=== PATIENT | female | born 1955 | race Caucasian/White ===

== ENCOUNTER → 2017-11-06 10:16 | Outpatient (CLI) | payer MEDICARE, OTHER, SELFPAY | PROVIDERS: Family Provider Family Medicine; PCP Family Medicine; Visit Provider Nurse Practitioner Acute Care | DX: G47.10 Hypersomnia, unspecified (principal) | CPT/HCPCS: 95806 ==

== ENCOUNTER → 2017-12-29 13:25 | Outpatient (CLI) | payer MEDICARE, OTHER, SELFPAY ==
[2017-12-29 15:49] LABS: Absolute Lymphocyte Count 2.29 X10^3/ul (0.83-4.51); Absolute Neutrophil Count 3.8 X10^3/uL (2.0-7.7); Basophil# 0.02 X10^3/uL; Basophil% 0.3 % (0-1); Eosinophil# 0.07 X10^3/uL; Hematocrit 42.3 % (37-47); Hemoglobin 13.6 g/dl (12.0-15.0); Lymphocyte # 2.29 X10^3/ul (4.0); Lymphocyte % 34.1 % (19-41); Mean Corp Hgb Conc 32.2 g/gl (32-36); Mean Corpuscular Volume 99.5 fL (81-99); Mean Platelet Vol. 9.5 fl (6.2-12.0); Monocyte# 0.49 X10^3/uL; Monocyte% 7.3 % (0-10); Neutrophil # 3.84 X10^3/uL (2.7-7.7); Neutrophil % 57.2 % (47-70); Platelet Count 314 K/mm3 (150-450); RBC Distribution Width CV 14.1 % (11.6-14.6); RBC Distribution Width SD 50.2 fl (35.1-43.9); Red Blood Count 4.25 M/mm3 (4.2-5.4); White Blood Count 6.7 K/mm3 (4.4-11.0)
[2017-12-29 15:58] LABS: POSITIVE COUNT NO; POSITIVE DIFFERENTIAL NO; POSITIVE MORPHOLOGY NO
[2017-12-29 16:10] LABS: ALB/GLOB Ratio 0.9 RATIO (0.9-2.4); AST(SGOT) 25 U/L (15-37); Alanine Aminotransfer ALT/SGPT 31 U/L (13-56); Albumin, Serum 3.6 g/dL (3.2-5.0); Alkaline Phosphatase 54 U/L (45-117); Anion Gap 6 (5-15); BUN 10 mg/dL (7-18); BUN/Creat Ratio 16.7 RATIO (10-20); Calcium,Total 8.9 mg/dL (8.5-10.1); Chloride 96 mmol/L (98-107); EST Glomerular Filtration Rate 108 mL/min (>60); Est Glom Filt Rate - Afr Amer 131 mL/min (>60); Globulin 3.8 g/dL (2.2-4.2); Glucose 71 mg/dL (74-106); Potassium 3.9 mmol/L (3.5-5.1); Protein, Total 7.4 g/dL (6.4-8.2); Sodium Level 133 mmol/L (136-145)
== END ==
PROVIDERS: Family Provider Family Medicine; PCP Family Medicine; Visit Provider Internal Medicine Rheumatology
DX: M05.79 Rheumatoid arthritis with rheumatoid factor of multiple sites without organ or systems involvement (principal); M79.7 Fibromyalgia; K21.0 Gastro-esophageal reflux disease with esophagitis; M81.0 Age-related osteoporosis without current pathological fracture; Z79.899 Other long term (current) drug therapy
CPT/HCPCS: 36415; 80053; 85025

== ENCOUNTER → 2018-01-01 08:47 | Outpatient (CLI) | payer MEDICARE, OTHER, SELFPAY ==
[2018-01-04 12:08] LABS: SJOGREN'S Anti-SS-A test < 0.2 AI (0.0-0.9); SJOGREN'S Anti-SS-B test < 0.2 AI (0.0-0.9)
[2018-01-05 06:07] LABS: QNTFERON TB Ag Minus Nil Value 0.02 IU/mL (.); QNTFERON TB Ag Value 0.04 IU/mL (.); QNTFERON TB Mitogen Value > 10.00 IU/mL (.); QNTFERON TB Nil Value 0.02 IU/mL (.)
[2018-01-06 11:32] LABS: QNTIFERON TB Gold Negative (Negative)
[2018-01-06 11:40] LABS: ANTINUCLEAR ANTIBODIES DIRECT Negative (Negative)
== END ==
PROVIDERS: Family Provider Family Medicine; PCP Family Medicine; Visit Provider Internal Medicine Rheumatology
DX: M06.89 Other specified rheumatoid arthritis, multiple sites (principal); M79.7 Fibromyalgia; K21.0 Gastro-esophageal reflux disease with esophagitis; M81.0 Age-related osteoporosis without current pathological fracture; M47.892 Other spondylosis, cervical region; M47.897 Other spondylosis, lumbosacral region; E03.9 Hypothyroidism, unspecified; E78.5 Hyperlipidemia, unspecified
CPT/HCPCS: 36415; 86038; 86235; 86480

== ENCOUNTER → 2018-02-03 12:39 | Outpatient (CLI) | payer OTHER, MEDICARE, SELFPAY ==
--- NOTE | 2018-02-03 12:41 | BI_ITS ---
MAMMOGRAPHY - BILATERAL SCREENING 3-D MORIAH SYNTHESIS REASON FOR EXAM: Female, 62 years old. Bilateral Screening 3-D tomosynthesis PERTINENT HISTORY: No significant family history. TECHNIQUE: 2-D mammograms and 3-D Moriah synthesis of the breast (s) were performed. CAD was performed. COMPARISON: August 26, 2016. FINDINGS: The breast composition is composed of scattered fibroglandular density. Scattered benign calcifications are seen. No dense spiculated masses or suspicious microcalcifications are identified. No architectural distortion is identified. There is no skin thickening or retraction. There has been no significant change since the prior study. BI/SCREENING MAMM (CAD), BILAT IMPRESSION: No mammographic signs of malignancy. Routine yearly mammograms recommended. ASSESSMENT CATEGORY: BIRADS Category 2: Benign. A letter regarding these results will be sent to the patient by the facility within 30 days. FOLLOW UP RECOMMENDATION: Yearly follow up mammogram recommended. (A) Approximately 10% of breast cancers are not detected by mammography. A normal mammogram should not delay biopsy of a clinically suspicious abnormality. Electronically Signed: Alejandro Ch MD at 15:46 EDT , Service support ,
== END ==
PROVIDERS: Family Provider Family Medicine; PCP Family Medicine; Visit Provider Obstetrics & Gynecology
DX: Z12.31 Encounter for screening mammogram for malignant neoplasm of breast (principal)
CPT/HCPCS: 77063; 77067

== ENCOUNTER → 2018-02-24 08:23 | Outpatient (CLI) | payer MEDICARE, OTHER, SELFPAY ==
--- NOTE | 2018-02-24 08:33 | RAD_ITS ---
STUDY: AIR-CONTRAST UPPER GI SERIES. REASON FOR EXAM: Female, 62 years old. Worsening dysphagia. FLUOROSCOPY TIME (if supplied): (0:37) minutes/seconds TECHNIQUE: The patient ingested barium. Multiple images of the esophagus, stomach and duodenum were obtained. COMPARISON: None. FINDINGS: The esophagus is unremarkable. There is no evidence of gastroesophageal reflux. No evidence of obstruction. The stomach and duodenum are unremarkable. No evidence of ulceration or mass lesion. There is evidence of prior vertebral plasty of the T11 and T12 vertebrae as well as prior fusion of the cervical spine and lower lumbar spine. RAD/Upper GI Series Only IMPRESSION: No acute abnormality is seen. Electronically Signed: Jere Emery MD at 15:38 EDT Tel [phone], Service support ,
--- NOTE | 2018-02-24 09:35 | VDLE_ITS ---
Reason For Study: PAIN Procedure LEFT Exam performed in department. GSV is normal. A preliminary report was called and/or faxed CFV is compressible, spontaneous, phasic, to Dr Araya. competent, and demonstrates normal augmentation. FV is compressible, spontaneous, phasic, competent and demonstrates normal augmentation. POP V is compressible, spontaneous, phasic, competent and demonstrates normal augmentation. T/P Trunk is compressible. PTV is compressible. LT PerV is compressible. Interpretation Summary Deep veins of the left lower extremity are patent and compressible segmentally. There is no evidence of left lower extremity deep vein thrombosis. Valvular competence appears intact within the proximal deep venous system on the left . The left greater saphenous vein appears patent and compressible segmentally. Ordering Physician: DIOGENES ARAYA Referring Physician: DIOGENES ARAYA Performed By: Linsey Ramon, MIYA, RVT
== END ==
PROVIDERS: Family Provider Family Medicine; PCP Family Medicine; Visit Provider Family Medicine
DX: M79.605 Pain in left leg (principal); R13.10 Dysphagia, unspecified
CPT/HCPCS: 74246; 93971

== ENCOUNTER → 2018-02-26 20:00 | Outpatient (CLI) | payer MEDICARE, OTHER, SELFPAY | PROVIDERS: Family Provider Family Medicine; PCP Family Medicine; Visit Provider Internal Medicine Critical Care Medicine | DX: G47.33 Obstructive sleep apnea (adult) (pediatric) (principal) | CPT/HCPCS: 95811 ==

== ENCOUNTER → 2018-03-23 12:29 | Outpatient (CLI) | payer MEDICARE, OTHER, SELFPAY ==
[2018-03-23 14:11] LABS: Absolute Lymphocyte Count 0.92 X10^3/ul (0.83-4.51); Absolute Neutrophil Count 2.4 X10^3/uL (2.0-7.7); Eosinophil# 0.04 X10^3/uL; Eosinophils% 1.1 % (0-5); Hematocrit 42.4 % (37-47); Hemoglobin 13.5 g/dl (12.0-15.0); Lymphocyte # 0.92 X10^3/ul (4.0); Lymphocyte % 25.8 % (19-41); Mean Corp Hgb Conc 31.8 g/gl (32-36); Mean Corpuscular Hgb 31.1 pg (27.0-32.0); Mean Corpuscular Volume 97.7 fL (81-99); Mean Platelet Vol. 9.6 fl (6.2-12.0); Monocyte# 0.19 X10^3/uL; Monocyte% 5.3 % (0-10); Neutrophil # 2.41 X10^3/uL (2.7-7.7); Neutrophil % 67.8 % (47-70); Platelet Count 287 K/mm3 (150-450); RBC Distribution Width SD 49.6 fl (35.1-43.9); Red Blood Count 4.34 M/mm3 (4.2-5.4); White Blood Count 3.6 K/mm3 (4.4-11.0)
[2018-03-23 14:25] LABS: ALB/GLOB Ratio 0.9 RATIO (0.9-2.4); AST(SGOT) 26 U/L (15-37); Alanine Aminotransfer ALT/SGPT 32 U/L (13-56); Albumin, Serum 3.6 g/dL (3.2-5.0); Alkaline Phosphatase 58 U/L (45-117); Anion Gap 6 (5-15); BUN 12 mg/dL (7-18); BUN/Creat Ratio 20.8 RATIO (10-20); Chloride 101 mmol/L (98-107); Creatinine, Serum 0.58 mg/dL (0.55-1.02); EST Glomerular Filtration Rate 112 mL/min (>60); Est Glom Filt Rate - Afr Amer 136 mL/min (>60); Globulin 3.8 g/dL (2.2-4.2); Glucose 55 mg/dL (74-106); Potassium 3.6 mmol/L (3.5-5.1); Protein, Total 7.4 g/dL (6.4-8.2); Sodium Level 139 mmol/L (136-145)
[2018-03-23 14:39] LABS: POSITIVE COUNT NO; POSITIVE DIFFERENTIAL NO; POSITIVE MORPHOLOGY NO
== END ==
PROVIDERS: Family Provider Family Medicine; PCP Family Medicine; Visit Provider Internal Medicine Rheumatology
DX: M05.79 Rheumatoid arthritis with rheumatoid factor of multiple sites without organ or systems involvement (principal); Z79.899 Other long term (current) drug therapy; M79.7 Fibromyalgia; K21.0 Gastro-esophageal reflux disease with esophagitis; M81.0 Age-related osteoporosis without current pathological fracture; M47.892 Other spondylosis, cervical region; M47.897 Other spondylosis, lumbosacral region; E03.9 Hypothyroidism, unspecified; E78.5 Hyperlipidemia, unspecified
CPT/HCPCS: 36415; 80053; 85025

== ENCOUNTER → 2018-06-23 09:38 | Outpatient (CLI) | payer MEDICARE, OTHER, SELFPAY ==
[2018-06-23 11:44] LABS: Absolute Lymphocyte Count 1.72 X10^3/ul (0.83-4.51); Absolute Neutrophil Count 2.8 X10^3/uL (2.0-7.7); Basophil# 0.01 X10^3/uL; Basophil% 0.2 % (0-1); Hematocrit 43.6 % (37-47); Lymphocyte # 1.72 X10^3/ul (4.0); Lymphocyte % 34.1 % (19-41); Mean Corp Hgb Conc 32.1 g/gl (32-36); Mean Corpuscular Hgb 31.5 pg (27.0-32.0); Mean Corpuscular Volume 98.2 fL (81-99); Mean Platelet Vol. 9.6 fl (6.2-12.0); Monocyte# 0.43 X10^3/uL; Monocyte% 8.5 % (0-10); Neutrophil # 2.78 X10^3/uL (2.7-7.7); Neutrophil % 55.2 % (47-70); POSITIVE COUNT NO; POSITIVE DIFFERENTIAL NO; POSITIVE MORPHOLOGY NO; Platelet Count 341 K/mm3 (150-450); RBC Distribution Width CV 14.1 % (11.6-14.6); RBC Distribution Width SD 49.8 fl (35.1-43.9); Red Blood Count 4.44 M/mm3 (4.2-5.4)
[2018-06-23 12:02] LABS: ALB/GLOB Ratio 0.8 RATIO (0.9-2.4); AST(SGOT) 26 U/L (15-37); Alanine Aminotransfer ALT/SGPT 31 U/L (13-56); Albumin, Serum 3.5 g/dL (3.2-5.0); Alkaline Phosphatase 71 U/L (45-117); Anion Gap 9 (5-15); BUN 11 mg/dL (7-18); BUN/Creat Ratio 18.8 RATIO (10-20); Calcium,Total 9.2 mg/dL (8.5-10.1); Chloride 98 mmol/L (98-107); Creatinine, Serum 0.58 mg/dL (0.55-1.02); EST Glomerular Filtration Rate 111 mL/min (>60); Est Glom Filt Rate - Afr Amer 134 mL/min (>60); Globulin 4.3 g/dL (2.2-4.2); Glucose 85 mg/dL (74-106); Potassium 3.8 mmol/L (3.5-5.1); Protein, Total 7.8 g/dL (6.4-8.2); Sodium Level 135 mmol/L (136-145)
== END ==
PROVIDERS: Family Provider Family Medicine; PCP Family Medicine; Visit Provider Internal Medicine Rheumatology
DX: M05.79 Rheumatoid arthritis with rheumatoid factor of multiple sites without organ or systems involvement (principal); M79.7 Fibromyalgia; K21.0 Gastro-esophageal reflux disease with esophagitis; M81.0 Age-related osteoporosis without current pathological fracture; M47.892 Other spondylosis, cervical region; M47.897 Other spondylosis, lumbosacral region; E03.9 Hypothyroidism, unspecified; E78.5 Hyperlipidemia, unspecified; Z79.899 Other long term (current) drug therapy
CPT/HCPCS: 36415; 80053; 85025

== ENCOUNTER → 2018-07-02 10:29 | Outpatient (CLI) | payer MEDICARE, OTHER, SELFPAY ==
[2018-07-02 11:06] LABS: Hemoglobin 13.5 g/dl (12.0-15.0)
[2018-07-02 11:35] LABS: Vitamin B12 1587 pg/mL (211-911)
[2018-07-02 12:35] LABS: Ferritin 59 ng/mL (8-252); Folates, (Folic Acid) > 100.00 ng/mL (3.1-55.4); Iron 91 ug/dL (50-170); Iron Binding Capacity,Total 337 ug/dL (250-450)
== END ==
PROVIDERS: Family Provider Family Medicine; PCP Family Medicine; Visit Provider Clinical Nurse Specialist Acute Care
DX: G47.31 Primary central sleep apnea (principal); G47.61 Periodic limb movement disorder; G25.81 Restless legs syndrome; D64.9 Anemia, unspecified
CPT/HCPCS: 36415; 82607; 82728; 82746; 83540; 83550; 85014; 85018

== ENCOUNTER → 2018-07-06 12:05 | Outpatient (CLI) | payer MEDICARE, OTHER, SELFPAY ==
[2018-07-06 13:36] LABS: Amphetamine Urine VISTA NEGATIVE (<1000 ng/mL); Barbiturate Urine VISTA NEGATIVE (< 200 ng/mL); Benzodiazepine Urine VISTA NEGATIVE (< 200 ng/mL); Cocaine Urine VISTA NEGATIVE (< 300 ng/mL); Ecstacy Urine VISTA POSITIVE (< 500 ng/mL); Methadone Urine VISTA POSITIVE (< 300 ng/mL); PCP Urine VISTA NEGATIVE (< 25 ng/mL); THC Urine VISTA NEGATIVE (< 50 ng/mL); Vista UDS pH Range 7
== END ==
PROVIDERS: Family Provider Family Medicine; PCP Family Medicine; Referring Provider Anesthesiology Pain Medicine; Visit Provider Anesthesiology Pain Medicine
DX: F11.20 Opioid dependence, uncomplicated (principal)
CPT/HCPCS: 80307

== ENCOUNTER → 2018-07-13 13:48 | Outpatient (CLI) | payer MEDICARE, OTHER, SELFPAY ==
[2018-07-13 16:12] LABS: Cholesterol 174 mg/dL (200); High Density Lipoprotein 57 mg/dL; Triglycerides 95 mg/dL; Very Low Density Lipoprotein 19 mg/dL (5-40)
== END ==
PROVIDERS: Family Provider Family Medicine; PCP Family Medicine; Referring Provider Internal Medicine Rheumatology; Visit Provider Internal Medicine Rheumatology
DX: M05.79 Rheumatoid arthritis with rheumatoid factor of multiple sites without organ or systems involvement (principal); Z79.899 Other long term (current) drug therapy; M79.7 Fibromyalgia; K21.0 Gastro-esophageal reflux disease with esophagitis; M81.0 Age-related osteoporosis without current pathological fracture; M47.892 Other spondylosis, cervical region; M47.897 Other spondylosis, lumbosacral region; E03.9 Hypothyroidism, unspecified; E78.5 Hyperlipidemia, unspecified
CPT/HCPCS: 36415; 80061

== ENCOUNTER → 2018-09-21 12:16 | Outpatient (CLI) | payer MEDICARE, OTHER, SELFPAY ==
[2018-09-15 10:56] VITALS: BMI 24.8
[2018-09-21 14:15] LABS: ALB/GLOB Ratio 0.9 RATIO (0.9-2.4); AST(SGOT) 33 U/L (15-37); Alanine Aminotransfer ALT/SGPT 35 U/L (13-56); Albumin, Serum 3.4 g/dL (3.2-5.0); Alkaline Phosphatase 54 U/L (45-117); Anion Gap 8 (5-15); BUN 10 mg/dL (7-18); BUN/Creat Ratio 16.5 RATIO (10-20); Chloride 100 mmol/L (98-107); Creatinine, Serum 0.61 mg/dL (0.55-1.02); EST Glomerular Filtration Rate 106 mL/min (>60); Est Glom Filt Rate - Afr Amer 128 mL/min (>60); Globulin 3.7 g/dL (2.2-4.2); Glucose 75 mg/dL (74-106); Potassium 3.9 mmol/L (3.5-5.1); Protein, Total 7.1 g/dL (6.4-8.2); Sodium Level 139 mmol/L (136-145)
[2018-09-21 14:18] LABS: Absolute Lymphocyte Count 1.76 X10^3/ul (0.83-4.51); Absolute Neutrophil Count 3.8 X10^3/uL (2.0-7.7); Basophil# 0.01 X10^3/uL; Basophil% 0.2 % (0-1); Eosinophil# 0.06 X10^3/uL; Hematocrit 41.1 % (37-47); Hemoglobin 13.2 g/dl (12.0-15.0); Lymphocyte # 1.76 X10^3/ul (4.0); Lymphocyte % 28.6 % (19-41); Mean Corp Hgb Conc 32.1 g/gl (32-36); Mean Corpuscular Hgb 31.7 pg (27.0-32.0); Mean Corpuscular Volume 98.8 fL (81-99); Mean Platelet Vol. 9.9 fl (6.2-12.0); Monocyte# 0.48 X10^3/uL; Monocyte% 7.8 % (0-10); Neutrophil # 3.84 X10^3/uL (2.7-7.7); Neutrophil % 62.2 % (47-70); POSITIVE COUNT NO; POSITIVE DIFFERENTIAL NO; POSITIVE MORPHOLOGY NO; Platelet Count 337 K/mm3 (150-450); RBC Distribution Width CV 14.1 % (11.6-14.6); Red Blood Count 4.16 M/mm3 (4.2-5.4); White Blood Count 6.2 K/mm3 (4.4-11.0)
--- OUTSIDE RECORDS SUMMARY | 2018-11-07 14:34 | XMS RPT_ITS ---
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 rule out Sjogren's Syndrome. 3. S/P LASIK (laser assisted in situ keratomileusis) of both eyes - ICD9: V45.69, ICD10: Z98.890 Monitor 4. Rheumatoid arthritis involving multiple sites with positive rheumatoid factor (HCC) - ICD9: 714.0, ICD10: M05.[address] Stewart. Olvin Baltazar MD I have confirmed and edited as necessary the relevant ophthalmic history, review of systems, surgical history, and ophthalmological examination findings as obtained by the ophthalmic technical staff. I have seen and examined Niru Roberson. I have discussed the examination findings, diagnosis, and treatment options with Niru Roberson and/or her family. I have also reviewed and agree with the assessment and plan as stated above and agree with all its relevant components. I gave the patient the opportunity to ask questions about the findings, diagnosis, and treatment options. CBC W/DIFF, AUTOMATED Collected: 12/29/2017 Status: F Source: KRISTIAN 1:42 PM [facility] REPOSITORY TYPE CODE TESTS RESULT OUT OF RANGE REFERENCE UNITS LAB L100.1000 4.4-11.0 K/mm3 Normal WBC 6.7 LAB L100.1200 4.2-5.4 M/mm3 Normal RBC 4.25 LAB L100.1300 12.0-15.0 g/dl Normal HGB 13.6 LAB L100.1400 37-47 % Normal HCT 42.3 LAB L100.1500 81-99 fL High MCV 99.5 LAB L100.1600 27.0-32.0 pg Normal MCH 32.0 LAB L100.1700 32-36 g/gl Normal MCHC 32.2 LAB L100.1810 11.6-14.6 % Normal RDW CV 14.1 LAB L100.1820 35.1-43.9 fl High RDW SD 50.2 LAB L100.1900 150-450 K/mm3 Normal PLT 314 LAB L100.2000 6.2-12.0 fl Normal MPV 9.5 LAB L100.2100 47-70 % Normal NEUT% 57.2 LAB L100.2200 19-41 % Normal LY% 34.1 LAB L100.2300 0-10 % Normal MONO% 7.3 LAB L100.2400 0-5 % Normal EO% 1.0 LAB L100.2500 0-1 % Normal BASO% 0.3 LAB L100.2550 0.0-0.9 % Normal IM GRAN % 0.100 Result Comment: IG% - Immature Granulocytes (promyelocytes, myelocytes and metamyelocytes) > 1% indicates that a LEFT SHIFT is Present. LAB L100.2620 2.0-7.7 X10 3/uL Normal Absolute Neut 3.8 LAB L100.2720 0.83-4.51 X10 3/ul Normal Absolute Lymph 2.29 Performed By: #### L100.0100 #### [facility] [address] [place], [address] COMPREHENSIVE METABOLIC Collected: 12/29/2017 Status: F Source: KRISTIAN GORE 1:42 PM [facility] REPOSITORY TYPE CODE TESTS RESULT OUT OF RANGE REFERENCE UNITS LAB L501.0100 74-106 mg/dL Low GLU 71 Result Comment: Please note revised GLUCOSE reference range effective 2017. LAB L501.1000 7-18 mg/dL Normal BUN 10 LAB L501.1100 0.55-1.02 mg/dL Normal CREAT,SERUM 0.60 Result Comment: The validity of the calculated GFR AND GFRAA in patients over 70 years has not been determined. Clinical correlation is essential. LAB L501.1110 >60 mL/min Normal EST GFR 108 Result Comment: Non- GFR Calc LAB L501.1115 >60 mL/min Normal EST GFR - AA 131 Result Comment: GFR Calc LAB L501.1300 10-20 RATIO Normal BUN/CRE 16.7 LAB L501.1500 6.4-8.2 g/dL T Normal PROT 7.4 LAB L501.1800 3.2-5.0 g/dL Normal ALB 3.6 LAB L501.1950 2.2-4.2 g/dL Normal GLOB 3.8 LAB L501.2000 0.9-2.4 RATIO Normal A/G 0.9 LAB L501.2200 8.5-10.1 mg/dL CA Normal 8.9 LAB L501.4100 15-37 U/L Normal AST 25 LAB L501.4305 45-117 U/L Normal ALK P 54 LAB L501.4405 13-56 U/L Normal ALT 31 Result Comment: Please note revised ALT reference range effective 2017. LAB L501.4600 0.20-1.00 mg/dL Normal T BILI 0.30 LAB L501.5300 136-145 mmol/L Low NA 133 LAB L501.5600 3.5-5.1 mmol/L Normal K 3.9 LAB L501.5900 98-107 mmol/L Low CL 96 LAB L501.6100 21.0-32.0 mmol/L Normal CO2 31.0 LAB L501.6200 5-15 Normal GAP 6 Performed By: #### L500.4050 #### [facility] [place], [address] ALLERGIES ALLERGIES DATE TYPE / CODE NAME / CODE REACTION SEVERITY SOURCE 09/15/2018 Drug adhesive Unknown Unknown [place] Allergy/416 tape/[id number](R Community 847847([facility] ED CT) Repository 09/15/2018 Drug fentanyl/H3229809 Other - anxiety [place] Krist[place] Allergy/416 71(RXNORM) Community 308986([facility] ED CT) Repository 09/15/2018 Drug valdecoxib/B37969 Hives Unknown Kristian Allergy/416 9503(RXNORM) Community 621967([facility] ED CT) Repository 09/20/2014 DRUG CALCITONIN OTHER: SEE C [facility] INGREDI/[address] [place] 697877(SNOM Repository ED CT) 07/22/2013 [facility] [place] 238656(SNOM Repository ED CT) 02/29/2004 DRUG [facility]COXIB [facility] Main [place] 969004(SNOM Repository ED CT) Drug/002640 Bextra Sikh 003([facility] CT) System Repository Drug/612418 fentaNYL Sikh 003([facility] CT) System Repository ENCOUNTERS ENCOUNTERS ADMIT/DISCHARGE ACCOUNT NUMBER ADMITTING ENCOUNTER LOCATION SOURCE CLASS 10/21/2018/10/21/[id number] [facility] Sikh Sikh [facility] ding:[facility] System IO Repository 10/21/[id number] Repository 10/20/2018/10/20/[id number] [facility] Sikh Sikh [facility] ding:[facility] System Repository 10/20/[id number] Repository 10/13/2018/10/15/19 [id number] Ambulatory [address] Main [place] Repository 10/07/2018/10/07/[id number] [facility] Sikh Sikh [facility] ding:[facility] System Repository 10/07/[id number] Repository 09/21/2018 [id number] Ambulatory [place] [facility] ding:MTLAB Repository 09/15/2018/09/15/20 [id number] Ambulatory BMSBuilding: [place] 18 [facility]MS.[facility] Hospital Repository 09/01/2018/09/03/20 [id number] Ambulatory [address] Repository 08/18/2018/08/20/20 [id number] Ambulatory [address] Repository 08/04/2018/08/05/20 [id number] Ambulatory [address] Repository 07/13/2018 [id number] [facility] ding[facility]MT[facility] Repository 07/06/2018 [id number] Ambulatory [facility] ding:LAB Repository 07/02/2018 [id number] [facility] ding:LAB Repository 06/23/2018 [id number] Ambulatory [facility] ding:MTLAB Repository 06/08/2018/06/08/20 [id number] Ambulatory BMSBuilding: [place] 18 BMS.[facility] Hospital Repository 04/30/2018/05/04/20 [id number] Ambulatory [address] Repository 03/23/2018 [id number] Ambulatory [facility] ding:MTLAB Repository 02/26/2018 [id number] Ambulatory [facility] Hospital ding:SL Repository 02/24/2018 [id number] Ambulatory [facility] ding:CVS Repository 02/03/2018 [id number] Ambulatory [facility] Hospital ding:OPBI Repository 01/19/2018/01/20/20 [id number] Ambulatory BMSBuilding: [place] 18 [facility] Hospital Repository 01/01/2018 [id number] [facility] ding:MTLAB Repository 12/29/2017/12/31/19 [id number] Ambulatory [address] Repository 12/29/2017 [id number] Ambulatory [facility] ding:MTLAB Repository 11/23/2017 [id number] Ambulatory BMSBuilding: [place]ian BMS.[facility] Hospital Repository 11/06/2017 [id number] [facility] Rep[facility] PAYERS PAYERS ENCOUNTER GUARANTOR PAYER SUBSCRIBER SOURCE 10/21/2018 NIRU S Primary NIRU S Sikh HEATERDOB: Insurance:MedicarePol HEATERDOB: [facility] [id number] icy Number: Effective [id number] System [facility] [address] Date:2018-10-[address] [facility] [address] Repository [address], [id number] [address], [place] Name:CD:[id number] [address]Pmw: [id number], [place] [address]Ubz: [id number]: (800) (GK) [phone] (HP) (WP) 10/21/2018 Secondary DYLLAN HEATERDOB: Sikh Insurance:COMMERCIAL [id number] [facility] INSURANCEPolicy 50 [address] System Number: Effective [address], Repository Date:2018-10-21 [place] [address]Pmx: [id number] Name:CD:[id number] BOX (HP)Tel: (000 [address], [place] [address]OU: 000-0000 (WP) 10/21/2018 NIRU HEATERDOB: Primary NIRU HEATERDOB: [place] [id number] Insurance:MedicarePol [id number] Hospitals [facility] icy Number: [address] [address] Repository [address], [id number] [address], [place] [id number]: Date:Plan [facility] [place] [id number]: A (GX) (HP) 10/21/2018 Secondary NIRU HEATERDOB: University Insurance:MedicarePol [id number] [facility] icy Number: [address] [facility] [address] Repository [id number] [address], Date:Plan Name:[facility] [id number]: B (HP) 10/21/2018 Tertiary DYLLAN HEATERDOB: University Insurance:CommercialP [id number] [facility] olicy Number: Repository [id number] Date:Plan Name:Health 10/20/2018 NIRU S Primary NIRU S Sikh HEATERDOB: Insurance:MedicarePol HEATERDOB: [facility] [id number] icy Number: Effective [id number] System [facility] [address] Date:2018-10-[address] [facility] [address] Repository [address], [id number] [address] Name:CD:[id number] [place] [address]Kdp: [id number], [place] [address]Lze: [phone]: (800) (HP) [phone] (HP) (WP) 10/20/2018 Secondary VALENTINES HEATERDOB: Sikh Insurance:COMMERCIAL [id number] [facility] [address] System Number: Effective [address], Repository Date:2018-10-20 [place] [address]Puy: [id number] Name:CD:[id number] BOX (HP)Tel: (000) [address] [address]MV: 000-0000 (WP) 10/20/2018 NIRU HEATERDOB: Primary NIRU HEATERDOB: [place] [id number] Insurance:MedicarePol [id number] [facility] icy Number: [address] Repository [address], [id number] [address] [id number]: Date:Plan Name:[facility] [id number]: A (HP) (HP) 10/20/2018 Secondary NIRU HEATERDOB: University Insurance:MedicarePol [id number] [facility] icy Number: [address] [facility] [address] Repository [id number] [address], Date:Plan Name:Evelyn KESSLER [id number]: B (HP) 10/20/2018 [facility]iary [facility] [place] Insurance:CommercialP [id number] [facility] olicy Number: Repository [id number] Date:Plan Name:Health 10/07/2018 NIRU S Primary NIRU S Sikh HEATERDOB: Insurance:MedicarePol HEATERDOB: [facility] icy Number: Effective [id number] Date:2018-10-[address] Repository [address], [id number] [address], [place] [address]Pmk: Name:CD:[id number] [place] [address]Oyy: [id number], [place] (HP) [phone]: (800) (HP) 000-0000 (WP) 10/07/2018 [facility] Insurance:COMMERCIAL [id number] [facility] [address] System Number: Effective [address], Repository Date:2018-10-07 [place] [address]Fee: [id number] Name:CD:[id number] BOX (HP)Tel: (000 [address] [place] [address]ZW: 000-0000 (WP) 10/07/2018 NIRU HEATERDOB: Primary NIRU HEATERDOB: [place] [id number] Insurance:MedicarePol [id number] icy Number: [address] Repository [address], [id number] [address], [place] [address]Jbx: Date:Plan Name:[place] [address]Muk: A (HP) (HP) 10/07/2018 Secondary NIRU HEATERDOB: University Insurance:MedicarePol [id number] Hospitals icy Number: [address] Repository [id number] [address] [place] [address], Date:Plan Name:[place] [id number]: B (HP) 10/07/2018 Tertiary DYLLAN HEATERDOB: University Insurance:Commercial [id number] Hospitals olicy Number: Repository [id number] Date:Plan Name:Health 09/21/2018 NIRU S Primary NIRU S [place]ian [id number] TR Insurance:MEDICARE HEATERDOB: [address], PART A [facility] [id number] [address]Sry: Number: Repository [id number] () Date:2018-09-21 09/21/2018 Secondary Dyllan L [place] Insurance:[facility] HospitalerD[facility]: [facility] [id number] Hospital BENEFITPolicy Number: Repository [id number] Date:2018-09-21[address], [place] [address]ZP: 09/21/2018 Tertiary NOT GIVENUNK [place] Insurance:SELF PAY [facility] Number: Effective Repository Date:2018-09-21 09/15/2018 NIRU S Primary NIRU S [place]ian [id number] TR Insurance:MEDICARE HEATERDOB: [address], PART A [facility] [id number] Cancer Center [address]Gpg: Number: Repository [id number] () Date:2018-06-08 09/15/2018 Secondary Dyllan L [place] Insurance:Doctors HospitalerDOB: [facility] [id number] with [facility] Number: Repository [id number] Date:2018-06-08[address] [address]MY: 09/15/2018 Tertiary NOT GIVENUNK [place] Insurance:SELF PAY [facility] Number: Effective Repository Date:2018-09-08 07/13/2018 NIRU S Primary NIRU S [place]ian [id number] TR Insurance:MEDICARE HEATERDOB: [address], PART A [facility] [id number] Cancer Center [address]Xrz: Number: Repository [id number] (HP) Date:2018-07-13 07/13/2018 Secondary Dyllan L [place] Insurance:Doctors HospitalerDOB: [facility] [id number] Hospital BENEFITPolicy Number: Repository [id number] Date:2018-07-13[address], [place] [address]MT: 07/13/2018 Tertiary NOT GIVENUNK [place] Insurance:SELF PAY [facility] Number: Effective Repository Date:2018-07-13 07/06/2018 NIRU S Primary NIRU S [place]ian [id number] TR Insurance:MEDICARE HEATERDOB: [address], PART A [facility] [id number] Hospital [place] [address]Yzt: Number: Repository [id number] (HP) Date:2018-07-06 07/06/2018 Secondary Dyllan L [place] Insurance:Doctors HospitalerB: [facility] [id number] Health Number: Repository [id number] Date:2018-07-06[address], [place] [address]ZN: 07/06/2018 Tertiary NOT GIVENUNK [place] Insurance:SELF PAY [facility] Number: Effective Repository Date:2018-07-06 07/02/2018 NIRU S Primary NIRU S [place] [id number] TR Insurance:MEDICARE HEATERDOB: [address], PART A [facility] [id number] Cancer Center [address]Bxz: Number: Repository [id number] (HP) Date:2018-07-02 07/02/2018 Secondary Dyllan L [place] Insurance:[place]IO HeaterDOB: [facility] [id number] Hospital BENEFITPolicy Number: Repository [id number] Date:2018-07-02[address] [address]ZR: 07/02/2018 Tertiary NOT GIVENUNK [place] Insurance:SELF PAY [facility] Number: Effective Repository Date:2018-07-02 06/23/2018 NIRU S Primary NIRU S [place] [id number] TR Insurance:MEDICARE HEATERDOB: [address], PART A [facility] [id number] Cancer Center [address]Tbe: Number: Repository [id number] () Date:2018-06-23 06/23/2018 Secondary Dyllan L [place] Insurance:Doctors HospitalerDOB: [facility] [id number] Hospital BENEFITPolicy Number: Repository [id number] Date:[address], [place] [address]IT: 06/23/2018 Tertiary NOT GIVENUNK [place] Insurance:SELF PAY [facility] Number: Effective Repository Date:2018-06-23 06/08/2018 NIRU S Primary NIRU S [place] [id number] TR Insurance:MEDICARE HEATERDOB: [address], PART A [facility] [id number] Hospital [place] [address]Ndv: Number: Repository [id number] (HP) Date:2018-01-19 06/08/2018 Secondary Dyllan L [place] Insurance:Doctors HospitalerDOB: [facility] [id number] Hospital BENEFITPolicy Number: Repository [id number] Date:2018-01-19[address], [place] [address]TO: 06/08/2018 Tertiary NOT GIVENUNK [place] Insurance:SELF PAY [facility] Number: Effective Repository Date:2018-04-26 03/23/2018 NIRU S Primary NIRU S [place] [id number] TR Insurance:MEDICARE HEATERDOB: [place] [address] [id number] Cancer Center [address]Acy: Number: Repository [id number] () Date:2018-03-23 03/23/2018 Secondary Dyllan L [place] Insurance:Doctors HospitalerDOB: [facility] [id number] Hospital BENEFITPolicy Number: Repository [id number] Date:[address], [place] [address]HG: 03/23/2018 Tertiary NOT GIVENUNK [place] Insurance:SELF PAY [facility] Number: Effective Repository Date:2018-03-23 02/26/2018 NIRU S Primary NIRU S [place] [id number] TR Insurance:MEDICARE HEATERDOB: [place] [address], PART A [facility] [id number] Cancer Center [address]Gyn: Number: Repository [id number] () Date:2018-01-19 02/26/2018 Secondary Dyllan L [place] Insurance:Doctors HospitalerDOB: [facility] [id number] Hospital BENEFITPolicy Number: Repository [id number] Date:2018-01-19[address], [place] [address]GN: 02/26/2018 Tertiary NOT GIVENUNK [place] Insurance:SELF PAY [facility] Number: Effective Repository Date:2018-01-19 02/24/2018 NIRU S Primary NIRU S [place] [id number] TR Insurance:MEDICARE HEATERDOB: [address], PART A [facility] [id number] Cancer Center [address]Ozh: Number: Repository [id number] () Date:2018-02-17 02/24/2018 Secondary Dyllan L [place] Insurance:Doctors HospitalerDOB: [facility] [id number] Hospital BENEFITPolicy Number: Repository [id number] Date:2018-02-17[address], [place] [address]UN: 02/24/2018 Tertiary NOT GIVENUNK [place] Insurance:SELF PAY [facility] Number: Effective Repository Date:2018-02-17 02/03/2018 NIRU S Primary Dyllan L [place] [id number] TR Insurance:Doctors HospitalerDOB: [address] [id number] Cancer Center [address]Ekz: BENEFITPolicy Number: Repository [id number] (HP) Date:2018-01-08[address], [place] [address]HY: 02/03/2018 Secondary NIRU S [place] Insurance:MEDICARE HEATERDOB: [facility] PART A [facility] [id number] Hospital Number: Repository [id number] Date:2018-01-08 02/03/2018 Tertiary NOT GIVENUNK [place] Insurance:SELF PAY [facility] Number: Effective Repository Date:2018-01-08 01/19/2018 NIRU S Primary NIRU S [place] [id number] TR Insurance:MEDICARE HEATERDOB: [place] [address], PART A [facility] [id number] Cancer Center [address]Mfa: Number: Repository [id number] () Date:2017-10-14 01/19/2018 Secondary Dyllan L [place] Insurance:[place] HeaterDOB: [facility] [id number] Hospital BENEFITPolicy Number: Repository [id number] Date:2017-10-14[address], [place] [address]QL: 01/19/2018 Tertiary NOT GIVENUNK [place] Insurance:SELF PAY [facility] Number: Effective Repository Date:2018-01-15 01/01/2018 NIRU S Primary NIRU S [place] [id number] TR Insurance:MEDICARE HEATERDOB: [address] [facility] [id number] Cancer Center [address]Nkh: Number: Repository [id number] (HP) Date:2018-01-01 01/01/2018 Secondary Dyllan L [place] Insurance:Doctors HospitalerDOB: [facility] [id number] Hospital BENEFITPolicy Number: Repository [id number] Date:2018-01-01[address] [address]XH: 01/01/2018 Tertiary NOT GIVENUNK [place] Insurance:SELF PAY [facility] Number: Effective Repository Date:2018-01-01 12/29/2017 NIRU S Primary NIRU S [place] [id number] TR Insurance:MEDICARE HEATERDOB: [address] PART A [facility] [id number] Cancer Center [address]Deu: Number: Repository [id number] () Date:2017-12-29 12/29/2017 Secondary Dyllan L [place] Insurance:Doctors HospitalerDOB: [facility] [id number] Hospital BENEFITPolicy Number: Repository [id number] Date:2017-12-29[address] [address]NN: 12/29/2017 Tertiary NOT GIVENUNK [place] Insurance:SELF PAY [facility] Number: Effective Repository Date:2017-12-29 11/23/2017 NIRU S Primary NIRU S [place] [id number] Insurance:MEDICARE HEATERDOB: [facility] [address] [facility] [address] [facility] [id number], Number: [place]ository [place] [address]Max: [id number] Date:2017-11-23 () 11/23/2017 Secondary Dyllan L [place] Insurance:Doctors HospitalerB: [facility] [id number] Hospital BENEFITPolicy Number: Repository [id number] Date:[address] [address]FO: 11/23/2017 Tertiary NOT GIVENUNK [place] Insurance:SELF PAY [facility] Number: Effective Repository Date:2017-11-23 11/06/2017 NIRU S Primary NIRU S [place] [id number] Insurance:MEDICARE HEATERDOB: [facility] PART A [facility] [id number], Number: Repository [place] [address]Rum: [id number] Date:2017-10-14 () 11/06/2017 Secondary Dyllan L [place] Insurance:[place] HeaterDOB: [facility] [id number] Hospital BENEFITPolicy Number: Repository [id number] Date:2017-10-14P.OVivi [address], [place] [address]IP: 11/06/2017 Tertiary NOT GIVENUNK [place] Insurance:SELF PAY [facility] Number: Effective Repository Date:2017-10-14
== END ==
PROVIDERS: Family Provider Family Medicine; PCP Family Medicine; Referring Provider Internal Medicine Rheumatology; Visit Provider Internal Medicine Rheumatology
DX: M05.79 Rheumatoid arthritis with rheumatoid factor of multiple sites without organ or systems involvement (principal); M79.7 Fibromyalgia; K21.0 Gastro-esophageal reflux disease with esophagitis; M81.0 Age-related osteoporosis without current pathological fracture; M47.892 Other spondylosis, cervical region; M47.897 Other spondylosis, lumbosacral region; E03.9 Hypothyroidism, unspecified; E78.5 Hyperlipidemia, unspecified; Z79.899 Other long term (current) drug therapy
CPT/HCPCS: 36415; 80053; 85025

== ENCOUNTER → 2018-12-22 11:53 | Outpatient (CLI) | payer MEDICARE, OTHER, SELFPAY ==
[2018-09-15 10:56] VITALS: BMI 24.8
[2018-12-22 14:52] LABS: Absolute Lymphocyte Count 1.43 X10^3/ul (0.83-4.51); Eosinophil# 0.04 X10^3/uL; Eosinophils% 0.8 % (0-5); Hematocrit 41.8 % (37-47); Hemoglobin 13.4 g/dl (12.0-15.0); Lymphocyte # 1.43 X10^3/ul (4.0); Lymphocyte % 28.8 % (19-41); Mean Corp Hgb Conc 32.1 g/gl (32-36); Mean Corpuscular Hgb 30.7 pg (27.0-32.0); Mean Corpuscular Volume 95.9 fL (81-99); Mean Platelet Vol. 9.7 fl (6.2-12.0); Monocyte# 0.52 X10^3/uL; Monocyte% 10.5 % (0-10); Neutrophil # 2.96 X10^3/uL (2.7-7.7); Neutrophil % 59.7 % (47-70); Platelet Count 372 K/mm3 (150-450); RBC Distribution Width CV 14.1 % (11.6-14.6); RBC Distribution Width SD 48.6 fl (35.1-43.9); Red Blood Count 4.36 M/mm3 (4.2-5.4)
[2018-12-22 14:55] LABS: POSITIVE COUNT NO; POSITIVE DIFFERENTIAL NO; POSITIVE MORPHOLOGY NO
[2018-12-22 15:07] LABS: ALB/GLOB Ratio 0.9 RATIO (0.9-2.4); AST(SGOT) 24 U/L (15-37); Alanine Aminotransfer ALT/SGPT 32 U/L (13-56); Albumin, Serum 3.6 g/dL (3.2-5.0); Alkaline Phosphatase 65 U/L (45-117); Anion Gap 6 (5-15); BUN 9 mg/dL (7-18); BUN/Creat Ratio 16.8 RATIO (10-20); Calcium,Total 8.8 mg/dL (8.5-10.1); Chloride 96 mmol/L (98-107); Creatinine, Serum 0.54 mg/dL (0.55-1.02); EST Glomerular Filtration Rate 122 mL/min (>60); Est Glom Filt Rate - Afr Amer 148 mL/min (>60); Globulin 3.9 g/dL (2.2-4.2); Glucose 77 mg/dL (74-106); Potassium 3.2 mmol/L (3.5-5.1); Protein, Total 7.5 g/dL (6.4-8.2); Sodium Level 135 mmol/L (136-145)
== END ==
PROVIDERS: Family Provider Internal Medicine Rheumatology; PCP Family Medicine; Visit Provider Internal Medicine Rheumatology
DX: M06.89 Other specified rheumatoid arthritis, multiple sites (principal); M79.7 Fibromyalgia; K21.0 Gastro-esophageal reflux disease with esophagitis; M81.0 Age-related osteoporosis without current pathological fracture; M47.892 Other spondylosis, cervical region; M47.897 Other spondylosis, lumbosacral region; E03.9 Hypothyroidism, unspecified; E78.5 Hyperlipidemia, unspecified; Z79.899 Other long term (current) drug therapy
CPT/HCPCS: 36415; 80053; 85025

== ENCOUNTER → 2019-02-23 | Outpatient (CLI) | payer MEDICARE, OTHER, SELFPAY ==
[2018-09-15 10:56] VITALS: BMI 24.8
[2019-02-23 13:07] LABS: Amphetamine Urine VISTA NEGATIVE (<1000 ng/mL); Barbiturate Urine VISTA NEGATIVE (< 200 ng/mL); Benzodiazepine Urine VISTA NEGATIVE (< 200 ng/mL); Cocaine Urine VISTA NEGATIVE (< 300 ng/mL); Ecstacy Urine VISTA POSITIVE (< 500 ng/mL); Methadone Urine VISTA POSITIVE (< 300 ng/mL); PCP Urine VISTA NEGATIVE (< 25 ng/mL); THC Urine VISTA NEGATIVE (< 50 ng/mL); Vista UDS pH Range 7
== END | disposition home or self-care (01) ==
LOC: LAB 11:23
PROVIDERS: Family Provider Internal Medicine Rheumatology; PCP Family Medicine; Referring Provider Anesthesiology Pain Medicine; Visit Provider Anesthesiology Pain Medicine
DX: F11.20 Opioid dependence, uncomplicated (principal)
CPT/HCPCS: 80307

== ENCOUNTER → 2019-03-23 | Outpatient (CLI) | payer MEDICARE, OTHER, SELFPAY ==
[2018-09-15 10:56] VITALS: BMI 24.8
[2019-03-23 14:15] LABS: Absolute Lymphocyte Count 1.95 X10^3/ul (0.83-4.51); Absolute Neutrophil Count 3.8 X10^3/uL (2.0-7.7); Basophil# 0.01 X10^3/uL; Basophil% 0.2 % (0-1); Eosinophil# 0.06 X10^3/uL; Hematocrit 41.9 % (37-47); Hemoglobin 13.8 g/dl (12.0-15.0); Lymphocyte # 1.95 X10^3/ul (4.0); Lymphocyte % 31.2 % (19-41); Mean Corp Hgb Conc 32.9 g/gl (32-36); Mean Corpuscular Hgb 31.8 pg (27.0-32.0); Mean Corpuscular Volume 96.5 fL (81-99); Monocyte# 0.42 X10^3/uL; Monocyte% 6.7 % (0-10); Neutrophil # 3.82 X10^3/uL (2.7-7.7); Neutrophil % 60.9 % (47-70); Platelet Count 353 K/mm3 (150-450); RBC Distribution Width CV 14.1 % (11.6-14.6); RBC Distribution Width SD 49.3 fl (35.1-43.9); Red Blood Count 4.34 M/mm3 (4.2-5.4); White Blood Count 6.3 K/mm3 (4.4-11.0)
[2019-03-23 14:16] LABS: POSITIVE COUNT NO; POSITIVE DIFFERENTIAL NO; POSITIVE MORPHOLOGY NO
[2019-03-23 14:35] LABS: ALB/GLOB Ratio 0.9 RATIO (0.9-2.4); AST(SGOT) 27 U/L (15-37); Alanine Aminotransfer ALT/SGPT 35 U/L (13-56); Albumin, Serum 3.5 g/dL (3.2-5.0); Alkaline Phosphatase 65 U/L (45-117); Anion Gap 6 (5-15); BUN 12 mg/dL (7-18); BUN/Creat Ratio 21.5 RATIO (10-20); Calcium,Total 8.9 mg/dL (8.5-10.1); Chloride 98 mmol/L (98-107); Creatinine, Serum 0.56 mg/dL (0.55-1.02); EST Glomerular Filtration Rate 117 mL/min (>60); Est Glom Filt Rate - Afr Amer 141 mL/min (>60); Globulin 3.9 g/dL (2.2-4.2); Glucose 77 mg/dL (74-106); Potassium 3.5 mmol/L (3.5-5.1); Protein, Total 7.4 g/dL (6.4-8.2); Sodium Level 136 mmol/L (136-145)
== END | disposition home or self-care (01) ==
LOC: MTLAB 12:24
PROVIDERS: Family Provider Family Medicine; PCP Family Medicine; Referring Provider Internal Medicine Rheumatology; Visit Provider Internal Medicine Rheumatology
DX: M05.79 Rheumatoid arthritis with rheumatoid factor of multiple sites without organ or systems involvement (principal); M79.7 Fibromyalgia; K21.0 Gastro-esophageal reflux disease with esophagitis; M81.0 Age-related osteoporosis without current pathological fracture; M47.892 Other spondylosis, cervical region; M47.897 Other spondylosis, lumbosacral region; Z79.899 Other long term (current) drug therapy
CPT/HCPCS: 36415; 80053; 85025

== ENCOUNTER → 2019-07-08 | Outpatient (CLI) | payer MEDICARE, OTHER, SELFPAY ==
[2018-09-15 10:56] VITALS: BMI 24.8
[2019-07-08 14:26] LABS: Absolute Lymphocyte Count 1.61 X10^3/uL (0.83-4.51); Basophil# 0.01 X10^3/uL; Basophil% 0.2 % (0-1); Eosinophil# 0.08 X10^3/uL; Eosinophils% 1.6 % (0-5); Hematocrit 42.8 % (37-47); Hemoglobin 13.9 g/dL (12.0-15.0); Lymphocyte # 1.61 X10^3/ul (4.0); Lymphocyte % 31.6 % (19-41); Mean Corp Hgb Conc 32.5 g/dL (32-36); Mean Corpuscular Hgb 31.4 pg (27.0-32.0); Mean Corpuscular Volume 96.6 fL (81-99); Mean Platelet Vol. 9.2 fl (6.2-12.0); Monocyte# 0.43 X10^3/uL; Monocyte% 8.4 % (0-10); NRBC Flagged by Analyzer 0 % (0-5); Neutrophil # 2.95 X10^3/uL (2.7-7.7); Platelet Count 306 K/mm3 (150-450); RBC Distribution Width CV 13.8 % (11.6-14.6); RBC Distribution Width SD 48.8 fl (35.1-43.9); Red Blood Count 4.43 M/mm3 (4.2-5.4); White Blood Count 5.1 K/mm3 (4.4-11.0)
[2019-07-08 14:58] LABS: ALB/GLOB Ratio 0.9 RATIO (0.9-2.4); AST(SGOT) 23 U/L (15-37); Alanine Aminotransfer ALT/SGPT 28 U/L (13-56); Albumin, Serum 3.6 g/dL (3.2-5.0); Alkaline Phosphatase 63 U/L (45-117); Anion Gap 6 (5-15); BUN 8 mg/dL (7-18); BUN/Creat Ratio 13.4 RATIO (10-20); Calcium,Total 9.1 mg/dL (8.5-10.1); Chloride 98 mmol/L (98-107); EST Glomerular Filtration Rate 107 mL/min (>60); Est Glom Filt Rate - Afr Amer 130 mL/min (>60); Globulin 3.9 g/dL (2.2-4.2); Glucose 78 mg/dL (74-106); Potassium 3.6 mmol/L (3.5-5.1); Protein, Total 7.5 g/dL (6.4-8.2); Sodium Level 136 mmol/L (136-145)
== END | disposition home or self-care (01) ==
LOC: MTLAB 13:12
PROVIDERS: Family Provider Family Medicine; PCP Family Medicine; Referring Provider Internal Medicine Rheumatology; Visit Provider Internal Medicine Rheumatology
DX: M05.79 Rheumatoid arthritis with rheumatoid factor of multiple sites without organ or systems involvement (principal); M79.7 Fibromyalgia; K21.0 Gastro-esophageal reflux disease with esophagitis; M81.0 Age-related osteoporosis without current pathological fracture; M47.892 Other spondylosis, cervical region; M47.897 Other spondylosis, lumbosacral region; Z79.899 Other long term (current) drug therapy
CPT/HCPCS: 36415; 80053; 85025

== ENCOUNTER → 2019-07-20 | Outpatient (CLI) | payer MEDICARE, OTHER, SELFPAY ==
[2018-09-15 10:56] VITALS: BMI 24.8
[2019-07-22 20:07] LABS: QNTFERON TB Mitogen Value > 10.00 IU/mL (.); QNTFERON TB Nil Value 0.02 IU/mL (.); QNTFERON TB1+ Ag Value 0.02 IU/mL (.); QNTFERON TB2+ Ag Value 0.02 IU/mL (.)
[2019-07-22 20:18] LABS: QNTIFERON TB Positive Criteria Negative (Negative)
== END | disposition home or self-care (01) ==
PROVIDERS: Family Provider Family Medicine; PCP Family Medicine; Referring Provider Internal Medicine Rheumatology; Visit Provider Internal Medicine Rheumatology
DX: M05.79 Rheumatoid arthritis with rheumatoid factor of multiple sites without organ or systems involvement (principal); M79.7 Fibromyalgia; K21.0 Gastro-esophageal reflux disease with esophagitis; M81.0 Age-related osteoporosis without current pathological fracture; M47.892 Other spondylosis, cervical region; M47.897 Other spondylosis, lumbosacral region; Z79.899 Other long term (current) drug therapy
CPT/HCPCS: 36415; 86480

== ENCOUNTER → 2019-09-20 10:48 | Outpatient (CLI) | payer MEDICARE, OTHER, SELFPAY ==
[2018-09-15 10:56] VITALS: BMI 24.8
--- NOTE | 2019-09-20 17:07 | PFTCOMP_ITS ---
COMPLETE PULMONARY FUNCTION TEST INTERPRETATION Brief HPI: Patient is a 64 year old female, currently under the care of myself, who presents to [facility] for complete pulmonary function tests secondary to diagnosis of asthma. Respiratory therapist reports good effort and reproducible results. Interpretation: Forced expiration spirometry shows no large airways obstructive ventilatory defect with an FEV1 of 112% predicted. There is no significant bronchodilator response by strict ATS criteria. Spirograms are of good quality and plateau slowly, indicating slowly emptying areas of the lungs. The respiratory flow volume loop shows decreased expiratory flow rates at high lung volumes consistent with small airways obstruction. Lung volumes by body plethysmography show an elevated total lung capacity at 7.29 L, 150% predicted. All other lung volumes are increased symmetrically. Diffusion capacity by carbon monoxide is normal at 100% predicted. The airway resistance is normal. Compared to previous pulmonary function tests from 03/21/2016, there has been a significant worsening in air trapping. Impression: Grossly normal pulmonary function test. Patient does have significant air trapping with hyperinflation, likely secondary to small airways disease.
== END ==
PROVIDERS: Family Provider Family Medicine; PCP Family Medicine; Referring Provider Internal Medicine Critical Care Medicine; Visit Provider Internal Medicine Critical Care Medicine
DX: J45.40 Moderate persistent asthma, uncomplicated (principal); G47.31 Primary central sleep apnea
CPT/HCPCS: 94060; 94726; 94729

== ENCOUNTER → 2019-10-18 09:54 | Outpatient (CLI) | payer MEDICARE, SELFPAY ==
[2018-09-15 10:56] VITALS: BMI 24.8
[2019-10-18 12:25] LABS: Absolute Lymphocyte Count 1.65 X10^3/uL (0.83-4.51); Absolute Neutrophil Count 4.2 X10^3/uL (2.0-7.7); Basophil# 0.01 X10^3/uL; Basophil% 0.2 % (0-1); Eosinophil# 0.08 X10^3/uL; Eosinophils% 1.2 % (0-5); Hemoglobin 14.1 g/dL (12.0-15.0); Lymphocyte # 1.65 X10^3/ul (4.0); Lymphocyte % 25.6 % (19-41); Mean Corp Hgb Conc 32.8 g/dL (32-36); Mean Corpuscular Hgb 31.8 pg (27.0-32.0); Mean Corpuscular Volume 96.8 fL (81-99); Mean Platelet Vol. 9.5 fl (6.2-12.0); Monocyte# 0.48 X10^3/uL; Monocyte% 7.5 % (0-10); NRBC Flagged by Analyzer 0 % (0-5); Neutrophil % 65.2 % (47-70); Platelet Count 356 K/mm3 (150-450); RBC Distribution Width CV 13.8 % (11.6-14.6); RBC Distribution Width SD 48.6 fl (35.1-43.9); Red Blood Count 4.44 M/mm3 (4.2-5.4); White Blood Count 6.4 K/mm3 (4.4-11.0)
[2019-10-18 12:59] LABS: ALB/GLOB Ratio 0.9 RATIO (0.9-2.4); AST(SGOT) 24 U/L (15-37); Alanine Aminotransfer ALT/SGPT 35 U/L (13-56); Albumin, Serum 3.7 g/dL (3.2-5.0); Alkaline Phosphatase 65 U/L (45-117); Anion Gap 6 (5-15); BUN 10 mg/dL (7-18); Calcium,Total 9.2 mg/dL (8.5-10.1); Chloride 97 mmol/L (98-107); Creatinine, Serum 0.59 mg/dL (0.55-1.02); EST Glomerular Filtration Rate 109 mL/min (>60); Est Glom Filt Rate - Afr Amer 132 mL/min (>60); Globulin 4.1 g/dL (2.2-4.2); Glucose 74 mg/dL (74-106); Potassium 3.1 mmol/L (3.5-5.1); Protein, Total 7.8 g/dL (6.4-8.2); Sodium Level 135 mmol/L (136-145)
== END ==
PROVIDERS: Family Provider Family Medicine; PCP Family Medicine; Referring Provider Internal Medicine Rheumatology; Visit Provider Internal Medicine Rheumatology
DX: M05.79 Rheumatoid arthritis with rheumatoid factor of multiple sites without organ or systems involvement (principal); M79.7 Fibromyalgia; K21.0 Gastro-esophageal reflux disease with esophagitis; M81.0 Age-related osteoporosis without current pathological fracture; M47.892 Other spondylosis, cervical region; M47.897 Other spondylosis, lumbosacral region; Z79.899 Other long term (current) drug therapy
CPT/HCPCS: 36415; 80053; 85025

== ENCOUNTER → 2019-10-25 14:27 | Outpatient (CLI) | payer MEDICARE, SELFPAY ==
[2018-09-15 10:56] VITALS: BMI 24.8
--- NOTE | 2019-10-25 14:32 | BI_ITS ---
MAMMOGRAPHY - BILATERAL SCREENING REASON FOR EXAM: Female, 64 years old. Routine annual screening examination. PERTINENT HISTORY: Six-month history of left breast lump. History of prior bilateral breast reduction surgery. TECHNIQUE: Digital bilateral breast moriah (3D mammographic acquisition) in the CC and MLO projections. 2-D mediolateral oblique (MLO) and craniocaudad (CC) views of both breasts were obtained. CAD: Full Field Digital Mammography with Computer Added Detection was performed. COMPARISON: Comparison is made with prior examination dated February 03, 2018 and August 26, 2016. FINDINGS: Breast Composition: The breasts are almost entirely fatty. There are no dominant masses or suspicious calcifications. No other significant abnormalities are identified. There has been no significant change since the prior study. BI/SCREEN MAMM (CAD) W/MORIAH BILAT IMPRESSION: Stable bilateral screening mammogram. With the patient''s history of a palpable abnormality in the left breast, correlation with ultrasound is recommended. ASSESSMENT CATEGORY: BIRADS Category 0: Incomplete. Need additional imaging evaluation. A letter regarding these results will be sent to the patient by the facility within 30 days. Approximately 10% of breast cancers are not detected by mammography. A normal mammogram should not delay biopsy of a clinically suspicious abnormality. [id number] Electronically Signed: Jere Emery, at 8:29 EST , Service support ,
--- NOTE | 2019-10-25 14:35 | BD_ITS ---
STUDY: DUAL ENERGY X-RAY ABSORPTIOMETRY / DXA REASON FOR EXAM: Female, 64 years old. [employer] -- HX OF SMOKING -- USES STEROID MEDS NEEDED FOR R.A. -- TAKES THYROID MEDICATION -- TAKES DIURETIC IN BP MED -- TAKES 1200MG CALCIUM + MULTIVITAMIN -- CURRENTLY ON PROLIA, HX OF BONIVA AND FORTEO -- DOES NO EXERCISE -- FAMILY HX OF OSTEO -- HX OF COMPRESSION FX''s -- HX OF KYPHOPLASTY AND LEFT HIP SURGERY -- SHAHIDA OF 5.25 INCHES TECHNIQUE: Bone Mineral Density (BMD) measurements of lumbar spine and right hip were obtained. COMPARISON: Comparison is made with prior study dated July 30, 2016. FINDINGS: Lumbar Spine (L1-L4): g/cm2 (1.149) / T-score (-0.4) / Z-score (1.1) Findings are suggestive of normal bone density with a low fracture risk. Right Femur Total: g/cm2 (0.658) / T-score (-2.8) / Z-score (-1.6) Right Femoral Neck: g/cm2 (0.677) / T-score (-2.6) / Z-score (-1.2) The T-Scores on the most recent prior examination were: Lumbar Spine (L1-L4): There has been improvement of bone density since the previous examination. Right Femur Total: which represents an improvement of 3%. BD/Dexa Bone Density Study IMPRESSION: The patient is considered osteoporotic as outlined below according to World Sean Organization (WHO) criteria with a high fracture risk. There has been improvement of bone density since the previous examination. Reference Information: The T-score is the number of standard deviations above or below the standard which is normal for young adults at their peak bone mineral density. The World Health Organization (WHO) interprets the T-scores as follows: Above -1 Normal bone density Between -1 and -2.5 Osteopenia Equal to / or below -2.5 Osteoporosis As a practical clinical guideline, osteopenia may be graded as follows: Mild -1 through -1.5 Moderate -1.6 through -2.0 Severe -2.1 through -2.4 The Z-score is the number of standard deviations above or below age-matched controls. A Z-score of less than -1.5 would be considered abnormal. References: 1. NIH Osteoporosis and Related Bone Diseases http://www.osteo.org 2. International Society for Clinical Densitometry http://www.iscd.org 3. National Osteoporosis Foundation http://www.nof.org Electronically Signed: Jere Emery, at 15:40 EST , Service support ,
== END ==
PROVIDERS: Family Provider Family Medicine; PCP Family Medicine; Referring Provider Family Medicine; Visit Provider Family Medicine
DX: Z12.31 Encounter for screening mammogram for malignant neoplasm of breast (principal); M81.8 Other osteoporosis without current pathological fracture
CPT/HCPCS: 77063; 77067; 77080

== ENCOUNTER → 2019-11-01 10:47 | Outpatient (CLI) | payer MEDICARE, SELFPAY ==
[2019-10-26 11:19] VITALS: BMI 24.8
--- NOTE | 2019-11-01 10:54 | US_ITS ---
STUDY: ULTRASOUND BREAST - LEFT REASON FOR EXAM: Female, 64 years old. Palpable lump left breast. TECHNIQUE: Axial and longitudinal images of the LEFT breast were performed with a high resolution ultrasound transducer. # OF IMAGES: 17 COMPARISON: Comparison is made with prior mammogram dated October 25, 2019 and prior ultrasound of the left breast dated August 20, 2011. FINDINGS: LEFT Breast: There is a 7 mm x 5 mm x 2 mm cyst with low-level echoes at the 7:00 position of the breast at 4 cm from nipple. This is superficial. This has decreased in size as compared to prior study. US/Breast Limited Unilateral IMPRESSION: 7 mm x 5 mm x 2 mm cyst with low level echoes within it at the 7:00 position of the breast at 4 cm from nipple. This has decreased in size as compared to prior study. ASSESSMENT CATEGORY: BIRADS Category 2: Benign. A letter regarding these results will be sent to the patient by the facility within 30 days. Electronically Signed: Jere Emery, at 11:57 EST , Service support ,
== END ==
PROVIDERS: PCP Family Medicine; Referring Provider Family Medicine; Visit Provider Family Medicine
DX: N60.02 Solitary cyst of left breast (principal)
CPT/HCPCS: 76642

== ENCOUNTER 2019-12-06 09:06 | Emergency (ER) | payer MEDICARE, SELFPAY ==
[2019-10-26 11:19] VITALS: BMI 24.8
[2019-12-06 09:07] VITALS: BP 127/76; PULSE 74; RESP 18; TEMP 36.9; O2SAT 95; BMI 29.7
[2019-12-06] MEDS: 0.9% Normal Saline 1,000 ML 150 ML IV (09:46)
[2019-12-06 09:49] LABS: Absolute Lymphocyte Count 0.75 X10^3/uL (0.83-4.51); Absolute Neutrophil Count 4.2 X10^3/uL (2.0-7.7); Hematocrit 40.6 % (37-47); Hemoglobin 13.8 g/dL (12.0-15.0); Lymphocyte # 0.75 X10^3/ul (4.0); Lymphocyte % 14.1 % (19-41); Mean Corpuscular Hgb 31.3 pg (27.0-32.0); Mean Corpuscular Volume 92.1 fL (81-99); Mean Platelet Vol. 9.2 fl (6.2-12.0); Monocyte# 0.34 X10^3/uL; Monocyte% 6.4 % (0-10); NRBC Flagged by Analyzer 0 % (0-5); Neutrophil # 4.21 X10^3/uL (2.7-7.7); Neutrophil % 79.3 % (47-70); Platelet Count 227 K/mm3 (150-450); RBC Distribution Width CV 13.3 % (11.6-14.6); RBC Distribution Width SD 44.5 fl (35.1-43.9); Red Blood Count 4.41 M/mm3 (4.2-5.4); White Blood Count 5.3 K/mm3 (4.4-11.0)
--- NOTE | 2019-12-06 09:52 | RAD_ITS ---
EXAM DESCRIPTION: PA and lateral chest CLINICAL HISTORY: 64 years Female, CHEST PAIN, DYSPNEA CHEST PAIN, DYSPNEA COMPARISON: Previously chest obtained on 04/11/2014 FINDINGS: There are''s syndrome old vertebroplasty involving the T12 and L1 vertebral bodies. There is some loss of vertebral body height involving T10 and T11 in this patient with mild diffuse osteoporosis.The heart and mediastinum appear to be within normal limits. The lungs appear to be well areated without evidence of pneumonic consolidation or pleural effusion. Subsegmental atelectasis is noted in the left lung base. RAD/Chest PA and Lateral IMPRESSION: No acute pathology or change from the prior chest x-ray. Electronically Signed: Scott Taylor, at 10:31 EST Tel , Service support ,
[2019-12-06 10:04] LABS: Anion Gap 9 (5-15); BUN 7 mg/dL (7-18); BUN/Creat Ratio 13.1 RATIO (10-20); Calcium,Total 9.1 mg/dL (8.5-10.1); Chloride 88 mmol/L (98-107); Creatinine, Serum 0.53 mg/dL (0.55-1.02); EST Glomerular Filtration Rate 122 mL/min (>60); Est Glom Filt Rate - Afr Amer 148 mL/min (>60); Estimated Creatinine Clearance 88.71 ml/min; Glucose 84 mg/dL (74-106); Potassium 2.8 mmol/L (3.5-5.1); Sodium Level 126 mmol/L (136-145)
--- NOTE | 2019-12-06 10:23 | EKG12_ITS ---
Test Reason : CP/SOB Blood Pressure : / mmHG Vent. Rate : 074 BPM Atrial Rate : 074 BPM P-R Int : 186 ms QRS Dur : 090 ms QT Int : 422 ms P-R-T Axes : 050 -19 018 degrees QTc Int : 468 ms Normal sinus rhythm Normal ECG Confirmed by ASHLEE MORENO ([id number]), editor index HELEN PELAYO ([id number]) on 12/07/2019 3:03:51 PM Referred By: VIANCA Confirmed By:ASHLEE MORENO
--- NOTE | 2019-12-06 11:04 | ED.VISSUMM ---
- ER Visit Summary Date of Service: 12/06/19 Chief Complaint: [Shortness of breath and right-sided back pain] History of Present Illness: The patient is a 64 F [is emergency department complaint of shortness of breath. Patient states she was diagnosed with influenza 5 days ago. Patient states that 4 days ago she stretched and felt a sudden onset of pain in the right side of her back. Now patient has a hard time taking a deep breath or moving because of the pain. Patient is concerned she may have a collapsed lung. Patient states that she is had history of collapsed lung years ago. Patient has history of hypertension, asthma, hypothyroidism, and obstructive sleep apnea. She generally feels weak.] Patient is in pain management and chronically on methadone. Physical Examination: [HEENT-PERRLA, EOMI. Cranial nerves II through XII grossly intact. TMs clear. Mucous membranes moist. No adenopathy. Cardiovascular-regular rate and rhythm without murmur or ectopy Lungs-clear to auscultation, chest wall stable without crepitus or subcu emphysema Abdomen-normoactive bowel sounds, soft, nontender, no rebound or rigidity, no peritoneal signs. Extremities-intact ?4, normal range of motion, normal pulses, atraumatic] Test Results: [EKG obtained arrival shows sinus rhythm with a ventricular rate of 74 bpm with no acute segment changes. CBC with differential obtained showed a white count 5.3, hemoglobin 13.8, hematocrit 41, placed 227. Chemistry showed a low sodium of 126, potassium 2.8, chloride 88, CO2 24, BUN 7, creatinine 0.53, glucose 84. X-ray showed nothing acute.] Emergency Department Course and Treatment: [Patient was ordered potassium chloride 40 mEq p.o. Patient was given normal saline.] I suspect her pain likely is related to chest wall type pain. We did not see any obvious rib fractures. Patient has her own methadone with her and she was instructed to take it. Treatment Plan: [Admit] Disposition: [Admit] Impression: [Back pain Hyponatremia Hypokalemia] This note was generated with [employer] software. It may contain incorrect words, spelling, and punctuation that were not noted in review of the chart prior to signing ED Disposition - Plan for ED Patient: Referrals: Yadiel Stewart MD [Primary Care Provider] -
[2019-12-06 11:12] VITALS: BP 132/72; PULSE 69; RESP 17; RESP 18; TEMP 36.9; O2SAT 97
--- NOTE | 2019-12-06 12:13 | ED.DEP ---
ED Disposition - Plan for ED Patient: Instructions: Chest Wall Strain, INFLUENZA (Adult), Hypokalemia Referrals: Yadiel Stewart MD [Primary Care Provider] - 3-5 Days Additional Instructions: have electrolyte blood work checked in 5-7 days stop Indapamide Start Maxide tomorrow
--- NOTE | 2019-12-06 12:14 | NURSING ---
DR PARK IN ER
[2019-12-06 12:25] VITALS: BP 133/73; PULSE 74; RESP 16; O2SAT 94
== END 2019-12-06 12:45 | disposition home or self-care (01) ==
LOC: ED 09:54
PROVIDERS: Emergency Provider Emergency Medicine; PCP Family Medicine
DX: E87.1 Hypo-osmolality and hyponatremia (principal); E87.6 Hypokalemia; T50.2X5A Adverse effect of carbonic-anhydrase inhibitors, benzothiadiazides and other diuretics, initial encounter; Y92.9 Unspecified place or not applicable; M54.6 Pain in thoracic spine; I10 Essential (primary) hypertension; J45.909 Unspecified asthma, uncomplicated; E03.9 Hypothyroidism, unspecified
CPT/HCPCS: 71046; 80048; 85025; 93005; 96360; 96361; 99285; J7030; A4216

== ENCOUNTER → 2020-01-11 11:53 | Outpatient (CLI) | payer MEDICARE, SELFPAY ==
[2020-01-11 15:20] LABS: Absolute Lymphocyte Count 2.12 X10^3/uL (0.83-4.51); Absolute Neutrophil Count 2.8 X10^3/uL (2.0-7.7); Basophil# 0.02 X10^3/uL; Basophil% 0.4 % (0-1); Eosinophil# 0.07 X10^3/uL; Eosinophils% 1.3 % (0-5); Hemoglobin 13.8 g/dL (12.0-15.0); Lymphocyte # 2.12 X10^3/ul (4.0); Lymphocyte % 38.9 % (19-41); Mean Corp Hgb Conc 31.4 g/dL (32-36); Mean Corpuscular Hgb 30.5 pg (27.0-32.0); Mean Corpuscular Volume 97.1 fL (81-99); Mean Platelet Vol. 10.1 fl (6.2-12.0); Monocyte# 0.41 X10^3/uL; Monocyte% 7.5 % (0-10); NRBC Flagged by Analyzer 0 % (0-5); Neutrophil # 2.82 X10^3/uL (2.7-7.7); Neutrophil % 51.7 % (47-70); Platelet Count 338 K/mm3 (150-450); RBC Distribution Width CV 13.9 % (11.6-14.6); RBC Distribution Width SD 49.7 fl (35.1-43.9); Red Blood Count 4.53 M/mm3 (4.2-5.4); White Blood Count 5.5 K/mm3 (4.4-11.0)
[2020-01-11 15:34] LABS: ALB/GLOB Ratio 0.9 RATIO (0.9-2.4); AST(SGOT) 23 U/L (15-37); Alanine Aminotransfer ALT/SGPT 28 U/L (13-56); Albumin, Serum 3.9 g/dL (3.2-5.0); Alkaline Phosphatase 83 U/L (45-117); Anion Gap 5 (5-15); BUN 13 mg/dL (7-18); BUN/Creat Ratio 19.8 RATIO (10-20); Calcium,Total 9.7 mg/dL (8.5-10.1); Chloride 98 mmol/L (98-107); Creatinine, Serum 0.66 mg/dL (0.55-1.02); EST Glomerular Filtration Rate 96 mL/min (>60); Est Glom Filt Rate - Afr Amer 116 mL/min (>60); Globulin 4.2 g/dL (2.2-4.2); Glucose 79 mg/dL (74-106); Potassium 3.6 mmol/L (3.5-5.1); Protein, Total 8.1 g/dL (6.4-8.2); Sodium Level 133 mmol/L (136-145)
== END ==
PROVIDERS: PCP Family Medicine; Referring Provider Internal Medicine Rheumatology; Visit Provider Internal Medicine Rheumatology
DX: M05.79 Rheumatoid arthritis with rheumatoid factor of multiple sites without organ or systems involvement (principal); Z79.899 Other long term (current) drug therapy; M79.7 Fibromyalgia; K21.0 Gastro-esophageal reflux disease with esophagitis; M81.0 Age-related osteoporosis without current pathological fracture; M47.892 Other spondylosis, cervical region; M47.897 Other spondylosis, lumbosacral region; E03.9 Hypothyroidism, unspecified; E78.5 Hyperlipidemia, unspecified
CPT/HCPCS: 36415; 80053; 85025

== ENCOUNTER → 2020-02-08 13:24 | Outpatient (CLI) | payer MEDICARE, SELFPAY ==
--- NOTE | 2020-02-08 13:30 | RAD_ITS ---
STUDY: X-RAY - THORACIC SPINE REASON FOR EXAM: Female, 64 years old. BACK PAIN TECHNIQUE: 3 view(s) of the thoracic spine were obtained. COMPARISON: Comparison is made with prior study dated August 22, 2014. FINDINGS: Normal kyphosis of the thoracic spine. There is no substantial scoliosis. There is demineralization of the thoracic spine. There is multilevel disc space narrowing of the thoracic spine. Prior vertebroplasty of 2 lower dorsal vertebrae. This is unchanged. Once again, barium is seen within the bronchial tree in comparison with prior aspiration. RAD/Thoracic Spine 3 Views IMPRESSION: Stable examination. Prior vertebroplasty of 2 lower dorsal vertebrae. Electronically Signed: Jere Emery, at 14:05 EDT , Service support ,
== END ==
PROVIDERS: PCP Family Medicine; Referring Provider Anesthesiology Pain Medicine; Visit Provider Anesthesiology Pain Medicine
DX: M54.9 Dorsalgia, unspecified (principal)
CPT/HCPCS: 72072

== ENCOUNTER 2020-02-24 10:10 | Day surgery (SDC) | payer MEDICARE, SELFPAY ==
[2020-02-24] VITALS (7 sets, daily range): BP systolic 109–135; BP diastolic 63–78; PULSE 61–84; RESP 16–18; TEMP 36.5–36.6; O2SAT 93–100; BMI 25.3
[2020-02-24] MEDS: Lactated Ringers 1,000 ML 100 ML IV ×2 (10:58→14:56)
--- NOTE | 2020-02-24 11:40 | RAD_ITS ---
INDICATION: INSERTION PAIN PUMP, INTRATHECAL. 65.7 SEC. EXAMINATION/TECHNIQUE: X-RAY - IR Kyphoplasty Lumbar 1 Body Unilat / Bilat With Imaging Guidance COMPARISON: None FINDINGS: Intraoperative imaging provided for vertebroplasty of the lower lumbar vertebrae. Electronically Signed: Jere Emery, at 14:34 EDT , Service support , RAD/Spine 1 View Any Level
[2020-02-24] MEDS: Cefazolin 2 GM in 0.9% Normal Saline 100 ML IV (12:28)
[2020-02-24] MEDS: 0.9% Normal Saline (Pres. free 10 ML Vial (13:10)
[2020-02-24] MEDS: Bupiv/Epi 0.25% 30 ML Vial (13:15)
== END 2020-02-24 15:58 | disposition home or self-care (01) ==
LOC: SDC 10:11 → AC 10:12
PROVIDERS: PCP Family Medicine; Referring Provider Anesthesiology Pain Medicine; Visit Provider Anesthesiology Pain Medicine
PROC: (CPT 62350; principal; 2020-02-24 11:25)
DX: Z45.42 Encounter for adjustment and management of neurostimulator (principal); G89.4 Chronic pain syndrome; M47.894 Other spondylosis, thoracic region; M51.34 Other intervertebral disc degeneration, thoracic region; M96.1 Postlaminectomy syndrome, not elsewhere classified; M47.814 Spondylosis without myelopathy or radiculopathy, thoracic region; Z79.899 Other long term (current) drug therapy; Z79.891 Long term (current) use of opiate analgesic; I10 Essential (primary) hypertension; Z87.891 Personal history of nicotine dependence; J45.909 Unspecified asthma, uncomplicated; G25.81 Restless legs syndrome; K21.9 Gastro-esophageal reflux disease without esophagitis; E78.00 Pure hypercholesterolemia, unspecified; Z11.59 Encounter for screening for other viral diseases
CPT/HCPCS: 01936; 62350; 62361; 72020; 76000; 87635; C1778; C1820; G2023; J7120; J2274; J2405; J3490; U0002

== ENCOUNTER → 2020-03-13 14:44 | Outpatient (CLI) | payer MEDICARE, SELFPAY ==
[2020-02-24 10:44] VITALS: BMI 25.3
--- NOTE | 2020-03-13 14:49 | CT_ITS ---
STUDY: CT THORACIC SPINE WITHOUT CONTRAST REASON FOR EXAM: Female, 64 years old. UPPER BACK PAIN RADIATING BETWEEN SHOULDER BLADES RADIATION DOSAGE (If Supplied By Facility): CTDIvol = ( 37.92 ) mGy, DLP = ( 1291.54 ) mGycm TECHNIQUE: The patient was scanned in a multi detector CT scanner. High resolution imaging was performed. Images were obtained from T1 to T12 vertebrae. Sagittal and coronal images were reconstructed. Individualized dose optimization techniques were used for this CT. COMPARISON: Comparison is made with prior study dated January 24, 2014. FINDINGS: Normal visualized cervical spine. Normal kyphosis of the thoracic spine. There is a levoscoliosis of the thoracic spine. Prior vertebroplasty of the T11 and T12 vertebrae. Almost complete collapse of the T7 and T8 thoracic vertebrae. Loss of height of the superior endplate of the L1 vertebrae. There is multilevel degenerative disc disease with loss of the disc space heights. Multiple bilateral scattered calcified granulomas. Calcified mediastinal lymph nodes as well as bilateral hilar. CT/Spine Thoracic without Contras IMPRESSION: Prior vertebroplasty of the T11 and T12 vertebrae. Almost complete collapse of the T7 and T8 vertebrae at this time. Electronically Signed: Jere Emery, at 15:18 EDT , Service support ,
== END ==
PROVIDERS: PCP Family Medicine; Referring Provider Anesthesiology Pain Medicine; Visit Provider Anesthesiology Pain Medicine
DX: M54.9 Dorsalgia, unspecified (principal)
CPT/HCPCS: 72128

== ENCOUNTER → 2020-03-20 11:20 | Outpatient (CLI) | payer MEDICARE, SELFPAY ==
[2020-02-24 10:44] VITALS: BMI 25.3
[2020-03-20 15:12] LABS: Absolute Lymphocyte Count 2.25 X10^3/uL (0.83-4.51); Absolute Neutrophil Count 5.1 X10^3/uL (2.0-7.7); Basophil# 0.03 X10^3/uL; Basophil% 0.4 % (0-1); Eosinophil# 0.14 X10^3/uL; Eosinophils% 1.7 % (0-5); Hematocrit 45.4 % (37-47); Hemoglobin 14.9 g/dL (12.0-15.0); Lymphocyte # 2.25 X10^3/ul (4.0); Lymphocyte % 27.8 % (19-41); Mean Corp Hgb Conc 32.8 g/dL (32-36); Mean Corpuscular Hgb 31.5 pg (27.0-32.0); Mean Platelet Vol. 9.2 fl (6.2-12.0); Monocyte# 0.59 X10^3/uL; Monocyte% 7.3 % (0-10); NRBC Flagged by Analyzer 0 % (0-5); Neutrophil # 5.05 X10^3/uL (2.7-7.7); Neutrophil % 62.4 % (47-70); Platelet Count 380 K/mm3 (150-450); RBC Distribution Width CV 13.5 % (11.6-14.6); RBC Distribution Width SD 47.5 fl (35.1-43.9); Red Blood Count 4.73 M/mm3 (4.2-5.4); White Blood Count 8.1 K/mm3 (4.4-11.0)
[2020-03-20 15:43] LABS: ALB/GLOB Ratio 0.9 RATIO (0.9-2.4); AST(SGOT) 22 U/L (15-37); Alanine Aminotransfer ALT/SGPT 41 U/L (13-56); Albumin, Serum 3.6 g/dL (3.2-5.0); Alkaline Phosphatase 88 U/L (45-117); Anion Gap 8 (5-15); BUN 11 mg/dL (7-18); BUN/Creat Ratio 17.8 RATIO (10-20); Calcium,Total 9.5 mg/dL (8.5-10.1); Chloride 95 mmol/L (98-107); Creatinine, Serum 0.62 mg/dL (0.55-1.02); EST Glomerular Filtration Rate 103 mL/min (>60); Est Glom Filt Rate - Afr Amer 125 mL/min (>60); Globulin 3.9 g/dL (2.2-4.2); Glucose 122 mg/dL (74-106); Potassium 3.6 mmol/L (3.5-5.1); Protein, Total 7.5 g/dL (6.4-8.2); Sodium Level 129 mmol/L (136-145)
== END ==
PROVIDERS: PCP Family Medicine; Referring Provider Internal Medicine Rheumatology; Visit Provider Internal Medicine Rheumatology
DX: M05.79 Rheumatoid arthritis with rheumatoid factor of multiple sites without organ or systems involvement (principal); Z79.899 Other long term (current) drug therapy; M79.7 Fibromyalgia; K21.0 Gastro-esophageal reflux disease with esophagitis; M81.0 Age-related osteoporosis without current pathological fracture; M47.892 Other spondylosis, cervical region; M47.897 Other spondylosis, lumbosacral region; E03.9 Hypothyroidism, unspecified; E78.5 Hyperlipidemia, unspecified
CPT/HCPCS: 36415; 80053; 85025

== ENCOUNTER → 2020-05-23 13:04 | Outpatient (CLI) | payer MEDICARE, SELFPAY ==
[2020-04-25 10:17] VITALS: BMI 25.3
--- NOTE | 2020-05-23 13:09 | MRI_ITS ---
STUDY: MRI THORACIC SPINE WITHOUT CONTRAST REASON FOR EXAM: Female, 64 years old. back pain -- compression fx, severe back pain TECHNIQUE: Standardized fat and water weighted pulse sequences were obtained in the sagittal and axial planes. COMPARISON: CT 03/13/2020 FINDINGS: Normal kyphosis of the thoracic spine. Mild levoscoliosis. Chronic moderate compression fracture of T5 without retropulsion into the spinal canal. Chronic mild compression fracture of T7 without retropulsion into the spinal canal. Chronic moderate compression fracture of T8 without retropulsion into the spinal canal. Acute mild compression fracture of T9 without retropulsion into the spinal canal. Chronic moderate compression fracture of T10 without retropulsion into the spinal canal. Chronic mild compression fracture the inferior endplate of T11 without retropulsion into the spinal canal. Chronic mild compression fractures of T12 and L1 treated with vertebroplasty. T1-2, T2-3, T3-4, T4-5, T5-6, T6-7, T7-8, T8-9, T9-10, T10-11, T11-12: Normal endplates. Normal disc hydration, heights and morphology of the corresponding intervertebral discs. Normal central canal and intervertebral neural foramina at the corresponding levels. Normal visualized thoracic cord. Normal conus medullaris that terminates at the L1.. The soft tissue structures are unremarkable. MRI/Spine Thoracic (Routine) IMPRESSION: Acute mild compression fracture of T9 without retropulsion into the spinal canal. Electronically Signed: Randall Oglesby MD at 15:48 EDT Tel , Service support ,
== END ==
PROVIDERS: PCP Family Medicine
DX: M41.50 Other secondary scoliosis, site unspecified (principal)
CPT/HCPCS: 72146

== ENCOUNTER → 2020-06-21 11:52 | Outpatient (CLI) | payer MEDICARE, SELFPAY ==
[2020-04-25 10:17] VITALS: BMI 25.3
[2020-06-21 15:23] LABS: Absolute Lymphocyte Count 2.39 X10^3/uL (0.83-4.51); Absolute Neutrophil Count 4.8 X10^3/uL (2.0-7.7); Basophil# 0.03 X10^3/uL; Basophil% 0.4 % (0-1); Eosinophil# 0.09 X10^3/uL; Eosinophils% 1.1 % (0-5); Hematocrit 43.5 % (37-47); Lymphocyte # 2.39 X10^3/ul (4.0); Lymphocyte % 30.5 % (19-41); Mean Corp Hgb Conc 32.2 g/dL (32-36); Mean Corpuscular Hgb 31.1 pg (27.0-32.0); Mean Corpuscular Volume 96.7 fL (81-99); Mean Platelet Vol. 9.5 fl (6.2-12.0); Monocyte# 0.48 X10^3/uL; Monocyte% 6.1 % (0-10); NRBC Flagged by Analyzer 0 % (0-5); Neutrophil # 4.81 X10^3/uL (2.7-7.7); Neutrophil % 61.4 % (47-70); Platelet Count 414 K/mm3 (150-450); RBC Distribution Width CV 13.2 % (11.6-14.6); RBC Distribution Width SD 46.4 fl (35.1-43.9); White Blood Count 7.8 K/mm3 (4.4-11.0)
[2020-06-21 15:37] LABS: AST(SGOT) 24 U/L (15-37); Alanine Aminotransfer ALT/SGPT 31 U/L (13-56); Albumin, Serum 3.8 g/dL (3.2-5.0); Alkaline Phosphatase 74 U/L (45-117); Anion Gap 7 (5-15); BUN 14 mg/dL (7-18); BUN/Creat Ratio 18.8 RATIO (10-20); Calcium,Total 9.4 mg/dL (8.5-10.1); Chloride 100 mmol/L (98-107); Creatinine, Serum 0.74 mg/dL (0.55-1.02); EST Glomerular Filtration Rate 83 mL/min (>60); Est Glom Filt Rate - Afr Amer 101 mL/min (>60); Glucose 82 mg/dL (74-106); Potassium 3.5 mmol/L (3.5-5.1); Protein, Total 7.8 g/dL (6.4-8.2); Sodium Level 136 mmol/L (136-145)
== END ==
PROVIDERS: PCP Family Medicine; Referring Provider Internal Medicine Rheumatology; Visit Provider Internal Medicine Rheumatology
DX: M05.79 Rheumatoid arthritis with rheumatoid factor of multiple sites without organ or systems involvement (principal); M79.7 Fibromyalgia; K21.0 Gastro-esophageal reflux disease with esophagitis; M81.0 Age-related osteoporosis without current pathological fracture; M47.892 Other spondylosis, cervical region; M47.897 Other spondylosis, lumbosacral region; E03.9 Hypothyroidism, unspecified; E78.5 Hyperlipidemia, unspecified; Z79.899 Other long term (current) drug therapy
CPT/HCPCS: 36415; 80053; 85025

== ENCOUNTER → 2020-08-08 12:47 | Outpatient (CLI) | payer MEDICARE, SELFPAY ==
[2020-07-26 10:54] VITALS: BMI 27.4
--- NOTE | 2020-08-08 12:48 | CT_ITS ---
HISTORY: Dyspnea. wAS POSITIVE FOR COVID APRIL 2020 AND STILL HAS COUGH. KYPHOPLASTY TECHNIQUE: Helically acquired images of the chest were obtained without IV contrast. Number of images including paperwork: [phone]. A radiation dose optimization technique was used for this scan. COMPARISON: 03/21/2016 FINDINGS: VASCULATURE: Vascular tortuosity. Areas of increased density material within the upper lobe pulmonary arteries, appearance similar to previous. HEART/PERICARDIUM: Normal heart size. Coronary calcification. MEDIASTINUM: Small hiatal hernia. ADENOPATHY: No pathologic appearing adenopathy. THYROID: Unremarkable visualized portions. LUNG PARENCHYMA: No consolidation or mass. Mild linear bilateral opacities compatible with subsegmental atelectasis versus scarring, mildly increased compared to previous. PLEURAL SPACES: Unremarkable. UPPER ABDOMEN: Colonic diverticulosis. Granulomatous calcification. OSSEOUS AND SOFT TISSUE STRUCTURES: Radiopaque cement noted within T12 and L1. Super endplate compression fractures of T11 L2 and L3 appear grossly similar. Compression of remedies with mild to moderate loss of height are noted at T3, T5, T7, T8, T9 and T10, new or increased compared to previous. No definite fracture line or paraspinous hematoma to suggest acute fracture. Correlation for localized pain suggested. Mineralization appears decreased. DEVICES: Cervical spine hardware partially visible. CT/Chest without Contrast IMPRESSION: 1. Mild increase in linear basilar opacities compatible subsegmental atelectasis and/or scarring. 2. Multiple compression deformities in the thoracic spine are new compared to previous, as above. 3. Additional findings above. Individualized dose optimization techniques were used for this CT. at 2341 Reported and signed by: Jessica Roche MD Electronically Signed: Jessica Roche MD at 23:41 EDT Tel , Service support ,
== END ==
PROVIDERS: PCP Family Medicine; Referring Provider Nurse Practitioner Acute Care; Visit Provider Nurse Practitioner Acute Care
DX: R06.00 Dyspnea, unspecified (principal)
CPT/HCPCS: 71250

== ENCOUNTER → 2020-08-23 10:30 | Outpatient (CLI) | payer MEDICARE, SELFPAY ==
[2020-07-26 10:54] VITALS: BMI 27.4
--- NOTE | 2020-08-23 17:28 | PFTCOMP ---
COMPLETE PULMONARY FUNCTION TEST INTERPRETATION Brief HPI: Patient is a 64 year old female, currently under the care of myself, who presents to [facility] for complete pulmonary function tests secondary to diagnosis of dyspnea. Respiratory therapist reports good effort and reproducible results. Interpretation: Forced expiration spirometry shows a mild large airways obstructive ventilatory defect with an FEV1 of 98% predicted. There is no significant bronchodilator response by strict ATS criteria. Spirograms are of good quality and plateau slowly, indicating slowly emptying areas of the lungs. The respiratory flow volume loop shows decreased expiratory flow rates at all lung volumes consistent with airway obstruction. Lung volumes by body plethysmography show an elevated total lung capacity at 5.55 L, 119% predicted. All other lung volumes are increased symmetrically. Diffusion capacity by carbon monoxide is normal at 115% predicted. The airway resistance is normal. Compared to previous pulmonary function tests from 09/20/2019, there is been significant improvement in air trapping and DLCO. Impression: Irreversible mild large airways obstructive ventilatory defect with significant improvement compared to previous.
== END ==
PROVIDERS: PCP Family Medicine; Referring Provider Nurse Practitioner Acute Care; Visit Provider Nurse Practitioner Acute Care
DX: R06.00 Dyspnea, unspecified (principal)
CPT/HCPCS: 94060; 94726; 94729

== ENCOUNTER → 2020-09-25 13:15 | Outpatient (CLI) | payer MEDICARE, SELFPAY ==
[2020-07-26 10:54] VITALS: BMI 27.4
[2020-09-25 15:29] LABS: Absolute Lymphocyte Count 2.29 X10^3/uL (0.83-4.51); Absolute Neutrophil Count 3.3 X10^3/uL (2.0-7.7); Basophil# 0.02 X10^3/uL; Basophil% 0.3 % (0-1); Eosinophil# 0.05 X10^3/uL; Eosinophils% 0.8 % (0-5); Hematocrit 44.2 % (37-47); Hemoglobin 14.4 g/dL (12.0-15.0); Lymphocyte # 2.29 X10^3/ul (4.0); Lymphocyte % 37.6 % (19-41); Mean Corp Hgb Conc 32.6 g/dL (32-36); Mean Corpuscular Hgb 31.6 pg (27.0-32.0); Mean Corpuscular Volume 97.1 fL (81-99); Mean Platelet Vol. 9.9 fl (6.2-12.0); Monocyte# 0.44 X10^3/uL; Monocyte% 7.2 % (0-10); NRBC Flagged by Analyzer 0 % (0-5); Neutrophil # 3.27 X10^3/uL (2.7-7.7); Neutrophil % 53.8 % (47-70); Platelet Count 376 K/mm3 (150-450); RBC Distribution Width SD 46.7 fl (35.1-43.9); Red Blood Count 4.55 M/mm3 (4.2-5.4); White Blood Count 6.1 K/mm3 (4.4-11.0)
[2020-09-25 15:50] LABS: ALB/GLOB Ratio 0.9 RATIO (0.9-2.4); AST(SGOT) 20 U/L (15-37); Alanine Aminotransfer ALT/SGPT 28 U/L (13-56); Albumin, Serum 3.8 g/dL (3.2-5.0); Alkaline Phosphatase 76 U/L (45-117); Anion Gap 7 (5-15); BUN 14 mg/dL (7-18); BUN/Creat Ratio 19.5 RATIO (10-20); Calcium,Total 9.6 mg/dL (8.5-10.1); Chloride 101 mmol/L (98-107); Creatinine, Serum 0.72 mg/dL (0.55-1.02); EST Glomerular Filtration Rate 87 mL/min (>60); Est Glom Filt Rate - Afr Amer 105 mL/min (>60); Globulin 4.1 g/dL (2.2-4.2); Glucose 74 mg/dL (74-106); Potassium 3.7 mmol/L (3.5-5.1); Protein, Total 7.9 g/dL (6.4-8.2); Sodium Level 136 mmol/L (136-145)
== END ==
PROVIDERS: PCP Family Medicine; Referring Provider Internal Medicine Rheumatology; Visit Provider Internal Medicine Rheumatology
DX: M05.79 Rheumatoid arthritis with rheumatoid factor of multiple sites without organ or systems involvement (principal); M79.7 Fibromyalgia; M81.0 Age-related osteoporosis without current pathological fracture; M47.892 Other spondylosis, cervical region; M47.897 Other spondylosis, lumbosacral region; E03.9 Hypothyroidism, unspecified; E78.5 Hyperlipidemia, unspecified; Z79.899 Other long term (current) drug therapy
CPT/HCPCS: 36415; 80053; 85025

== ENCOUNTER → 2020-11-22 11:13 | Outpatient (CLI) | payer MEDICARE, SELFPAY ==
--- NOTE | 2020-11-22 11:13 | MRI_ITS ---
STUDY: MRI LEFT SHOULDER REASON FOR EXAM: Left shoulder pain for one year, no specific injury. TECHNIQUE: Standardized fat and water weighted pulse sequences were obtained in all 3 orthogonal planes. COMPARISON: Radiographs 10/31/2020 and MRI images 03/24/2017. FINDINGS: There is supraspinatus tendinosis (T2 coronal images 10-13) without discrete tendon tear. Normal infraspinatus tendon. Normal subscapularis tendon. Normal teres minor tendon. Normal supraspinatus muscle. Normal infraspinatus muscle. Normal subscapularis muscle. Normal teres minor muscle. There is glenohumeral arthrosis with small marginal osteophytes of the humeral head, chondral thinning and bone edema of the humeral head and glenoid (T2 coronal images 7-10). There is a glenohumeral joint effusion. There is cystic change of the greater tuberosity. There is nonvisualization of the intracapsular long biceps tendon, either secondary to tear or biceps tenotomy. There is degeneration of the labrum. Normal capsulo- ligamentous complex. There is acromioclavicular arthrosis without undersurface osteophytes (proton-density coronal image 14). There is interval development of a chronic fracture of the anterior acromion since the prior MRI study without osseous union and with adjacent cystic change (proton-density sagittal image 1). Status post subacromial decompression. There is no subacromial-subdeltoid bursal fluid. Normal deltoid muscle. Normal trapezius muscle. MRI/Upper Ext Joint Only(Routine) IMPRESSION: Supraspinatus tendinosis without demonstrated rotator cuff tear. Glenohumeral arthrosis with degeneration of the labrum. Nonvisualization of the intracapsular long biceps tendon, either secondary to tear or biceps tenotomy. Acromioclavicular arthrosis. Interval development of a chronic fracture of the anterior acromion with nonunion and cystic change adjacent to the fracture site. Glenohumeral joint effusion. Electronically Signed: Richard M. Guillen, MD at 14:12 EST Tel , Service support ,
== END ==
PROVIDERS: PCP Family Medicine; Visit Provider Orthopaedic Surgery
DX: M12.812 Other specific arthropathies, not elsewhere classified, left shoulder (principal)
CPT/HCPCS: 73221

== ENCOUNTER → 2020-12-20 12:39 | Outpatient (CLI) | payer MEDICARE, SELFPAY ==
[2020-12-20 15:08] LABS: Absolute Lymphocyte Count 1.83 X10^3/uL (0.83-4.51); Absolute Neutrophil Count 4.3 X10^3/uL (2.0-7.7); Basophil# 0.03 X10^3/uL; Basophil% 0.4 % (0-1); Eosinophil# 0.04 X10^3/uL; Eosinophils% 0.6 % (0-5); Hematocrit 45.1 % (37-47); Hemoglobin 14.4 g/dL (12.0-15.0); Lymphocyte # 1.83 X10^3/ul (4.0); Lymphocyte % 27.3 % (19-41); Mean Corp Hgb Conc 31.9 g/dL (32-36); Mean Corpuscular Hgb 31.2 pg (27.0-32.0); Mean Corpuscular Volume 97.8 fL (81-99); Mean Platelet Vol. 10.3 fl (6.2-12.0); Monocyte# 0.54 X10^3/uL; NRBC Flagged by Analyzer 0 % (0-5); Neutrophil # 4.25 X10^3/uL (2.7-7.7); Neutrophil % 63.4 % (47-70); Platelet Count 373 K/mm3 (150-450); RBC Distribution Width CV 13.3 % (11.6-14.6); RBC Distribution Width SD 47.6 fl (35.1-43.9); Red Blood Count 4.61 M/mm3 (4.2-5.4); White Blood Count 6.7 K/mm3 (4.4-11.0)
[2020-12-20 15:50] LABS: ALB/GLOB Ratio 0.9 RATIO (0.9-2.4); AST(SGOT) 24 U/L (15-37); Alanine Aminotransfer ALT/SGPT 36 U/L (13-56); Albumin, Serum 3.6 g/dL (3.2-5.0); Alkaline Phosphatase 68 U/L (45-117); Anion Gap 5 (5-15); BUN 19 mg/dL (7-18); BUN/Creat Ratio 23.7 RATIO (10-20); Calcium,Total 9.5 mg/dL (8.5-10.1); Chloride 103 mmol/L (98-107); EST Glomerular Filtration Rate 76 mL/min (>60); Est Glom Filt Rate - Afr Amer 92 mL/min (>60); Globulin 3.9 g/dL (2.2-4.2); Glucose 80 mg/dL (74-106); Potassium 3.7 mmol/L (3.5-5.1); Protein, Total 7.5 g/dL (6.4-8.2); Sodium Level 141 mmol/L (136-145)
== END ==
PROVIDERS: PCP Family Medicine; Referring Provider Internal Medicine Rheumatology; Visit Provider Internal Medicine Rheumatology
DX: M05.79 Rheumatoid arthritis with rheumatoid factor of multiple sites without organ or systems involvement (principal); M79.7 Fibromyalgia; M81.0 Age-related osteoporosis without current pathological fracture; M47.892 Other spondylosis, cervical region; M47.897 Other spondylosis, lumbosacral region; E03.9 Hypothyroidism, unspecified; E78.5 Hyperlipidemia, unspecified; Z79.899 Other long term (current) drug therapy
CPT/HCPCS: 36415; 80053; 85025

== ENCOUNTER → 2021-01-25 09:46 | Outpatient (CLI) | payer MEDICARE, SELFPAY ==
--- NOTE | 2021-01-25 09:48 | NM_ITS ---
Limited bone scan 3 phase INDICATION: Acromial fracture TECHNIQUE: 20.5 mCi of TECHNETIUM 99M labeled MDP injected intravenously with 3 phase imaging of the bilateral shoulders and thorax. COMPARISON: Cervical spine x-ray 01/15/2021, left shoulder x-ray 11/08/2020 FINDINGS: Bone flow imaging demonstrates expected injection related artifact from a right-sided venous injection. No abnormal accumulation of isotope activity on bone flow imaging. On soft tissue portion of the exam there is symmetric isotope with expected distribution of isotope activity. On delayed imaging, there is localized activity in the left shoulder, in the region of the glenohumeral joint. There is otherwise normal distribution of isotope in the visualized osseous structures. NM/Bone Scan Limited Area IMPRESSION: 1. Single phase (delayed) activity of the left shoulder could be degenerative or or healing fracture, per history. Electronically Signed: Sal Singleton MD ([place]) at 14:51 EDT , Service support ,
== END ==
PROVIDERS: PCP Family Medicine; Referring Provider Orthopaedic Surgery; Visit Provider Orthopaedic Surgery
DX: S42.125 Nondisplaced fracture of acromial process, left shoulder (principal); M19.012 Primary osteoarthritis, left shoulder; M75.82 Other shoulder lesions, left shoulder; Z87.312 Personal history of (healed) stress fracture
CPT/HCPCS: 78300

== ENCOUNTER → 2021-02-27 09:39 | Outpatient (CLI) | payer MEDICARE, SELFPAY ==
[2021-02-18 10:37] VITALS: BMI 27.4
--- NOTE | 2021-02-27 09:42 | RAD_ITS ---
STUDY: AIR-CONTRAST BARIUM ESOPHAGRAM REASON FOR EXAM: Female, 65 years old. DYSPHAGIA RADIATION DOSAGE (If Supplied By Facility): CTDIvol = ( ) mGy, DLP = ( ) mGycm. Individualized dose optimization techniques were used for this CT.? FLUOROSCOPY TIME (if supplied): ( 57 ) seconds, 6 films obtained TECHNIQUE: Air-contrast COMPARISON: None. FINDINGS: Swallowing was initiated normally. No nasopharyngeal reflux or aspiration. No Zenker''s diverticulum noted on the lateral view. There is abnormal peristaltic activity in the mid and distal esophagus with tertiary contractions/ there is a retrocardiac hiatal hernia. There was GE and intraesophageal reflux. A 13 mm barium pill passed through the esophagus without difficulty Stable appearance of vertebroplasty at T11 and L1 RAD/Esophagus Dual Contrast IMPRESSION: Prominent retrocardiac hiatal hernia with GE reflux Presbyesophagus with intraesophageal reflux Electronically Signed: Twan Taylor MD at 10:36 EDT , Service support ,
== END ==
PROVIDERS: PCP Family Medicine; Referring Provider Otolaryngology; Visit Provider Otolaryngology
DX: R13.10 Dysphagia, unspecified (principal)
CPT/HCPCS: 74221

== ENCOUNTER → 2021-04-19 10:37 | Outpatient (CLI) | payer MEDICARE, SELFPAY ==
[2021-02-18 10:37] VITALS: BMI 27.4
[2021-04-10 08:56] VITALS: BMI 29.0
--- NOTE | 2021-04-19 10:38 | BI_ITS ---
MAMMOGRAPHY - BILATERAL SCREENING REASON FOR EXAM: Female, 65 years old. Routine annual screening examination. PERTINENT HISTORY: Non-contributory. TECHNIQUE: Digital bilateral breast moriah (3D mammographic acquisition) in the CC and MLO projections. 2-D mediolateral oblique (MLO) and craniocaudad (CC) views of both breasts were obtained. CAD: Full Field Digital Mammography with Computer Added Detection was performed. COMPARISON: Comparison is made with prior study dated 10/25/2019 and 02/03/2018. FINDINGS: Breast Composition: The breasts are almost entirely fatty. There are no dominant masses or suspicious calcifications. No other significant abnormalities are identified. There has been no significant change since the prior study. BI/SCRN MAMM (CAD)W/MORIAH BILAT IMPRESSION: Stable bilateral screening mammogram. Yearly follow-up mammogram recommended. (A) ASSESSMENT CATEGORY: BIRADS Category 1: Negative. A letter regarding these results will be sent to the patient by the facility within 30 days. Approximately 10% of breast cancers are not detected by mammography. A normal mammogram should not delay biopsy of a clinically suspicious abnormality. [id number] Electronically Signed: Jere Emery MD at 11:25 EDT , Service support ,
== END ==
PROVIDERS: PCP Family Medicine; Referring Provider Family Medicine; Visit Provider Family Medicine
DX: Z12.31 Encounter for screening mammogram for malignant neoplasm of breast (principal)
CPT/HCPCS: 77063; 77067

== ENCOUNTER → 2021-06-27 10:26 | Outpatient (CLI) | payer MEDICARE, SELFPAY ==
--- NOTE | 2021-06-27 11:15 | RAD_ITS ---
STUDY: X-RAY - RIGHT ANKLE REASON FOR EXAM: Right ankle pain for 2 weeks, no specific injury. TECHNIQUE: 3 view(s) of the ankle. COMPARISON: None. FINDINGS: There is osteopenia. Normal visualized distal tibia and fibula. Normal medial and lateral malleoli. There is a tibiotalar joint effusion. Normal visualized talus and calcaneus. The visualized subtalar, talonavicular, calcaneocuboid and tarsal articulations are normal. The soft tissue structures are unremarkable. RAD/Ankle min 3 Views IMPRESSION: Tibiotalar joint effusion. No demonstrated fracture. Electronically Signed: Richard Guillen MD at 14:41 EDT Tel , Service support ,
== END ==
PROVIDERS: PCP Family Medicine; Referring Provider Family Medicine; Visit Provider Family Medicine
DX: M25.571 Pain in right ankle and joints of right foot (principal)
CPT/HCPCS: 73610

== ENCOUNTER 2022-01-09 06:56 | Outpatient (CLI) | payer MEDICARE, SELFPAY ==
--- NOTE | 2022-01-09 06:59 | CT_ITS ---
STUDY: CT LUMBAR SPINE WITHOUT CONTRAST REASON FOR EXAM: Female, 66 years old. SWELLING AT CATHETER SITE RADIATION DOSAGE (If Supplied By Facility): CTDIvol = ( 19.71 ) mGy, DLP = ( 777.37 ) mGycm TECHNIQUE: The patient was scanned in a multi detector CT scanner. High resolution transaxial imaging was performed. Images were obtained from T11 to lower sacrum. Sagittal and coronal images were reconstructed. Individualized dose optimization techniques were used for this CT. COMPARISON: Previous lumbar CT of . FINDINGS: Mild levo-scoliosis of the lower thoracic and lumbar lumbar spine. Old moderate central compression deformity of the T11 vertebral body; this level was not included on the prior scan. Previous vertebroplasty at the T12 and L1 levels, with a small amount of intravascular methacrylate again noted anterior and to the right of these 2 vertebral bodies. Stable mild/moderate compression deformity of the L1 vertebral body. Stable moderate compression deformity of the L2 superior endplate. Stable moderate central compression deformity of the L3 superior endplate. Stable moderate compression deformity of the L4 inferior endplate. No definite L5 compression fracture. Progressive disc space narrowing at the L4/5 and L5/S1 levels with endplate sclerosis and vacuum disc phenomenon. Extensive lumbar facet arthritis. No facet dislocation. Broad-based annular bulges at multiple levels. Moderate flattening the ventral aspect of the thecal sac at the L4/5 level due to broad-based annular bulging and posterior osteophytes. Narrowing of the inferior neural foramina bilaterally at multiple levels due to annular bulging. No abnormal epidural fluid collection identified on this nonenhanced scan. No paraspinal soft tissue swelling. The psoas muscles are symmetric. Visualized abdominal aorta is calcific and is normal in caliber. The visualized lower ribs are intact. No hydronephrosis is noted. Neuro stimulating device in place, inflamed within the left anterior pelvic subcutaneous fat, with the metallic lead extending posterior to L3 and L4. No abnormal fluid collection noted about the visualized portions of the stimulator or electrode. Streak artifact arises from fixation devices transfix an old fracture of the left iliac wing; with the old fracture extending into the left acetabulum. Multiple diverticula project from the visualized sigmoid colon without evidence for acute diverticulitis. No free fluid noted within the pelvis. The appendix is surgically absent. Ringlike opaque device in place about the gastric cardia. No hydronephrosis is noted. Visualized gallbladder is unremarkable. Abdominal aorta is mildly calcific and is normal in caliber. CONCLUSIONS: Stable findings of prior vertebroplasty at the T12 and L1 levels. Stable old lumbar wedge compression fractures. Old left pelvic fractures. Lower lumbar degenerative disc disease. Sigmoid diverticulosis without evidence for acute diverticulitis. No abnormal fluid collection or acute osseous abnormality identified. Electronically Signed: Kishore Griffith MD at 7:47 EDT , CT/Spine Lumbar without Contrast
== END 2022-01-09 23:59 | disposition home or self-care (01) ==
LOC: CT 06:58
PROVIDERS: PCP Family Medicine; Referring Provider Anesthesiology Pain Medicine; Visit Provider Anesthesiology Pain Medicine
DX: R60.0 Localized edema (principal)
CPT/HCPCS: 72131

== ENCOUNTER 2022-03-23 07:56 | Emergency (ER) | payer MEDICARE, SELFPAY ==
[2022-03-23 07:57] VITALS: BP 136/85; PULSE 68; RESP 17; TEMP 36; O2SAT 96; BMI 27.6
[2022-03-23] MEDS: 0.9% Normal Saline 1,000 ML 1000 ML IV (08:26)
[2022-03-23 08:28] LABS: Absolute Lymphocyte Count 1.86 X10^3/uL (0.83-4.51); Absolute Neutrophil Count 9.6 X10^3/uL (2.0-7.7); Basophil# 0.03 X10^3/uL; Basophil% 0.2 % (0-1); Eosinophil# 0.14 X10^3/uL; Eosinophils% 1.1 % (0-5); Hematocrit 43.2 % (37-47); Hemoglobin 14.3 g/dL (12.0-15.0); Lymphocyte # 1.86 X10^3/ul (0.83-4.51); Lymphocyte % 14.9 % (19-41); Mean Corp Hgb Conc 33.1 g/dL (32-36); Mean Corpuscular Hgb 30.6 pg (27.0-32.0); Mean Corpuscular Volume 92.3 fL (81-99); Mean Platelet Vol. 8.7 fl (6.2-12.0); Monocyte# 0.81 X10^3/uL; Monocyte% 6.5 % (0-10); NRBC Flagged by Analyzer 0 % (0-5); Neutrophil # 9.61 X10^3/uL (2.7-7.7); Neutrophil % 76.8 % (47-70); Platelet Count 253 K/mm3 (150-450); RBC Distribution Width CV 13.4 % (11.6-14.6); RBC Distribution Width SD 45.6 fl (35.1-43.9); Red Blood Count 4.68 M/mm3 (4.2-5.4); White Blood Count 12.5 K/mm3 (4.4-11.0)
[2022-03-23 08:44] LABS: ALB/GLOB Ratio 0.9 RATIO (0.9-2.4); AST(SGOT) 17 U/L (15-37); Alanine Aminotransfer ALT/SGPT 29 U/L (13-56); Albumin, Serum 3.2 g/dL (3.2-5.0); Alkaline Phosphatase 51 U/L (45-117); Anion Gap 5 (5-15); BUN 17 mg/dL (7-18); BUN/Creat Ratio 26.9 RATIO (10-20); Calcium,Total 8.9 mg/dL (8.5-10.1); Chloride 107 mmol/L (98-107); Creatinine, Serum 0.63 mg/dL (0.55-1.02); EST Glomerular Filtration Rate 100 mL/min (>60); Est Glom Filt Rate - Afr Amer 121 mL/min (>60); Estimated Creatinine Clearance 45.78 ml/min; Globulin 3.6 g/dL (2.2-4.2); Glucose 91 mg/dL (74-106); Potassium 3.6 mmol/L (3.5-5.1); Protein, Total 6.8 g/dL (6.4-8.2); Sodium Level 138 mmol/L (136-145)
[2022-03-23 08:50] LABS: Lactic Acid 0.7 mmol/L (0.4-1.9)
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
[2022-03-23 11:10] VITALS: BP 128/71; PULSE 74; RESP 16; O2SAT 98
== END 2022-03-23 11:11 | disposition home or self-care (01) ==
PROVIDERS: Emergency Provider Emergency Medicine; PCP Family Medicine; Visit Provider Emergency Medicine
DX: R19.7 Diarrhea, unspecified (principal); E86.0 Dehydration; Z87.891 Personal history of nicotine dependence; Z86.16 Personal history of COVID-19
CPT/HCPCS: 80053; 83605; 85025; 96360; 96361; 99283; J7030; A4216

== ENCOUNTER → 2022-04-24 | Outpatient (CLI) | payer MEDICARE, SELFPAY ==
--- NOTE | 2022-04-24 14:49 | RAD_ITS ---
EXAM: XR CHEST, 2 VIEWS CLINICAL INDICATION: shortness of breath TECHNIQUE: Frontal and lateral views of the chest. This report was created using [employer] report generation technology. COMPARISON: 12/06/2019 and 09/01/2014 FINDINGS: LUNGS AND PLEURAL SPACES: Unremarkable. No consolidation or edema. No pneumothorax. No effusion. HEART: Unremarkable. Cardiac silhouette not enlarged. MEDIASTINUM: Central airways and mediastinal contour are unremarkable. BONES/JOINTS: Stable vertebroplasties of the lower thoracic and upper lumbar spine. Multiple chronic compression deformities. SOFT TISSUES: Unremarkable. VASCULATURE: Multiple stable linear hyperdensities consistent with embolized cement material from previous vertebroplasty. No change going back to exams from at least 2013. RAD/Chest PA and Lateral IMPRESSION: No acute findings in the chest. Electronically Signed: Duran Rae MD at 6:41 EDT ,
[2022-04-24 15:57] LABS: Absolute Lymphocyte Count 2.21 X10^3/uL (0.83-4.51); Absolute Neutrophil Count 3.5 X10^3/uL (2.0-7.7); Basophil# 0.02 X10^3/uL; Basophil% 0.3 % (0-1); Eosinophil# 0.08 X10^3/uL; Eosinophils% 1.3 % (0-5); Hematocrit 42.4 % (37-47); Hemoglobin 13.7 g/dL (12.0-15.0); Lymphocyte # 2.21 X10^3/ul (0.83-4.51); Lymphocyte % 35.6 % (19-41); Mean Corp Hgb Conc 32.3 g/dL (32-36); Mean Platelet Vol. 9.7 fl (6.2-12.0); Monocyte# 0.44 X10^3/uL; Monocyte% 7.1 % (0-10); NRBC Flagged by Analyzer 0 % (0-5); Neutrophil # 3.45 X10^3/uL (2.7-7.7); Neutrophil % 55.5 % (47-70); Platelet Count 319 K/mm3 (150-450); RBC Distribution Width CV 13.6 % (11.6-14.6); RBC Distribution Width SD 46.3 fl (35.1-43.9); Red Blood Count 4.56 M/mm3 (4.2-5.4); White Blood Count 6.2 K/mm3 (4.4-11.0)
[2022-04-24 16:31] LABS: AST(SGOT) 34 U/L (15-37); Alanine Aminotransfer ALT/SGPT 40 U/L (13-56); Albumin, Serum 3.6 g/dL (3.2-5.0); Alkaline Phosphatase 47 U/L (45-117); Anion Gap 6 (5-15); BUN 12 mg/dL (7-18); BUN/Creat Ratio 15.8 RATIO (10-20); Calcium,Total 9.4 mg/dL (8.5-10.1); Chloride 108 mmol/L (98-107); Cholesterol 145 mg/dL (200); Creatinine, Serum 0.76 mg/dL (0.55-1.02); EST Glomerular Filtration Rate 81 mL/min (>60); Est Glom Filt Rate - Afr Amer 98 mL/min (>60); Globulin 3.5 g/dL (2.2-4.2); Glucose 89 mg/dL (74-106); High Density Lipoprotein 63 mg/dL; Potassium 3.3 mmol/L (3.5-5.1); Protein, Total 7.1 g/dL (6.4-8.2); Sodium Level 140 mmol/L (136-145); Thyroid Stim Hormone (TSH) 3.52 uIU/mL (0.358-3.74); Triglycerides 79 mg/dL; Very Low Density Lipoprotein 16 mg/dL (5-40)
== END | disposition home or self-care (01) ==
PROVIDERS: PCP Family Medicine; Referring Provider Internal Medicine Cardiovascular Disease; Visit Provider Internal Medicine Cardiovascular Disease
DX: R06.02 Shortness of breath (principal); R06.01 Orthopnea; R06.00 Dyspnea, unspecified; R53.83 Other fatigue; I10 Essential (primary) hypertension; I34.0 Nonrheumatic mitral (valve) insufficiency; R00.2 Palpitations
CPT/HCPCS: 36415; 71046; 80053; 80061; 84443; 85025

== ENCOUNTER → 2022-05-05 | Outpatient (CLI) | payer MEDICARE, SELFPAY ==
--- NOTE | 2022-05-07 11:41 | PFT ---
INTRODUCTION: The patient is a 66-year-old female that presents for pulmonary function studies secondary secondary to a diagnosis of asthma. Respiratory therapy reported good patient effort. Bronchodilators were used during testing. INTERPRETATION: Forced expiration spirometry demonstrates no evidence of a large airways obstructive ventilatory defect. There was no significant response to aerosolized bronchodilators. Spirograms are of good quality and plateau normally. Body plethysmography was performed and reveals lung volumes to be within normal limits. Diffusing capacity by single breath CO is also within normal limits. IMPRESSION: Grossly normal pulmonary function studies.
== END | disposition home or self-care (01) ==
LOC: PSN 10:40
PROVIDERS: PCP Family Medicine; Referring Provider Internal Medicine Cardiovascular Disease; Visit Provider Internal Medicine Cardiovascular Disease
DX: R53.83 Other fatigue (principal); I10 Essential (primary) hypertension; I34.0 Nonrheumatic mitral (valve) insufficiency; R00.2 Palpitations; R06.02 Shortness of breath; R06.00 Dyspnea, unspecified; R06.01 Orthopnea
CPT/HCPCS: 94060; 94726; 94729

== ENCOUNTER → 2022-05-14 | Outpatient (CLI) | payer MEDICARE, SELFPAY ==
--- NOTE | 2022-05-14 07:04 | ECHOD_ITS ---
Reason For Study: DYSPNEA/SOB Procedure This was a 2D Doppler, Color Flow transthoracic echocardiogram. The exam was of adequate technical quality. Exam performed in department. Left Ventricle Normal LV size. Apical false tendon noted. Left ventricular systolic function is normal. The estimated ejection fraction is 65 %. No evidence for diastolic dysfunction. No regional wall motion abnormalities noted. Right Ventricle Normal RV size. Normal systolic function. Atria Normal left atrium. Normal right atrium. No doppler evidence for ASD. Mitral Valve There is no mitral annular calcification. Normal mitral valve. Mild-Moderate (1-2+) mitral valve insufficiency. Tricuspid Valve Normal tricuspid valve. Trivial tricuspid valve insufficiency. Right ventricular systolic pressure estimated to be 26 mmHg. Aortic Valve Trisinus/trileaflet aortic valve. Normal aortic valve. Pulmonic Valve The pulmonic valve is not well visualized. Trivial pulmonic valve insufficiency. Great Vessels Normal sized aortic root. Pericardium/Pleural No pericardial effusion. MMode/2D Measurements & Calculations LVIDd: 4.1 cm IVSd: 0.93 cm Ao root diam: 3.0 cm LVIDs: 2.8 cm LVPWd: 0.87 cm RVDd: 3.1 cm FS: 31.3 % LAV(MOD-bp): 41.2 ml LVAd ap4: 26.4 cm2 SV(MOD-sp4): 47.5 ml LAV(MOD-bp) Indexed: 23.7 ml/m2 LVLd ap4: 7.7 cm LAV(MOD-sp2): 41.6 ml EDV(MOD-sp4): 73.5 ml LAV(MOD-sp4): 39.6 ml EDV(sp4-el): 76.6 ml LVAs ap4: 14.0 cm2 LVLs ap4: 6.3 cm ESV(MOD-sp4): 26.0 ml ESV(sp4-el): 26.4 ml EF(MOD-sp4): 64.7 % EF(sp4-el): 65.5 % SV(sp4-el): 50.2 ml LA A4 area: 15.7 cm2 LA dimension(2D): 3.3 cm RA A4 area: 15.1 cm2 Time Measurements MV dec time: 0.24 sec Doppler Measurements & Calculations MV E max samuel: 80.0 cm/sec Lat Peak E' Samuel: 9.2 cm/sec Med Peak E' Samuel: 8.1 cm/sec MV A max samuel: 84.6 cm/sec E/E' lat: 8.7 E/E' med: 9.9 MV E/A: 0.95 Ao V2 max: 127.0 cm/sec LV V1 max: 115.4 cm/sec PA V2 max: 97.7 cm/sec Ao max P.5 mmHg LV V1 max P.3 mmHg TR max samuel: 237.8 cm/sec TR max P.7 mmHg ECHO/Echo Complete Interpretation Summary Left ventricular systolic function is normal. The estimated ejection fraction is 65 %. Apical false tendon noted. Mild-Moderate (1-2+) mitral valve insufficiency. Trivial tricuspid valve insufficiency. Trivial pulmonic valve insufficiency. Right ventricular systolic pressure estimated to be 26 mmHg. No evidence for diastolic dysfunction. Ordering Physician: Augusto Clifford Referring Physician: DIOGENES ARAYA Performed By: Sarai Nguyen RDCS
--- NOTE | 2022-05-14 10:06 | STRESSREP ---
Stress Test Report Date: 05-14-2022 Procedure: Pharmacologic stress nuclear imaging study Indications: Shortness of breath/dyspnea on exertion; palpitations; hyperlipidemia; hypertension Consent: Per the patient Procedure: The patient underwent pharmacologic (Regadenoson 0.4mg ) evaluation with a peak heart rate of 90 beats per minute (58%predicted maximal heart rate) and a peak blood pressure of 120/88 mmHg. The baseline ECG demonstrated normal sinus rhythm. The peak pharmacologic ECG demonstrated no obvious ECG changes. There were no cardiac dysrhythmias pretest, during pharmacologic infusion, or recovery. There was no complaint of chest discomfort during pharmacologic infusion or recovery. The examination was discontinued secondary to completion of protocol. Impression: 1. Pharmacologic (Regadenoson) evaluation 2. Peak pharmacologic ECG with no obvious ECG changes. 3. There were no cardiac dysrhythmias pretest, during pharmacologic infusion, or recovery. 4. Nuclear images pending Myocardial perfusion imaging study: Technique: The patient was injected with 11.6 millicuries of technetium 99m Cardiolite and subsequently rest SPECT Cardiolite nuclear imaging was obtained in the horizontal long, vertical long, and short axis views. The patient underwent pharmacologic (Regadenoson) evaluation with a peak heart rate of 90 beats per minute (58% percent predicted maximal heart rate) and a peak blood pressure of 120/88 mmHg. The patient was injected with 33.1 millicuries of technetium 99m Cardiolite and subsequently stress SPECT Cardiolite nuclear imaging was obtained in the horizontal long, vertical long, and short axis views. A gated Cardiolite study at peak stress was not obtained. Interpretation: Rest and stress SPECT Cardiolite nuclear imaging status post realignment, normalization, and attenuation correction demonstrate relative uniform tracer uptake and myocardial perfusion appearing within normal limits. Impression: 1. Rest and stress SPECT Cardiolite nuclear imaging demonstrate relative uniform tracer uptake and myocardial perfusion appearing within normal limits. 2. The gated Cardiolite study at peak stress was not obtained. This note was generated with [employer] software. It may contain incorrect words, spelling, and punctuation that were not noted in checking the note before signing.
== END | disposition home or self-care (01) ==
LOC: CVS 07:02
PROVIDERS: PCP Family Medicine; Referring Provider Internal Medicine Cardiovascular Disease; Visit Provider Internal Medicine Cardiovascular Disease
DX: R06.02 Shortness of breath (principal); R00.2 Palpitations; E78.5 Hyperlipidemia, unspecified; I10 Essential (primary) hypertension; R53.83 Other fatigue; I34.0 Nonrheumatic mitral (valve) insufficiency; R06.01 Orthopnea
CPT/HCPCS: 78452; 93017; 93306; A9500; A4216; J2785

== ENCOUNTER → 2022-06-12 | Outpatient (CLI) | payer MEDICARE, SELFPAY ==
--- NOTE | 2022-06-12 09:40 | BI_ITS ---
MAMMOGRAPHY - BILATERAL SCREENING REASON FOR EXAM: Female, 66 years old. Routine annual screening examination. PERTINENT HISTORY: Non-contributory. History of prior bilateral breast reduction surgery. TECHNIQUE: Digital bilateral breast moriah (3D mammographic acquisition) in the CC and MLO projections. 2-D mediolateral oblique (MLO) and craniocaudad (CC) views of both breasts were obtained. CAD: Full Field Digital Mammography with Computer Added Detection was performed. COMPARISON: Comparison is made with prior study dated 04/19/2021 and 10/25/2019. FINDINGS: Breast Composition: The breasts are almost entirely fatty. There are no dominant masses or suspicious calcifications. Stable 8.2 mm well-defined fat containing nodule in the anterior upper slightly lateral aspect of the right breast. Stable benign-appearing bilateral axillary lymph nodes. No other significant abnormalities are identified. There has been no significant change since the prior study. BI/SCRN MAMM (CAD)W/MORIAH BILAT IMPRESSION: Stable bilateral screening mammogram. Yearly follow-up mammogram recommended. (A) ASSESSMENT CATEGORY: BIRADS Category 2: Benign. A letter regarding these results will be sent to the patient by the facility within 30 days. Approximately 10% of breast cancers are not detected by mammography. A normal mammogram should not delay biopsy of a clinically suspicious abnormality. [id number] Electronically Signed: Jere Emery MD at 10:21 EDT ,
== END | disposition home or self-care (01) ==
LOC: OPBI 09:38
PROVIDERS: PCP Family Medicine; Visit Provider Family Medicine
DX: Z12.31 Encounter for screening mammogram for malignant neoplasm of breast (principal)
CPT/HCPCS: 77063; 77067

== ENCOUNTER → 2022-07-11 | Outpatient (CLI) | payer MEDICARE, SELFPAY ==
[2022-07-11 12:58] LABS: Anion Gap 8 (5-15); BUN 19 mg/dL (7-18); BUN/Creat Ratio 24.1 RATIO (10-20); Calcium,Total 9.7 mg/dL (8.5-10.1); Chloride 101 mmol/L (98-107); Creatinine, Serum 0.79 mg/dL (0.55-1.02); EST Glomerular Filtration Rate 77 mL/min (>60); Est Glom Filt Rate - Afr Amer 94 mL/min (>60); Glucose 81 mg/dL (74-106); Potassium 3.9 mmol/L (3.5-5.1); Sodium Level 137 mmol/L (136-145)
== END | disposition home or self-care (01) ==
LOC: LAB 11:13
PROVIDERS: PCP Family Medicine; Referring Provider Internal Medicine Cardiovascular Disease; Visit Provider Internal Medicine Cardiovascular Disease
DX: I10 Essential (primary) hypertension (principal); I34.0 Nonrheumatic mitral (valve) insufficiency; E87.6 Hypokalemia
CPT/HCPCS: 36415; 80048

== ENCOUNTER → 2022-08-26 | Outpatient (CLI) | payer MEDICARE, SELFPAY ==
--- NOTE | 2022-08-26 11:14 | BD_ITS ---
STUDY: DUAL ENERGY X-RAY ABSORPTIOMETRY / DXA REASON FOR EXAM: Female, 66 years old. M810 TECHNIQUE: Bone Mineral Density (BMD) measurements of lumbar spine and right hip were obtained. COMPARISON: Comparison is made with prior study dated 10/25/2019. FINDINGS: Lumbar Spine (L1-L4): g/cm2 (1.047) / T-score (-0.3) / Z-score (1.7) Findings are suggestive of normal bone density with a low fracture risk. Right Femur Total: g/cm2 (0.649) / T-score (-2.4) / Z-score (-1.1) Right Femoral Neck: g/cm2 (0.474) / T-score (-3.4) / Z-score (-1.8) The T-Scores on the most recent prior examination were: Lumbar Spine (L1-L4): There has been improvement of bone density since the previous examination. Right Femur Total: which represents an improvement of 7.9%. BD/Dexa Bone Density Study IMPRESSION: The patient is considered osteoporotic as outlined below according to World Sean Organization (WHO) criteria with a high fracture risk. There has been improvement of bone density since the previous examination. Reference Information: The T-score is the number of standard deviations above or below the standard which is normal for young adults at their peak bone mineral density. The World Health Organization (WHO) interprets the T-scores as follows: Above -1 Normal bone density Between -1 and -2.5 Osteopenia Equal to / or below -2.5 Osteoporosis As a practical clinical guideline, osteopenia may be graded as follows: Mild -1 through -1.5 Moderate -1.6 through -2.0 Severe -2.1 through -2.4 The Z-score is the number of standard deviations above or below age-matched controls. A Z-score of less than -1.5 would be considered abnormal. References: 1. NIH Osteoporosis and Related Bone Diseases www osteo.org 2. International Society for Clinical Densitometry www iscd.org 3. National Osteoporosis Foundation www nof.org Electronically Signed: Jere Emery MD at 13:27 EST ,
== END | disposition home or self-care (01) ==
LOC: OPBD 10:50
PROVIDERS: PCP Family Medicine; Visit Provider Family Medicine
DX: M81.0 Age-related osteoporosis without current pathological fracture (principal)
CPT/HCPCS: 77080

== ENCOUNTER 2022-09-04 16:32 | Emergency (ER) | payer MEDICARE, SELFPAY ==
[2022-09-04 16:32] VITALS: BP 126/98; PULSE 87; RESP 16; TEMP 36.6; O2SAT 97; BMI 27.6
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
[2022-09-04] MEDS: Lidocaine/Epi/Tetracaine 50 ML 1 APPLIC TOPICAL (17:00)
[2022-09-04] MEDS: Diphth,Pertuss(Acell),Tet Vac 0.5 ML Vial IM (17:17)
[2022-09-04] MEDS: Lidocaine 1% (20 ml mdv) 20 ML Vial INFILT (17:19)
[2022-09-04 18:14] VITALS: BP 122/83; PULSE 72; RESP 16; TEMP 36.7; O2SAT 96
== END 2022-09-04 18:31 | disposition home or self-care (01) ==
PROVIDERS: Emergency Provider Emergency Medicine; PCP Family Medicine; Visit Provider Emergency Medicine
DX: S81.812A Laceration without foreign body, left lower leg, initial encounter (principal); Z86.16 Personal history of COVID-19; Z79.899 Other long term (current) drug therapy; X58.XXXA Exposure to other specified factors, initial encounter; Z87.891 Personal history of nicotine dependence; Z23 Encounter for immunization
CPT/HCPCS: 12002; 90471; 96360; 99284

== ENCOUNTER 2022-12-07 18:05 | Emergency (ER) | payer MEDICARE, SELFPAY ==
[2022-12-07 18:06] VITALS: BP 95/60; PULSE 94; RESP 16; TEMP 36.2; O2SAT 95; BMI 27.4
--- NOTE | 2022-12-07 18:16 | CT_ITS ---
INDICATION: Diffuse abdominal pain for 2 days, history of appendectomy and hysterectomy EXAMINATION: CT ABDOMEN AND PELVIS WITHOUT CONTRAST - CT Abdomen And Pelvis W/O Contrast Injection TECHNIQUE: Helically acquired images were obtained of the abdomen and pelvis without oral or IV contrast. A radiation dose optimization technique was used for this scan. IV Contrast dosage and agent: None. Oral contrast: None. COMPARISON: CT lumbar spine 01/09/2022 FINDINGS: LOWER CHEST: Bibasilar dependent and/or fibrotic changes. No cardiomegaly or pericardial effusion. LIVER: Simple cyst left lobe. No concerning focal mass. GALLBLADDER AND BILIARY TREE: No calcified gallstones. No gallbladder distension or wall edema. No intra- or extrahepatic biliary ductal dilation. PANCREAS: No focal cystic or solid mass. SPLEEN: Normal size without focal cystic or solid mass. ADRENAL GLANDS: No nodules. KIDNEYS AND URETERS: Normal renal size and position. No hydronephrosis. PERITONEUM: No ascites or free air. BOWEL: Prior appendectomy changes. No stomach or bowel distension. Diffuse diverticulosis of the sigmoid colon with wall thickening and adjacent inflammatory stranding. LYMPH NODES: No enlarged mesenteric or retroperitoneal lymph nodes. VESSELS: Aorta is non-dilated. URINARY BLADDER: Unremarkable. REPRODUCTIVE ORGANS: Uterus absent. ABDOMINAL WALL: Subcutaneous control unit over the left lower quadrant. BONES: Stable multilevel thoracolumbar compression fractures with kyphoplasty changes at T9, T12 and L1. Hardware from left pelvic surgical fixation. Severe degenerative changes left hip. CT/Abdomen/Pelvis without Cont IMPRESSION: Acute sigmoid diverticulitis. No pelvic abscess or evidence of perforation. Electronically Signed: Valente Ken MD at 20:19 EST ,
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
[2022-12-07 18:44] LABS: Absolute Lymphocyte Count 0.89 X10^3/uL (0.83-4.51); Absolute Neutrophil Count 12.5 X10^3/uL (2.0-7.7); Basophil# 0.02 X10^3/uL; Basophil% 0.1 % (0-1); Eosinophil# 0.03 X10^3/uL; Eosinophils% 0.2 % (0-5); Hematocrit 39.4 % (37-47); Hemoglobin 13.2 g/dL (12.0-15.0); Lymphocyte # 0.89 X10^3/ul (0.83-4.51); Lymphocyte % 6.4 % (19-41); Mean Corp Hgb Conc 33.5 g/dL (32-36); Mean Corpuscular Hgb 30.3 pg (27.0-32.0); Mean Corpuscular Volume 90.4 fL (81-99); Mean Platelet Vol. 9.1 fl (6.2-12.0); Monocyte% 3.6 % (0-10); NRBC Flagged by Analyzer 0 % (0-5); Neutrophil # 12.47 X10^3/uL (2.7-7.7); Neutrophil % 89.3 % (47-70); Platelet Count 317 K/mm3 (150-450); RBC Distribution Width CV 13.2 % (11.6-14.6); RBC Distribution Width SD 42.9 fl (35.1-43.9); Red Blood Count 4.36 M/mm3 (4.2-5.4)
[2022-12-07 18:45] VITALS: BP 83/57; PULSE 88; RESP 16; O2SAT 94
[2022-12-07] MEDS: 0.9% Normal Saline 1,000 ML 1000 ML IV (18:50)
[2022-12-07 19:00] LABS: ALB/GLOB Ratio 0.9 RATIO (0.9-2.4); AST(SGOT) 13 U/L (15-37); Alanine Aminotransfer ALT/SGPT 18 U/L (13-56); Albumin, Serum 3.2 g/dL (3.2-5.0); Alkaline Phosphatase 64 U/L (45-117); Anion Gap 11 (5-15); BUN 12 mg/dL (7-18); BUN/Creat Ratio 17.8 RATIO (10-20); Calcium,Total 9.4 mg/dL (8.5-10.1); Chloride 102 mmol/L (98-107); Creatinine, Serum 0.68 mg/dL (0.55-1.02); EST Glomerular Filtration Rate 92 mL/min (>60); Est Glom Filt Rate - Afr Amer 112 mL/min (>60); Estimated Creatinine Clearance 45.16 ml/min; Globulin 3.7 g/dL (2.2-4.2); Glucose 97 mg/dL (74-106); Lipase 41 U/L (73-393); Potassium 3.5 mmol/L (3.5-5.1); Protein, Total 6.9 g/dL (6.4-8.2); Sodium Level 136 mmol/L (136-145)
[2022-12-07 19:13] VITALS: BP 104/54; PULSE 85; RESP 22; O2SAT 94
[2022-12-07] MEDS: metroNIDAZOLE 500 MG Tablet PO (20:33)
[2022-12-07] MEDS: Cefdinir 300 MG Capsule PO (20:33)
[2022-12-07 20:59] VITALS: BP 112/70; PULSE 79; RESP 15; O2SAT 100
== END 2022-12-07 21:17 | disposition home or self-care (01) ==
PROVIDERS: Emergency Provider Emergency Medicine; PCP Family Medicine; Referring Provider Emergency Medicine; Visit Provider Emergency Medicine
DX: K57.32 Diverticulitis of large intestine without perforation or abscess without bleeding (principal); E86.0 Dehydration; Z86.16 Personal history of COVID-19; Z87.891 Personal history of nicotine dependence
CPT/HCPCS: 74176; 80053; 83690; 85025; 99284; J7030

== ENCOUNTER → 2023-05-06 | Outpatient (CLI) | payer MEDICARE, SELFPAY ==
--- NOTE | 2023-05-06 11:52 | NM_ITS ---
CLINICAL: 67-year-old female with history of suspected clinical gastroparesis. SEMI-SOLID PHASE 99m Tc SULFUR COLLOID GASTRIC EMPTYING STUDY COMPARISON: None available FINDINGS: The patient was administered 1.0 mCi of 99m Tc sulfur colloid mixed with oatmeal and consumed per os. Image acquisitions in the anterior-posterior projections were obtained for 60 minutes. There is prompt visualization of the stomach. There is no gastroesophageal reflux identified. First order kinetics are maintained throughout the duration of the acquisitions. The T ? linear fit was extrapolated to be 70.23 minutes, (Normal: 12-56 minutes). NM/Gastric Emptying Study IMPRESSION: 1. ABNORMAL 99m Tc sulfur colloid semi-solid phase (oatmeal) gastric emptying imaging examination. A. There is delayed semi-solid phase gastric emptying compared to normal controls with maintained first order kinetics throughout all components of the examination. (Jacquelin et al, J Nucl Med Tech 38: 186, 2010). Electronically Signed: Randall Cruz, at 9:44 EDT ,
== END | disposition home or self-care (01) ==
LOC: NM 11:52
PROVIDERS: PCP Family Medicine; Referring Provider Internal Medicine Gastroenterology; Visit Provider Internal Medicine Gastroenterology
DX: K21.9 Gastro-esophageal reflux disease without esophagitis (principal)
CPT/HCPCS: 78264; A9541

== ENCOUNTER 2023-07-29 05:27 | Day surgery (SDC) | payer MEDICARE, SELFPAY ==
[2023-07-29] MEDS: Lactated Ringers 1,000 ML 15 ML IV (05:57)
[2023-07-29 05:58] VITALS: BP 118/75; PULSE 68; RESP 17; TEMP 36.6; O2SAT 96; BMI 25.8
--- NOTE | 2023-07-29 06:30 | IMM_PTH ---
PATIENT: NIRU ROBERSON LOC: EN U#:[id number] AGE/SX: 67/F ROOM: RE07/29/[address]: Dr. Trav Hercules DO : 1955 BED: DIS: 07/29/2023 SPEC #: [id number] RECD: 07/29/23 13:39 STATUS: MELO REQ #: [id number] BRANDIN: 07/29/23 06:[address]: Trav Hercules DEPT: IMMUNOHISTOCHEMISTRY RECD BY: Cass Loera ENTERED: 07/29/23 13:39 SP TYPE: IMMUNO OTHR DR: Dr. Yadiel Stewart MD Tissues: B - Stomach, NOS Procedures: H Pylori (initial) PHYSICIAN & INSTITUTION [place] [address] SPECIMEN INFORMATION: Tissue Source: B - Antrum biopsy Clinical Info: GERD, loose stools, screening Specimen Number: [id number] CPT code: 34519 METHODOLOGY: Deparaffinized sections of prefer/formalin-fixed tissue or PAP/DQ stained slides are incubated with monoclonal/polyclonal antibodies/oligonucleotide probes. Localization is made via biotin free immunoperoxidase method. Appropriate controls are performed and reacted as expected. Results on target cell population are indicated in the following table: RESULTS: ANTIBODY / CLONE RESULT Block B H Pylori (polyclonal) negative These tests were developed and their performance characteristics determined by [facility]. They may not have been cleared or approved by the U.S. Food and Drug Administration. The FDA has determined that such clearance or approval is not necessary. The above immunohistochemical/dualISH markers are ordered and reviewed by the Pathologist. INTERPRETATION: B. Antrum, biopsy: Negative for Helicobacter pylori organisms. CHRISTOFER:petra 07/30/2023
--- NOTE | 2023-07-29 06:30 | EGD_PTH ---
PATIENT: NIRU ROBERSON LOC: EN U#:[id number] AGE/SX: 67/F ROOM: RE07/29/[address]: Dr. Trav Hercules DO : 1955 BED: DIS: 07/29/2023 SPEC #: [id number] RECD: 07/29/23 11:14 STATUS: MELO ILIANA #: [id number] BRANDIN: 07/29/23 06:[address]: Trav Hercules DEPT: SURGICAL PATHOLOGY RECD BY: Kika Song ENTERED: 07/29/23 11:39 SP TYPE: EGD BIOPSY OT DR: Dr. Yadiel Stewart MD Tissues: A - Duodenum, NOS B - Gastric mucous membrane C - Esophagus, NOS D - Ascending colon E - Sigmoid colon biopsy Procedures: Special Stain Group II Surgery Specimen Level IV Alcian Blue/PAS (control) HEADER OPERATION: Colonoscopy with biopsy, EGD with biopsy PRE-OP DIAGNOSIS: GERD, loose stools, screening TISSUE SUBMITTED: A - Duodenum biopsy, B - Antrum biopsy, C - Distal esophagus biopsy, D - Ascending colon biopsy, E - Sigmoid biopsy MICROSCOPIC DIAGNOSIS A. Duodenum, biopsy: Fragments of duodenal mucosa with Warren gland hyperplasia. B. Antrum, biopsy: Mild gastritis. See microscopic description and comment. C. Distal esophagus, biopsy: Fragments of gastroesophageal mucosa with moderate chronic inflammation and mild acute inflammation. Intestinal metaplasia (goblet cell metaplasia) not identified. See comment. D. Ascending colon, biopsy: Fragments of colonic mucosa, no pathologic diagnosis. E. Sigmoid colon, biopsy: Fragments of colonic mucosa, no pathologic diagnosis. SJ:petra 07/30/2023 COMMENT B. The results of immunohistochemistry for Helicobacter pylori will be reported separately ([id number]). C. The specimen predominantly consists of gastric mucosa. Alcian blue/PAS stain with matched control is used in the evaluation of the specimen. MICROSCOPIC DESCRIPTION Slides are reviewed. B. The specimen shows fragments of gastric mucosa with chronic inflammatory cell infiltrates in the lamina propria consisting of lymphocytes and plasma cells, consistent with mild chronic gastritis. GROSS DESCRIPTION A - Received in fixative is one container labeled with the patient's name and designated duodenum biopsy. The specimen consists of multiple irregular fragments of light jordan soft tissue that in aggregate measure 1.0 x 0.3 x 0.1 cm. The specimen is totally submitted in one cassette. B - Received in fixative is one container labeled with the patient's name and designated antrum biopsy. The specimen consists of multiple irregular fragments of light jordan soft tissue that in aggregate measure 0.6 x 0.3 x 0.1 cm. The specimen is totally submitted in one cassette. C - Received in fixative is one container labeled with the patient's name and designated distal esophagus biopsy. The specimen consists of multiple irregular fragments of light jordan soft tissue that in aggregate measure 1.2 x 0.4 x 0.1 cm. The specimen is totally submitted in one cassette. D - Received in fixative is one container labeled with the patient's name and designated ascending colon biopsy. The specimen consists of two irregular fragments of light jordan soft tissue that in aggregate measure 0.6 x 0.3 x 0.1 cm. The specimen is totally submitted in one cassette. E - Received in fixative is one container labeled with the patient's name and designated sigmoid biopsy. The specimen consists of multiple irregular fragments of light jordan soft tissue that in aggregate measure 1.0 x 0.2 x 0.1 cm. The specimen is totally submitted in one cassette. / SJ:rg 07/29/2023 TC:3 CPT: 56390 x5, 78153
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
--- NOTE | 2023-07-29 07:10 | OP.EGD_ITS ---
Patient Name: Jocy Marquez Procedure Date: 07/29/2023 6:24 AM Date of : 1955 Age: 67 Procedure: Upper GI endoscopy Indications: Epigastric abdominal pain, Heartburn, Suspected peptic ulcer Providers: Trav Hercules DO Medicines: Monitored Anesthesia Care Patient Profile: This is a 67 year old female. Refer to note in patient chart for documentation of history and physical. Patient has symptoms of chronic abdominal cramping, chronic abdominal distention and chronic nausea. Complications: No immediate complications. Procedure: Pre-Anesthesia Assessment: - Prior to the procedure, a History and Physical was performed, and patient medications and allergies were reviewed. The patient is competent. The risks and benefits of the procedure and the sedation options and risks were discussed with the patient. All questions were answered and informed consent was obtained. Patient identification and proposed procedure were verified by the physician in the pre-procedure area. Mental Status Examination: alert and oriented. Airway Examination: normal oropharyngeal airway and neck mobility. CV Examination: normal. Prophylactic Antibiotics: The patient does not require prophylactic antibiotics. Prior Anticoagulants: The patient has taken no anticoagulant or antiplatelet agents. ASA Grade Assessment: II - A patient with mild systemic disease. After reviewing the risks and benefits, the patient was deemed in satisfactory condition to undergo the procedure. The anesthesia plan was to use monitored anesthesia care (MAC). Immediately prior to administration of medications, the patient was re-assessed for adequacy to receive sedatives. The heart rate, respiratory rate, oxygen saturations, blood pressure, adequacy of pulmonary ventilation, and response to care were monitored throughout the procedure. The physical status of the patient was re-assessed after the procedure. After obtaining informed consent, the endoscope was passed under direct vision. Throughout the procedure, the patient's blood pressure, pulse, and oxygen saturations were monitored continuously. The Colonoscope was introduced through the mouth, and advanced to the second part of duodenum. The upper GI endoscopy was accomplished without difficulty. The patient tolerated the procedure well. Scope In: 6:40:48 AM Scope Out: 6:45:06 AM Total Procedure Duration Time 0 hours 4 minutes 18 seconds Findings: The Z-line was irregular and was found 38 cm from the incisors. Biopsies were taken with a cold forceps for histology. Verification of patient identification for the specimen was done. Estimated blood loss was minimal. Patchy mildly erythematous mucosa without bleeding was found in the gastric antrum. Biopsies were taken with a cold forceps for histology. Verification of patient identification for the specimen was done. Estimated blood loss was minimal. Biopsies were taken with a cold forceps for Helicobacter pylori testing. Verification of patient identification for the specimen was done. Estimated blood loss was minimal. The second portion of the duodenum was normal. Biopsies were taken with a cold forceps for histology. Verification of patient identification for the specimen was done. Estimated blood loss was minimal. Impression: - Z-line irregular, 38 cm from the incisors. Biopsied. - Erythematous mucosa in the antrum. Biopsied. - Normal second portion of the duodenum. Biopsied. Recommendation: - Discharge patient to home. - Resume previous diet. - Continue present medications. - Await pathology results. Procedure Code(s): --- Professional --- 60299, Esophagogastroduodenoscopy, flexible, transoral; with biopsy, single or multiple CPT copyright 2021 [employer]. All rights reserved. The codes documented in this report are preliminary and upon switch maker review may be revised to meet current compliance requirements. Trav Hercules DO 07/29/2023 7:09:55 AM This report has been signed electronically. Number of Addenda: 0 Note Initiated On: 07/29/2023 6:24 AM
--- NOTE | 2023-07-29 07:11 | OP.CCLET_ITS ---
07/29/2023 Yadiel Stewart Re : Upper GI endoscopy procedure for Jocy Marquez Dear Pat This procedure was performed on Saturday, July 29, 2023. My impressions and recommendations are as follows: Impressions : - Z-line irregular, 38 cm from the incisors. Biopsied. - Erythematous mucosa in the antrum. Biopsied. - Normal second portion of the duodenum. Biopsied. Recommendations : - Discharge patient to home. - Resume previous diet. - Continue present medications. - Await pathology results. My findings are described in the full procedure note, which is enclosed. If I can be of further assistance, please feel free to contact me at . Sincerely, Trav Hercules, 07/29/2023 7:09:55 AM This report has been signed electronically.
[2023-07-29 07:12] VITALS: BP 118/75; BP 98/59; PULSE 70; RESP 18; TEMP 36.1; O2SAT 95
[2023-07-29 07:14] VITALS: BP 118/75; BP 123/64; PULSE 69; RESP 18; O2SAT 95
--- NOTE | 2023-07-29 07:14 | OP.COLON_ITS ---
Patient Name: Jocy Marquez Procedure Date: 07/29/2023 6:45 AM Date of : 1955 Age: 67 Procedure: Colonoscopy Indications: Screening for colorectal malignant neoplasm Providers: Trav Hercules DO Medicines: Monitored Anesthesia Care Patient Profile: This is a 67 year old female. Refer to note in patient chart for documentation of history and physical. Patient has symptoms of chronic abdominal cramping, chronic abdominal distention and chronic nausea. Last Colonoscopy: 10 years ago. Complications: No immediate complications. Procedure: Pre-Anesthesia Assessment: - Prior to the procedure, a History and Physical was performed, and patient medications and allergies were reviewed. The patient is competent. The risks and benefits of the procedure and the sedation options and risks were discussed with the patient. All questions were answered and informed consent was obtained. Patient identification and proposed procedure were verified by the physician in the pre-procedure area. Mental Status Examination: alert and oriented. Airway Examination: normal oropharyngeal airway and neck mobility. CV Examination: normal. Prophylactic Antibiotics: The patient does not require prophylactic antibiotics. Prior Anticoagulants: The patient has taken no anticoagulant or antiplatelet agents. ASA Grade Assessment: II - A patient with mild systemic disease. After reviewing the risks and benefits, the patient was deemed in satisfactory condition to undergo the procedure. The anesthesia plan was to use monitored anesthesia care (MAC). Immediately prior to administration of medications, the patient was re-assessed for adequacy to receive sedatives. The heart rate, respiratory rate, oxygen saturations, blood pressure, adequacy of pulmonary ventilation, and response to care were monitored throughout the procedure. The physical status of the patient was re-assessed after the procedure. After I obtained informed consent, the scope was passed under direct vision. Throughout the procedure, the patient's blood pressure, pulse, and oxygen saturations were monitored continuously. The Colonoscope was introduced through the anus and advanced to the cecum, identified by appendiceal orifice and ileocecal valve. The colonoscopy was performed without difficulty. The patient tolerated the procedure well. The quality of the bowel preparation was adequate. The ileocecal valve, appendiceal orifice, and rectum were photographed. Scope In: 6:47:05 AM Scope Withdrawal Time 0 hours 9 minutes 37 seconds Scope Out: 7:02:34 AM Total Procedure Duration Time 0 hours 15 minutes 29 seconds Findings: The perianal and digital rectal examinations were normal. Multiple large-mouthed diverticula were found in the recto-sigmoid colon, sigmoid colon and descending colon. An area of mildly congested mucosa was found in the sigmoid colon and in the ascending colon. Biopsies were taken with a cold forceps for histology. Verification of patient identification for the specimen was done. Estimated blood loss was minimal. Stool was found in the recto-sigmoid colon, in the sigmoid colon and in the cecum. Impression: - Diverticulosis in the recto-sigmoid colon, in the sigmoid colon and in the descending colon. - Congested mucosa in the sigmoid colon and in the ascending colon. Biopsied. - Stool in the recto-sigmoid colon, in the sigmoid colon and in the cecum. Recommendation: - Discharge patient to home. - Resume previous diet. - Continue present medications. - Await pathology results. - Repeat colonoscopy for surveillance based on pathology results. Repeat colonoscopy in 5 years. Procedure Code(s): --- Professional --- 73100, Colonoscopy, flexible; with biopsy, single or multiple CPT copyright 2021 [employer]. All rights reserved. The codes documented in this report are preliminary and upon supervisor metal placing review may be revised to meet current compliance requirements. Trav Hercules DO 07/29/2023 7:13:51 AM This report has been signed electronically. Number of Addenda: 0 Note Initiated On: 07/29/2023 6:45 AM
--- NOTE | 2023-07-29 07:14 | OP.CCLET_ITS ---
07/29/2023 Yadiel Stewart Re : Colonoscopy procedure for Jocy Marquez Dear Pat This procedure was performed on Saturday, July 29, 2023. My impressions and recommendations are as follows: Impressions : - Diverticulosis in the recto-sigmoid colon, in the sigmoid colon and in the descending colon. - Congested mucosa in the sigmoid colon and in the ascending colon. Biopsied. - Stool in the recto-sigmoid colon, in the sigmoid colon and in the cecum. Recommendations : - Discharge patient to home. - Resume previous diet. - Continue present medications. - Await pathology results. - Repeat colonoscopy for surveillance based on pathology results. Repeat colonoscopy in 5 years. My findings are described in the full procedure note, which is enclosed. If I can be of further assistance, please feel free to contact me at . Sincerely, Trav Hercules, 07/29/2023 7:13:51 AM This report has been signed electronically.
[2023-07-29 07:20] VITALS: BP 111/69; BP 118/75; PULSE 74; RESP 18; O2SAT 94
[2023-07-29 07:23] VITALS: BP 113/70; BP 118/75; PULSE 70; RESP 18; TEMP 36.3; O2SAT 96
[2023-07-29 07:39] VITALS: BP 118/75
== END 2023-07-29 07:54 | disposition home or self-care (01) ==
LOC: EN 05:29 → AC 05:29
PROVIDERS: PCP Family Medicine; Referring Provider Family Medicine; Visit Provider Internal Medicine Gastroenterology
PROC: 0DJD8ZZ Inspection of Lower Intestinal Tract, Via Natural or Artificial Opening Endoscopic (ICD-10-PCS; CPT 45378; principal; 2023-07-29 06:25)
DX: K29.70 Gastritis, unspecified, without bleeding (principal); M06.9 Rheumatoid arthritis, unspecified; K31.89 Other diseases of stomach and duodenum; K21.00 Gastro-esophageal reflux disease with esophagitis, without bleeding; K57.30 Diverticulosis of large intestine without perforation or abscess without bleeding; K63.89 Other specified diseases of intestine; I10 Essential (primary) hypertension; G47.33 Obstructive sleep apnea (adult) (pediatric); F41.9 Anxiety disorder, unspecified; J45.909 Unspecified asthma, uncomplicated; F32.A Depression, unspecified; G25.81 Restless legs syndrome; E07.9 Disorder of thyroid, unspecified; Z79.899 Other long term (current) drug therapy; Z87.891 Personal history of nicotine dependence; Z86.16 Personal history of COVID-19
CPT/HCPCS: 43239; 45380; 88305; 88313; 88342; J7120; J2405

== ENCOUNTER 2023-08-21 07:26 | Day surgery (SDC) | payer MEDICARE, SELFPAY ==
--- NOTE | 2023-08-21 | FORE_PTH ---
PATIENT: NIRU ROBERSON [place] [facility] [place][id number] AGE/SX: 67/F ROOM: RE08/21/[address]: Dr. Doug Hernandez MD : 1955 BED: DIS: 08/21/2023 SPEC #: [id number] RECD: 08/21/23 13:48 STATUS: MELO RECathy #: [id number] BRANDIN: 08/21/23 00:[address]: Doug Hernandze DEPT: SURGICAL PATHOLOGY RECD BY: Dipesh Brown ENTERED: 08/21/23 13:49 SP TYPE: FOREIGN B MARY ANN DR: Dr. Yadiel Stewart MD Tissues: FOREIGN BODY Procedures: Surgery Specimen Level I HEADER OPERATION: Removal of pain pump and catheter PRE-OP DIAGNOSIS: Chronic pain TISSUE SUBMITTED: Pain pump and tubing MICROSCOPIC DIAGNOSIS Pain pump and tubing, removal: Unremarkable pump and tubing (gross diagnosis only). AM:petra 08/25/2023 MICROSCOPIC DESCRIPTION Slides are reviewed. GROSS DESCRIPTION Received labeled with the patient's name and designated pain pump and catheter. The specimen consists of a part metallic and part plastic pump measuring 8.0 x 8.0 x 2.5 cm. Inscription on the pump shows Prometra II programmable pump and also S/N [id number] [facility]. The attached white catheter measures 42.0 cm in length and 0.1 cm in diameter and also one detached piece of catheter is also present measuring 55.0 cm in length and 0.1 cm in diameter. The specimen is for gross identification. / CHRISTOFER:petra 08/21/2023 CPT: 18616
[2023-08-21 07:52] VITALS: BP 124/70; PULSE 78; RESP 16; TEMP 36.1; O2SAT 98; BMI 25.6
[2023-08-21] MEDS: Lactated Ringers 1,000 ML 15 ML IV (07:56)
--- NOTE | 2023-08-21 08:00 | RAD_ITS ---
PROCEDURE: Removal of pain pump. DATE OF EXAMINATION: August 21, 2023. INDICATION: Female, 67 years old. Removal of pain pump. FLUOROSCOPY TIME (if supplied): (5.3 seconds) minutes/seconds. 1.41 mGy RAD/Spine 1 View Any Level IMPRESSION: Fluoroscopic services provided for removal of the pain pump. Electronically Signed: Jere Emery MD at 11:18 EST ,
[2023-08-21] MEDS: Cefazolin 2 GM in 0.9% Normal Saline (100mL Bag) 100 ML IV (09:50)
[2023-08-21] MEDS: Lidocaine 1% /Epi 1:100 (50ml) 50 ML VIAL (10:57)
[2023-08-21 11:27] VITALS: BP 121/80; BP 124/70; PULSE 79; RESP 18; TEMP 36.2; O2SAT 94
[2023-08-21 11:30] VITALS: BP 122/63; BP 124/70; PULSE 80; RESP 18; O2SAT 93
[2023-08-21 11:45] VITALS: BP 124/70; BP 125/65; PULSE 79; RESP 16; O2SAT 93
[2023-08-21 11:55] VITALS: BP 122/75; BP 124/70; PULSE 74; RESP 16; TEMP 36.6; O2SAT 98
[2023-08-21 12:11] VITALS: BP 124/70
== END 2023-08-21 12:40 | disposition home or self-care (01) ==
LOC: SDC 07:28 → AC 07:29
PROVIDERS: PCP Family Medicine; Referring Provider Anesthesiology Pain Medicine; Visit Provider Anesthesiology Pain Medicine
PROC: (CPT 62365; principal; 2023-08-21 08:45)
DX: G89.4 Chronic pain syndrome (principal); M06.9 Rheumatoid arthritis, unspecified; I10 Essential (primary) hypertension; G47.33 Obstructive sleep apnea (adult) (pediatric); F41.9 Anxiety disorder, unspecified; J45.909 Unspecified asthma, uncomplicated; F32.A Depression, unspecified; G25.81 Restless legs syndrome; Z79.82 Long term (current) use of aspirin; Z79.899 Other long term (current) drug therapy; Z87.891 Personal history of nicotine dependence; Z86.16 Personal history of COVID-19
CPT/HCPCS: 62365; 01991; 72020; 76000; 88300; J7120; J2405

== ENCOUNTER → 2023-09-22 | Outpatient (CLI) | payer MEDICARE, SELFPAY ==
[2023-09-22 16:57] LABS: Amylase 62 U/L (25-115); Lipase 23 U/L (13-75)
== END | disposition home or self-care (01) ==
LOC: LAB 16:06
PROVIDERS: PCP Family Medicine; Referring Provider Internal Medicine Gastroenterology; Visit Provider Internal Medicine Gastroenterology
DX: R14.0 Abdominal distension (gaseous) (principal); R10.9 Unspecified abdominal pain; R15.9 Full incontinence of feces
CPT/HCPCS: 36415; 82150; 83690

== ENCOUNTER → 2023-09-23 | Outpatient (CLI) | payer MEDICARE, SELFPAY ==
[2023-09-30 22:06] LABS: Pancreatic Elastase, Fecal 301 (>200)
[2023-10-02 19:07] LABS: Calprotectin, Stool 23 ug/g (0-120); Fats, Neutral Normal (.); Fats, Total Normal (.)
== END | disposition home or self-care (01) ==
LOC: LABSPEC 14:00
PROVIDERS: PCP Family Medicine; Referring Provider Internal Medicine Gastroenterology; Visit Provider Internal Medicine Gastroenterology
DX: R14.0 Abdominal distension (gaseous) (principal); R10.9 Unspecified abdominal pain; R19.5 Other fecal abnormalities; K58.9 Irritable bowel syndrome, unspecified
CPT/HCPCS: 82274; 82653; 82705; 83630; 83993; 87177; 87209; 87329

== ENCOUNTER → 2023-11-16 | Outpatient (CLI) | payer MEDICARE, SELFPAY ==
--- NOTE | 2023-11-16 07:33 | MRI_ITS ---
STUDY: MRI CERVICAL SPINE WITHOUT CONTRAST REASON FOR EXAM: Female, 68 years old. Serious arm pain and cervical pain for years/radiculopathy. TECHNIQUE: Standardized fat and water weighted pulse sequences were obtained in the sagittal and axial planes. COMPARISON: Cervical spine radiographs 01/15/2021. FINDINGS: Normal foramen magnum and brainstem-cervical cord junction. Normal craniovertebral junction. Normal anterior atlantoaxial articulation. Normal odontoid process. Mild straightening of the upper C-spine curvature. Normal vertebral bodies. Metallic signal distortion artifacts in the posterior spinous processes of C2 down to C4. C2-3: Normal endplates. Normal disc height, signal and morphology. Normal central canal and intervertebral neural foramina. Postop fusion of the facet joints. C3-4: Normal endplates. Normal disc height, signal and morphology. Normal central canal and intervertebral neural foramina. Postop fusion of the facet joints. C4-5: Metallic plate with transfixing screws causing signal distortion artifacts. Mild ventral extradural defect due to posterior bulging annulus. Normal central canal and right intervertebral neural foramen. Mild stenosis of the left intervertebral neural foramen. C5-6: Anterior fusion of the vertebral bodies. Metallic plate with transfixing screws causing some signal distortion artifacts. Postsurgical absence of the spinous processes at. Normal central canal and intervertebral neural foramina. C6-7: Metallic plate and transfixing screws causing signal distortion artifacts at C6. C7 superior endplate. Mild disc space height narrowing. Mild ventral extradural defect due to bone spur. Normal central canal. Mild stenosis of the intervertebral neural foramina due to osteophytes arising from the uncovertebral joints. C7-T1: Normal endplates. Normal disc height, signal and morphology. Normal central canal and intervertebral neural foramina. T1-T2: (Sagittal only). Normal endplates. Normal disc height, signal and morphology. Normal central canal and intervertebral neural foramina. T2-T3: (Sagittal only). Normal T2 inferior endplate. Mild anterior wedging of T3 superior endplate is from remote injury. This accounts for the increased anterior disc space height. No ventral extradural defect. Normal central canal and intervertebral neural foramina. T3-T4: (Sagittal only). Normal endplates. Normal disc height, signal and morphology. Normal central canal and intervertebral neural foramina. Normal cervical cord. Normal upper thoracic spinal cord. Midline T2 high signal intensity in the central pontine tegmentum may represent old lacunar infarct. Normal visualized soft tissue structures. MRI/Spine Cervical (Routine) IMPRESSION: 1. C4-C5 posterior bulging annulus and mild stenosis of left intervertebral neural foramen due to osteophyte arising from the left uncovertebral joint. 2. Mild stenosis of the C6-C7 intervertebral neural foramina due to osteophytes arising from the uncovertebral joints. 3. Mild old anterior wedge compression fracture of the T3 superior endplate. 4. No MRI evidence of cervical extruded disc fragment or disc protrusion. 5. Normal cervical spinal cord. Electronically Signed: Chinmay Devine MD at 10:15 EST ,
== END | disposition home or self-care (01) ==
LOC: MRI 13:24
PROVIDERS: PCP Internal Medicine; Referring Provider Anesthesiology Pain Medicine; Visit Provider Anesthesiology Pain Medicine
DX: M54.12 Radiculopathy, cervical region (principal)
CPT/HCPCS: 72141

== ENCOUNTER → 2023-12-02 | Outpatient (CLI) | payer MEDICARE, SELFPAY ==
--- NOTE | 2023-12-02 13:20 | RAD_ITS ---
INDICATION: wrist pain EXAMINATION/TECHNIQUE: X-RAY - RIGHT XR Wrist Min 3 Views 3 VIEWS COMPARISON: No relevant prior comparison study available FINDINGS: SOFT TISSUES: No soft tissue swelling or gas. No radiopaque foreign body. Chondrocalcinosis of the TFCC. BONES/JOINTS: No acute fracture or subluxation.. The carpal rows are well aligned. Moderate to severe degenerative change of the first carpometacarpal joint with narrowing and sclerosis. Osteophytes present. RAD/Wrist min 3 Views IMPRESSION: No fracture or malalignment. Moderate to severe degenerative change at the first carpometacarpal joint. Electronically Signed: Duarte Salcido MD at 20:07 EST ,
--- NOTE | 2023-12-02 13:20 | RAD_ITS ---
STUDY: X-RAY - No acute fracture. Chronic changes at the acromioclavicular joint with degenerative change. CLAVICLE REASON FOR EXAM: Female, 68 years old. clavicle pain/arm pain TECHNIQUE: 2 view(s) of the clavicle. COMPARISON: Prior study dated: Chest CT 08/08/2020 FINDINGS: There is no fracture. The acromioclavicular joint is well aligned with moderate hypertrophic degenerative change. Corticated fragmentation at the acromioclavicular joint is chronic. The sternoclavicular joint is grossly aligned. Cervical fusion hardware. Normal visualized pulmonary apex. RAD/Clavicle IMPRESSION: No acute fracture. Chronic changes at the acromioclavicular joint with degenerative change. Electronically Signed: Duarte Salcido MD at 20:16 EST ,
[2023-12-02 15:26] LABS: CPK Total, Creatine Kinase 50 U/L (26-192)
[2023-12-02 15:27] LABS: Erythrocyte Sedimentation Rate 46 mm/hr (0-30)
== END | disposition home or self-care (01) ==
PROVIDERS: PCP Internal Medicine; Referring Provider Internal Medicine; Visit Provider Internal Medicine
DX: M79.601 Pain in right arm (principal)
CPT/HCPCS: 36415; 73000; 73110; 82550; 85652; 86140

== ENCOUNTER → 2023-12-14 | Outpatient (CLI) | payer MEDICARE, SELFPAY ==
--- NOTE | 2023-12-14 13:22 | BI_ITS ---
MAMMOGRAPHY - BILATERAL SCREENING 3-D TOMOSYNTHESIS REASON FOR EXAM: Female, 68 years old. screening PERTINENT HISTORY: No significant family history. TECHNIQUE: 2-D mammograms and 3-D Tomosynthesis of the breast (s) were performed. CAD was performed. COMPARISON: 06/12/2022 FINDINGS: The breast composition is composed of scattered fibroglandular density. Scattered benign calcifications are seen. No dense spiculated masses or suspicious microcalcifications are identified. No architectural distortion is identified. There is no skin thickening or retraction. There has been no significant change since the prior study. BI/SCRN MAMM (CAD)W/MORIAH BILAT IMPRESSION: No mammographic signs of malignancy. Routine yearly mammograms recommended. ASSESSMENT CATEGORY: BIRADS Category 1: Negative. A letter regarding these results will be sent to the patient by the facility within 30 days. FOLLOW UP RECOMMENDATION: Yearly follow up mammogram recommended. (A) Approximately 10% of breast cancers are not detected by mammography. A normal mammogram should not delay biopsy of a clinically suspicious abnormality. Electronically Signed: Randall Oglesby MD at 15:40 EST ,
[2023-12-14 13:43] LABS: Amphetamine Urine VISTA NEGATIVE (<1000 ng/mL); Barbiturate Urine VISTA NEGATIVE (< 200 ng/mL); Benzodiazepine Urine VISTA NEGATIVE (< 200 ng/mL); Cocaine Urine VISTA NEGATIVE (< 300 ng/mL); Ecstacy Urine VISTA NEGATIVE (< 500 ng/mL); Methadone Urine VISTA NEGATIVE (< 300 ng/mL); PCP Urine VISTA NEGATIVE (< 25 ng/mL); THC Urine VISTA NEGATIVE (< 50 ng/mL); Vista UDS pH Range 7
[2023-12-14 13:45] LABS: Color, Urine Yellow (Yellow); Glucose, Dipstick Normal (Normal); Ketone-Dipstick Negative (Negative); Leukocyte Esterase-Dipstick 25 /ul (Negative); Nitrite-Dipstick Negative (Negative); Occult Blood-Urine Negative /ul (Negative); Protein-Dipstick Negative (Negative); Specific Gravity, Urine 1.015 (1.002-1.030); Urine Bilirubin Dipstick Negative (Negative); Urine Clarity Clear (Clear); Urine Urobilinogen Normal (Normal)
== END | disposition home or self-care (01) ==
LOC: OPBI 13:22
PROVIDERS: PCP Internal Medicine; Referring Provider Internal Medicine; Visit Provider Internal Medicine
DX: Z12.31 Encounter for screening mammogram for malignant neoplasm of breast (principal); F11.20 Opioid dependence, uncomplicated
CPT/HCPCS: 77063; 77067; 80307; 81002

== ENCOUNTER → 2024-01-06 | Outpatient (CLI) | payer MEDICARE, SELFPAY ==
--- NOTE | 2024-01-06 11:08 | NEURO ---
NCS and/or EMG Patient Report Ordering Doctor: Katerine Andino DATE OF SERVICE: 01/06/24 Clinical Summary: 68 year old female patient with symptoms of numbness, tingling, and pain in the right upper extremity including in the hand. Nerve Conduction Studies Summary: The right median-D2 SNAP distal latency was prolonged. The right ulnar-D5 SNAP distal latency was prolonged. The right median motor conduction velocity was reduced in the forearm segment. Needle Examination Summary: Needle examination of select muscles of the right upper extremity was normal. Impression: There is electrodiagnostic evidence of the following - 1) Mild, right median mononeuropathy at the wrist (carpal tunnel syndrome), with sensory fiber demyelination There is no electrodiagnostic evidence of a right cervical radiculopathy. Multi Select Codes Neurology Neurology Interp Codes: 61156-65 Musc test done w/n test comp (interp) (1) and 26630-71 Nrv cndj test 7-8 studies (interp)
== END | disposition home or self-care (01) ==
LOC: PSN 10:09
PROVIDERS: PCP Internal Medicine; Referring Provider Internal Medicine; Visit Provider Internal Medicine
DX: M79.601 Pain in right arm (principal)
CPT/HCPCS: 95886; 95910

== ENCOUNTER → 2024-03-04 | Outpatient (CLI) | payer MEDICARE, SELFPAY ==
[2024-03-04 16:55] LABS: Absolute Lymphocyte Count 2.08 X10^3/uL (0.83-4.51); Absolute Neutrophil Count 2.6 X10^3/uL (2.0-7.7); Basophil# 0.02 X10^3/uL; Basophil% 0.4 % (0-1); Eosinophil# 0.05 X10^3/uL; Eosinophils% 0.9 % (0-5); Hemoglobin 13.4 g/dL (12.0-15.0); Lymphocyte # 2.08 X10^3/ul (0.83-4.51); Lymphocyte % 39.2 % (19-41); Mean Corp Hgb Conc 32.7 g/dL (32-36); Mean Corpuscular Hgb 29.2 pg (27.0-32.0); Mean Corpuscular Volume 89.3 fL (81-99); Mean Platelet Vol. 9.2 fl (6.2-12.0); Monocyte# 0.61 X10^3/uL; Monocyte% 11.5 % (0-10); NRBC Flagged by Analyzer 0 % (0-5); Neutrophil # 2.55 X10^3/uL (2.7-7.7); Platelet Count 337 K/mm3 (150-450); RBC Distribution Width CV 14.1 % (11.6-14.6); RBC Distribution Width SD 45.7 fl (35.1-43.9); Red Blood Count 4.59 M/mm3 (4.2-5.4); White Blood Count 5.3 K/mm3 (4.4-11.0)
[2024-03-04 17:12] LABS: Erythrocyte Sedimentation Rate 25 mm/hr (0-30)
[2024-03-04 17:28] LABS: AST(SGOT) 27 U/L (15-37); Alanine Aminotransfer ALT/SGPT 23 U/L (13-56); Albumin, Serum 3.8 g/dL (3.2-5.0); Alkaline Phosphatase 69 U/L (45-117); Bilirubin, Direct 0.17 mg/dL (0.00-0.30); CRP < 2.90 mg/L (0.0-3.0); Creatinine, Serum 0.83 mg/dL (0.55-1.02); EST Glomerular Filtration Rate 72 mL/min (>60); Est Glom Filt Rate - Afr Amer 87 mL/min (>60); Globulin 3.8 g/dL (2.2-4.2); Protein, Total 7.6 g/dL (6.4-8.2)
== END | disposition home or self-care (01) ==
PROVIDERS: PCP Internal Medicine; Referring Provider Student in an Organized Health Care Education/Training Program; Visit Provider Student in an Organized Health Care Education/Training Program
DX: Z79.899 Other long term (current) drug therapy (principal)
CPT/HCPCS: 36415; 80076; 82565; 85025; 85652; 86140

== ENCOUNTER 2024-03-30 08:43 | Day surgery (SDC) | payer MEDICARE, SELFPAY ==
[2024-03-30] VITALS (9 sets, daily range): BP systolic 102–140; BP diastolic 61–74; PULSE 68–76; RESP 16; TEMP 36.4–36.9; O2SAT 91–97; BMI 27.3
[2024-03-30] MEDS: Lactated Ringers 1,000 ML 15 ML IV (09:21)
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
[2024-03-30] MEDS: 0.9% Normal Saline (Pres. free 10 ML Vial (10:29)
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
[2024-03-30] MEDS: Botulinum Toxin A 100 Units Vial IJ (10:48)
--- NOTE | 2024-03-30 11:01 | PCM.POST.ANE ---
Anesthesia: Postop Eval I Current Vital Signs Temperature: 97.5 F Pulse Rate: 70 Blood Pressure: 102/61 Respiratory Rate: 16 Pulse Ox: 94 Oxygen Delivery Method: Room Air Assessment Airway patent: Yes Spontaneous unlabored respirations: Yes Mental status: Asleep nausea: No Vomiting: No Anesthesia Complication: No Fluid Hydration Crystalloid volume administer (ml): 500 Total IV fluid infused: 500 Progress Note Anesthesia document: Postop Eval 1 completed: Yes
--- NOTE | 2024-03-30 11:06 | OP.CCLET_ITS ---
03/30/2024 Katerine Andino Md Re : Flexible Sigmoidoscopy procedure for Jocy Marquez Dear Thu This procedure was performed on Saturday, March 30, 2024. My impressions and recommendations are as follows: Impressions : - Bleeding internal hemorrhoids. Banded. - Anal fissure. Injected with botulinum toxin. - No specimens collected. Recommendations : - Use fiber, for example Citrucel, Fibercon, Konsyl or Metamucil. My findings are described in the full procedure note, which is enclosed. If I can be of further assistance, please feel free to contact me at . Sincerely, Trav Hercules, 03/30/2024 11:06:10 AM This report has been signed electronically.
--- NOTE | 2024-03-30 11:06 | OP.FLEXSIG_ITS ---
Patient Name: Jocy Marquez Procedure Date: 03/30/2024 10:28 AM Date of : 1955 Age: 68 Procedure: Flexible Sigmoidoscopy Indications: Rectal hemorrhage Providers: Trav Hercules DO Referring MD: Katerine Andino Md Medicines: Monitored Anesthesia Care Patient Profile: This is a 68 year old female. Refer to note in patient chart for documentation of history and physical. Last Colonoscopy: 3 years ago. Complications: No immediate complications. Procedure: Pre-Anesthesia Assessment: - Prior to the procedure, a History and Physical was performed, and patient medications and allergies were reviewed. The patient is competent. The risks and benefits of the procedure and the sedation options and risks were discussed with the patient. All questions were answered and informed consent was obtained. Patient identification and proposed procedure were verified by the physician in the pre-procedure area. Mental Status Examination: alert and oriented. Airway Examination: normal oropharyngeal airway and neck mobility. Respiratory Examination: clear to auscultation. CV Examination: normal. Prophylactic Antibiotics: The patient does not require prophylactic antibiotics. Prior Anticoagulants: The patient has taken no anticoagulant or antiplatelet agents. After reviewing the risks and benefits, the patient was deemed in satisfactory condition to undergo the procedure. The anesthesia plan was to use monitored anesthesia care (MAC). Immediately prior to administration of medications, the patient was re-assessed for adequacy to receive sedatives. The heart rate, respiratory rate, oxygen saturations, blood pressure, adequacy of pulmonary ventilation, and response to care were monitored throughout the procedure. The physical status of the patient was re-assessed after the procedure. After obtaining informed consent, the endoscope was passed under direct vision. Throughout the procedure, the patient's blood pressure, pulse, and oxygen saturations were monitored continuously. The colonoscope was introduced through the anus and advanced to the rectosigmoid junction. The flexible sigmoidoscopy was accomplished without difficulty. The patient tolerated the procedure well. The quality of the bowel preparation was good. Scope In: 10:46:52 AM Scope Out: 10:56:33 AM Total Procedure Duration Time 0 hours 9 minutes 41 seconds Findings: The perianal and digital rectal examinations were normal. Bleeding internal hemorrhoids were found during retroflexion. The hemorrhoids were Grade III (internal hemorrhoids that prolapse but require manual reduction). The endoscope was withdrawn. A hemorrhoid was isolated with anoscopy. The ShortShot ligator was positioned over the hemorrhoid at the left lateral position. Suction was applied and one rubber band was placed over the hemorrhoid. This was checked to make certain that the muscularis was free of the band. Post-banding digital rectal exam showed band in good position. Mild oozing of blood was present. An 8 mm anal fissure was found in the anal canal. The internal anal sphincter was successfully injected with 100 units botulinum toxin. Impression: - Bleeding internal hemorrhoids. Banded. - Anal fissure. Injected with botulinum toxin. - No specimens collected. Recommendation: - Use fiber, for example Citrucel, Fibercon, Konsyl or Metamucil. Procedure Code(s): --- Professional --- 89139, Chemodenervation of internal anal sphincter 86553, 51, Hemorrhoidectomy, internal, by rubber band ligation(s) 73159, 59,52, Sigmoidoscopy, flexible; diagnostic, including collection of specimen(s) by brushing or washing, when performed (separate procedure) CPT copyright 2021 [employer]. All rights reserved. The codes documented in this report are preliminary and upon remote inpatient coder review may be revised to meet current compliance requirements. Trav Hercules DO 03/30/2024 11:06:10 AM This report has been signed electronically. Number of Addenda: 0 Note Initiated On: 03/30/2024 10:28 AM
--- NOTE | 2024-03-30 12:15 | PCM.POSTANE2 ---
Anesthesia Postop Eval I Sum Postop Eval Completion status Anesthesia document: Postop Eval 1 completed: Yes Anesthesia Postop Eval I Summary Anesthesia Postop Eval I Summary: Anesthesia Postop Eval I: Assessment Summary Airway patent Yes 03/30/24 11:06 [email or web address] Spontaneous unlabored Yes 03/30/24 11:06 [email or web address] respirations Mental status Asleep 03/30/24 11:06 [email or web address] nausea No 03/30/24 11:06 [email or web address] Vomiting No 03/30/24 11:06 [email or web address] Anesthesia Postop Eval I: Fluid Summary Crystalloid volume administer 500 03/30/24 11:06 [email or web address] (ml) Colloids volume administered ( ml) Blood Product volume administered (ml) Total IV fluid infused 500 03/30/24 11:06 [email or web address] Anesthesia Postop Eval I: Summary Notes Anesthesia Complication No 03/30/24 11:06 [email or web address] Anesthesia Complication Comment: Post-operative progress note Anesthesia: Postop Eval II Evaluation Mental status: Awake Pain Level: 0 nausea: No Vomiting: No Complications Anesthesia Complication: No
== END 2024-03-30 11:44 | disposition home or self-care (01) ==
LOC: EN 08:45 → AC 08:45
PROVIDERS: PCP Internal Medicine; Referring Provider Internal Medicine; Visit Provider Internal Medicine Gastroenterology
PROC: 0DJD8ZZ Inspection of Lower Intestinal Tract, Via Natural or Artificial Opening Endoscopic (ICD-10-PCS; CPT 45330; principal; 2024-03-30 09:40)
DX: K62.5 Hemorrhage of anus and rectum (principal); R19.7 Diarrhea, unspecified; K64.9 Unspecified hemorrhoids; K60.2 Anal fissure, unspecified; K21.00 Gastro-esophageal reflux disease with esophagitis, without bleeding; F41.9 Anxiety disorder, unspecified; F32.A Depression, unspecified; R51.9 Headache, unspecified; R53.83 Other fatigue
CPT/HCPCS: 45330; 46221; 46505; J7120; J0585; J2405; J3490

== ENCOUNTER → 2024-07-06 | Outpatient (CLI) | payer MEDICARE, SELFPAY ==
[2024-07-06 11:42] LABS: Amphetamine Urine VISTA NEGATIVE (<1000 ng/mL); Barbiturate Urine VISTA NEGATIVE (< 200 ng/mL); Benzodiazepine Urine VISTA NEGATIVE (< 200 ng/mL); Cocaine Urine VISTA NEGATIVE (< 300 ng/mL); Ecstacy Urine VISTA NEGATIVE (< 500 ng/mL); Methadone Urine VISTA NEGATIVE (< 300 ng/mL); PCP Urine VISTA NEGATIVE (< 25 ng/mL); THC Urine VISTA NEGATIVE (< 50 ng/mL); Vista UDS pH Range 7
== END | disposition home or self-care (01) ==
LOC: LAB 11:01
PROVIDERS: PCP Internal Medicine; Referring Provider Anesthesiology Pain Medicine; Visit Provider Anesthesiology Pain Medicine
DX: F11.20 Opioid dependence, uncomplicated (principal)
CPT/HCPCS: 80307

== ENCOUNTER → 2024-08-10 | Outpatient (CLI) | payer MEDICARE, SELFPAY ==
[2024-08-10 13:44] LABS: Mucous, Urine 0 SEEN /hpf (<or=2+); Red Blood Cells-Urine 0 SEEN /hpf (0-5)
[2024-08-10 15:40] LABS: Color, Urine Yellow (Yellow); Glucose, Dipstick Normal (Normal); Ketone-Dipstick Negative (Negative); Leukocyte Esterase-Dipstick Negative /ul (Negative); Nitrite-Dipstick Negative (Negative); Occult Blood-Urine Negative /ul (Negative); Protein-Dipstick Negative (Negative); Urine Bilirubin Dipstick Negative (Negative); Urine Clarity Sl. Cloudy (Clear); Urine Urobilinogen Normal (Normal)
[2024-08-10 16:51] LABS: Amorphous Sediment 3+ PHOS
[2024-08-10 16:53] LABS: Bacteria 1+ /hpf (None Seen); Squamous Epithelial Cells - UA 0-5 SEEN /hpf (5-10); White Blood Cells 0-5 SEEN /hpf (0-5)
== END | disposition home or self-care (01) ==
LOC: LABSPEC 13:30
PROVIDERS: PCP Internal Medicine; Referring Provider Internal Medicine; Visit Provider Internal Medicine
DX: R30.0 Dysuria (principal); R50.9 Fever, unspecified
CPT/HCPCS: 81001; 87086; 87088; 87633

== ENCOUNTER → 2024-08-22 | Outpatient (CLI) | payer MEDICARE, SELFPAY ==
[2024-08-22 15:34] LABS: Cholesterol 147 mg/dL (200); High Density Lipoprotein 52 mg/dL; Triglycerides 92 mg/dL; Very Low Density Lipoprotein 18 mg/dL (5-40)
== END | disposition home or self-care (01) ==
LOC: LAB 14:15
PROVIDERS: PCP Internal Medicine; Referring Provider Nurse Practitioner; Visit Provider Nurse Practitioner
DX: E78.5 Hyperlipidemia, unspecified (principal); R73.09 Other abnormal glucose; E03.9 Hypothyroidism, unspecified
CPT/HCPCS: 36415; 80061; 83036; 84443

== ENCOUNTER → 2024-09-14 | Outpatient (CLI) | payer MEDICARE, SELFPAY ==
--- NOTE | 2024-09-14 12:40 | BD_ITS ---
STUDY: DUAL ENERGY X-RAY ABSORPTIOMETRY / DXA REASON FOR EXAM: Female, 69 years old. Osteoporosis TECHNIQUE: Bone Mineral Density (BMD) measurements of lumbar spine and right hip were obtained. COMPARISON: Comparison is made with prior study dated August 26, 2022. FINDINGS: Lumbar Spine (L1-L4): g/cm2 (1.065) / T-score (-0.1) / Z-score (2.0) Findings are suggestive of normal bone density with a low fracture risk. Right Femur Total: g/cm2 (0.711) / T-score (-1.9) / Z-score (-0.5) Right Femoral Neck: g/cm2 (0.576) / T-score (-2.5) / Z-score (-0.7) The T-Scores on the most recent prior examination were: Lumbar Spine (L1-L4): There has been improvement of bone density since the previous examination. Right Femur Total: which represents an improvement of 9.5%. BD/Dexa Bone Density Study IMPRESSION: The patient is considered osteoporotic as outlined below according to World Sean Organization (WHO) criteria with a high fracture risk. There has been improvement of bone density since the previous examination. Reference Information: The T-score is the number of standard deviations above or below the standard which is normal for young adults at their peak bone mineral density. The World Health Organization (WHO) interprets the T-scores as follows: Above -1 Normal bone density Between -1 and -2.5 Osteopenia Equal to / or below -2.5 Osteoporosis As a practical clinical guideline, osteopenia may be graded as follows: Mild -1 through -1.5 Moderate -1.6 through -2.0 Severe -2.1 through -2.4 The Z-score is the number of standard deviations above or below age-matched controls. A Z-score of less than -1.5 would be considered abnormal. References: 1. NIH Osteoporosis and Related Bone Diseases www osteo.org 2. International Society for Clinical Densitometry www iscd.org 3. National Osteoporosis Foundation www nof.org Electronically Signed: Jere Emery MD at 14:19 EST ,
== END | disposition home or self-care (01) ==
LOC: OPBD 12:40
PROVIDERS: PCP Internal Medicine; Referring Provider Internal Medicine; Visit Provider Nurse Practitioner
DX: M81.0 Age-related osteoporosis without current pathological fracture (principal)
CPT/HCPCS: 77080

== ENCOUNTER → 2024-10-17 | Outpatient (CLI) | payer MEDICARE, SELFPAY ==
[2024-10-17 13:12] LABS: Absolute Lymphocyte Count 1.91 X10^3/uL (0.83-4.51); Absolute Neutrophil Count 5.6 X10^3/uL (2.0-7.7); Basophil# 0.02 X10^3/uL; Basophil% 0.2 % (0-1); Eosinophils% 16.3 % (0-5); Hematocrit 31.5 % (37-47); Hemoglobin 10.3 g/dL (12.0-15.0); Lymphocyte # 1.91 X10^3/ul (0.83-4.51); Lymphocyte % 19.5 % (19-41); Mean Corp Hgb Conc 32.7 g/dL (32-36); Mean Corpuscular Hgb 30.1 pg (27.0-32.0); Mean Corpuscular Volume 92.1 fL (81-99); Mean Platelet Vol. 8.9 fl (6.2-12.0); Monocyte# 0.53 X10^3/uL; Monocyte% 5.4 % (0-10); NRBC Flagged by Analyzer 0 % (0-5); Neutrophil # 5.64 X10^3/uL (2.7-7.7); Neutrophil % 57.7 % (47-70); Platelet Count 359 K/mm3 (150-450); RBC Distribution Width CV 13.7 % (11.6-14.6); RBC Distribution Width SD 46.1 fl (35.1-43.9); Red Blood Count 3.42 M/mm3 (4.2-5.4); White Blood Count 9.8 K/mm3 (4.4-11.0)
== END | disposition home or self-care (01) ==
LOC: LAB 12:52
PROVIDERS: PCP Internal Medicine; Referring Provider Student in an Organized Health Care Education/Training Program; Visit Provider Student in an Organized Health Care Education/Training Program
DX: D72.829 Elevated white blood cell count, unspecified (principal)
CPT/HCPCS: 36415; 85025

== ENCOUNTER → 2024-10-31 | Outpatient (CLI) | payer MEDICARE, SELFPAY ==
--- NOTE | 2024-10-31 13:44 | ECHOD_ITS ---
Reason For Study: MITRAL REGURGITATION Procedure This was a 2D Doppler, Color Flow transthoracic echocardiogram. Exam performed in department. Left Ventricle Normal LV size. The left ventricular ejection fraction is 60 %. No regional wall motion abnormalities noted. Right Ventricle Normal RV size. Normal systolic function. Atria Normal left atrium. Normal right atrium. Mitral Valve Normal mitral valve. Mild-Moderate (1-2+) eccentric mitral valve insufficiency. Tricuspid Valve Normal tricuspid valve. Mild tricuspid valve insufficiency. Pulmonary artery systolic pressure is 24 mmHg. Aortic Valve Trisinus/trileaflet aortic valve. Mild focal aortic valve calcification. Pulmonic Valve Normal pulmonic valve. Great Vessels Normal aortic root. The pulmonary artery is normal size. Inferior vena cava collapse with sniff. Pericardium/Pleural No pericardial effusion. MMode/2D Measurements & Calculations LVIDd: 3.9 cm IVSd: 1.0 cm LVOT diam: 2.0 cm LVIDs: 2.4 cm LVPWd: 0.83 cm LVOT area: 3.2 cm2 RVDd: 3.4 cm FS: 38.9 % asc Aorta Diam: 3.3 cm LAV(MOD-bp): 35.1 ml LVAd ap4: 20.0 cm2 LAV(MOD-bp) Indexed: 20.6 ml/m2 LVLd ap4: 6.5 cm LAV(MOD-sp2): 32.7 ml EDV(MOD-sp4): 50.7 ml LAV(MOD-sp4): 36.8 ml EDV(sp4-el): 52.0 ml LVAs ap4: 11.3 cm2 LVLs ap4: 5.7 cm ESV(MOD-sp4): 18.9 ml ESV(sp4-el): 18.9 ml EF(MOD-sp4): 62.8 % EF(sp4-el): 63.6 % LVAd ap2: 18.8 cm2 SV(MOD-sp4): 31.8 ml SV(MOD-sp2): 28.8 ml LVLd ap2: 7.1 cm SI(MOD-sp4): 18.7 ml/m2 SI(MOD-sp2): 16.9 ml/m2 EDV(MOD-sp2): 41.3 ml EDV(sp2-el): 42.6 ml LVAs ap2: 9.1 cm2 LVLs ap2: 5.5 cm ESV(MOD-sp2): 12.5 ml ESV(sp2-el): 12.8 ml EF(MOD-sp2): 69.7 % SV(sp4-el): 33.1 ml Ao sinus diam: 3.[address] Junction: 2.6 cm LA dimension(2D): 3.7 cm LA A4 area: 14.8 cm2 RA A4 area: 9.4 cm2 TAPSE: 2.0 cm Time Measurements MV dec time: 0.19 sec Doppler Measurements & Calculations MV E max samuel: 68.1 cm/sec Lat Peak E' Samuel: 9.6 cm/sec Med Peak E' Samuel: 9.0 cm/sec MV A max samuel: 75.3 cm/sec E/E' lat: 7.1 E/E' med: 7.6 MV E/A: 0.90 MV dec slope: 356.1 cm/sec2 Ao V2 max: 121.6 cm/sec LV V1 max: 97.2 cm/sec Ao max P.9 mmHg LV V1 max P.8 mmHg Ao V2 mean: 91.0 cm/sec LV V1 mean P.0 mmHg Ao mean P.5 mmHg LV V1 mean: 67.7 cm/sec Ao V2 VTI: 23.4 cm LV V1 VTI: 18.7 cm AV (velocity ratio): 0.80 RAJESH(I,D): 2.6 cm2 RAJESH(V,D): 2.6 cm2 SV(LVOT): 60.9 ml PA V2 max: 82.9 cm/sec TR max samuel: 230.3 cm/sec TR max P.2 mmHg ECHO/Echo Complete Interpretation Summary Normal LV size. The left ventricular ejection fraction is 60 %. Mild-Moderate (1-2+) eccentric mitral valve insufficiency. Pulmonary artery systolic pressure is 24 mmHg. Ordering Physician: Zuleyma Lopez Referring Physician: Zuleyma Lopez Performed By: Radha Chawla RDCS
== END | disposition home or self-care (01) ==
LOC: CVS 13:43
PROVIDERS: PCP Internal Medicine; Referring Provider Physician Assistant Medical; Visit Provider Physician Assistant Medical
DX: I34.0 Nonrheumatic mitral (valve) insufficiency (principal)
CPT/HCPCS: 93306

== ENCOUNTER → 2024-11-24 | Outpatient (CLI) | payer MEDICARE, SELFPAY ==
[2024-11-24 13:19] LABS: Absolute Lymphocyte Count 2.04 X10^3/uL (0.83-4.51); Absolute Neutrophil Count 4.5 X10^3/uL (2.0-7.7); Basophil# 0.02 X10^3/uL; Basophil% 0.3 % (0-1); Eosinophil# 0.12 X10^3/uL; Eosinophils% 1.7 % (0-5); Hematocrit 40.3 % (37-47); Hemoglobin 12.8 g/dL (12.0-15.0); Lymphocyte # 2.04 X10^3/ul (0.83-4.51); Lymphocyte % 28.2 % (19-41); Mean Corp Hgb Conc 31.8 g/dL (32-36); Mean Corpuscular Hgb 29.4 pg (27.0-32.0); Mean Corpuscular Volume 92.4 fL (81-99); Mean Platelet Vol. 9.8 fl (6.2-12.0); Monocyte# 0.56 X10^3/uL; Monocyte% 7.7 % (0-10); NRBC Flagged by Analyzer 0 % (0-5); Neutrophil # 4.48 X10^3/uL (2.7-7.7); Neutrophil % 61.8 % (47-70); Platelet Count 310 K/mm3 (150-450); RBC Distribution Width CV 14.2 % (11.6-14.6); RBC Distribution Width SD 48.5 fl (35.1-43.9); Red Blood Count 4.36 M/mm3 (4.2-5.4); White Blood Count 7.2 K/mm3 (4.4-11.0)
== END | disposition home or self-care (01) ==
LOC: LABSPEC 11:45 → LAB 12:47
PROVIDERS: PCP Internal Medicine; Referring Provider Physician Assistant; Visit Provider Physician Assistant
DX: D64.9 Anemia, unspecified (principal)
CPT/HCPCS: 36415; 82274; 85025

== ENCOUNTER 2024-12-22 10:46 | Outpatient (CLI) | payer MEDICARE, SELFPAY | END 2024-12-22 23:59 | disposition home or self-care (01) | LOC: LABSPEC 10:47 | PROVIDERS: PCP Internal Medicine; Referring Provider Internal Medicine; Visit Provider Internal Medicine | DX: D64.9 Anemia, unspecified (principal) | CPT/HCPCS: 36415; 82274 ==

== ENCOUNTER 2025-03-29 07:27 | Day surgery (SDC) | payer MEDICARE, SELFPAY ==
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
[2025-03-29] VITALS (8 sets, daily range): BP systolic 94–113; BP diastolic 47–66; PULSE 75–80; RESP 16–18; TEMP 36.3–36.7; O2SAT 91–97; BMI 25.8
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
[2025-03-29] MEDS: Lactated Ringers 1,000 ML 15 ML IV (08:10)
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
--- NOTE | 2025-03-29 08:45 | EGD_PTH ---
PATIENT: NIRU ROBERSON LOC: EN U#:[id number] AGE/SX: 69/F ROOM: RE03/29/[address]: Dr. Trav Hercules DO : 1955 BED: DIS: 03/29/2025 SPEC #: [id number] RECD: 03/29/25 13:05 STATUS: MELO ILIANA #: [id number] BRANDIN: 03/29/25 08:[address]: Trav Hercules DEPT: SURGICAL PATHOLOGY RECD BY: Kiran Carter ENTERED: 03/29/25 13:57 SP TYPE: EGD BIOPSY MARY ANN DR: Dr. Katerine Andino MD Tissues: A - Duodenum, NOS B - Gastric mucous membrane C - COLON BIOPSY Procedures: Immunohistochemical Stains Surgery Specimen Level IV HEADER OPERATION: Colonoscopy with biopsy, EGD with biopsy PRE-OP DIAGNOSIS: Anemia, internal hemorrhoids, abdominal pain, dysphagia TISSUE SUBMITTED: A- Duodenum biopsy, B- Gastric body biopsy, C- Random colon biopsy MICROSCOPIC DIAGNOSIS A. Duodenum, biopsy: Normal villous architecture with Warren gland hyperplasia. Negative for increased intraepithelial lymphocytes. B. Gastric body, biopsy: Oxyntic mucosa with features of reactive gastropathy. IHC negative for H pylori organisms. C. Colon, random biopsy: Widespread mild acute inflammation - see note. Note: The histologic differential diagnosis includes bowel prep artifact, medication injury reaction, infection, and ischemia. Recommend correlation with clinical and endoscopic findings. MICROSCOPIC DESCRIPTION Slides are reviewed. All matched controls reacted appropriately. These tests were developed and their performance characteristics determined by [facility]. They may not have been cleared or approved by the [place]. Food and Drug Administration. The FDA has determined that such clearance or approval is not necessary. The above immunohistochemical/dualISH markers are reviewed by the Pathologist. GROSS DESCRIPTION A. Received in fixative is one container labeled with the patient's name and designated Duodenum biopsy. The specimen consists of two irregular fragments of light jordan soft tissue that in aggregate measure 0.3 and 0.5 cm. The specimen is totally submitted in one cassette. B. Received in fixative is one container labeled with the patient's name and designated Gastric body biopsy. The specimen consists of two irregular fragments of light jordan soft tissue that in aggregate measure 0.3 and 0.4 cm. The specimen is totally submitted in one cassette. C. Received in fixative is one container labeled with the patient's name and designated Random colon biopsy. The specimen consists of five irregular fragments of light jordan soft tissue that in aggregate measure 0.3 to 0.5 cm. The specimen is totally submitted in one cassette. SHARI/ 03/29/2025 CPT:[id number]
--- NOTE | 2025-03-29 09:41 | OP.CCLET_ITS ---
03/29/2025 Katerine Andino Md Re : Upper GI endoscopy procedure for Jocy Marquez Dear Thu This procedure was performed on Saturday, March 29, 2025. My impressions and recommendations are as follows: Impressions : - Abnormal esophageal motility. - Erythematous mucosa in the gastric body. Biopsied. - Erythematous duodenopathy. Biopsied. Recommendations : - Discharge patient to home. - Resume previous diet. - Continue present medications. - Await pathology results. My findings are described in the full procedure note, which is enclosed. If I can be of further assistance, please feel free to contact me at . Sincerely, Trav Hercules DO 03/29/2025 9:41:09 AM This report has been signed electronically.
--- NOTE | 2025-03-29 09:41 | OP.EGD_ITS ---
Patient Name: Jocy Marquez Procedure Date: 03/29/2025 9:05 AM Date of : 1955 Age: 69 Procedure: Upper GI endoscopy Indications: Epigastric abdominal pain, Functional Dyspepsia, Dysphagia Providers: Trav Hercules DO Medicines: Monitored Anesthesia Care Patient Profile: This is a 69 year old female. Refer to note in patient chart for documentation of history and physical. Patient has symptoms of chronic abdominal cramping, chronic abdominal distention, chronic epigastric abdominal pain and dysphagia with both liquids and solids. Complications: No immediate complications. Procedure: Pre-Anesthesia Assessment: - Prior to the procedure, a History and Physical was performed, and patient medications and allergies were reviewed. The patient is competent. The risks and benefits of the procedure and the sedation options and risks were discussed with the patient. All questions were answered and informed consent was obtained. Patient identification and proposed procedure were verified by the physician in the pre-procedure area. Mental Status Examination: alert and oriented. Airway Examination: normal oropharyngeal airway and neck mobility. Respiratory Examination: clear to auscultation. CV Examination: normal. Prophylactic Antibiotics: The patient does not require prophylactic antibiotics. Prior Anticoagulants: The patient has taken no anticoagulant or antiplatelet agents except for NSAID medication. ASA Grade Assessment: II - A patient with mild systemic disease. After reviewing the risks and benefits, the patient was deemed in satisfactory condition to undergo the procedure. The anesthesia plan was to use monitored anesthesia care (MAC). Immediately prior to administration of medications, the patient was re-assessed for adequacy to receive sedatives. The heart rate, respiratory rate, oxygen saturations, blood pressure, adequacy of pulmonary ventilation, and response to care were monitored throughout the procedure. The physical status of the patient was re-assessed after the procedure. After obtaining informed consent, the endoscope was passed under direct vision. Throughout the procedure, the patient's blood pressure, pulse, and oxygen saturations were monitored continuously. The Colonoscope was introduced through the mouth, and advanced to the third part of the duodenum. Small bowel enteroscopy was deemed necessary. The upper GI endoscopy was accomplished without difficulty. The patient tolerated the procedure well. Scope In: 9:16:02 AM Scope Out: 9:18:36 AM Total Procedure Duration Time 0 hours 2 minutes 34 seconds Findings: Abnormal motility was noted in the esophagus. The cricopharyngeus was abnormal. There are extra peristaltic waves in the esophageal body. The distal esophagus/lower esophageal sphincter is spastic, but gives up passage to the endoscope. Diffuse mildly erythematous mucosa with bleeding was found in the gastric body. Biopsies were taken with a cold forceps for histology. Verification of patient identification for the specimen was done. Estimated blood loss was minimal. Biopsies were taken with a cold forceps for Helicobacter pylori testing. Verification of patient identification for the specimen was done. Estimated blood loss was minimal. Patchy mildly erythematous mucosa without active bleeding and with no stigmata of bleeding was found in the entire duodenum. Biopsies were taken with a cold forceps for histology. Verification of patient identification for the specimen was done. Estimated blood loss was minimal. Impression: - Abnormal esophageal motility. - Erythematous mucosa in the gastric body. Biopsied. - Erythematous duodenopathy. Biopsied. Recommendation: - Discharge patient to home. - Resume previous diet. - Continue present medications. - Await pathology results. Procedure Code(s): --- Professional --- 79464, Small intestinal endoscopy, enteroscopy beyond second portion of duodenum, not including ileum; with biopsy, single or multiple CPT copyright 2021 [employer]. All rights reserved. The codes documented in this report are preliminary and upon roof technician review may be revised to meet current compliance requirements. Trav Hercules DO 03/29/2025 9:41:09 AM This report has been signed electronically. Number of Addenda: 0 Note Initiated On: 03/29/2025 9:05 AM
--- NOTE | 2025-03-29 09:45 | OP.COLON_ITS ---
Patient Name: Jocy Marquez Procedure Date: 03/29/2025 9:18 AM Date of : 1955 Age: 69 Procedure: Colonoscopy Indications: Generalized abdominal pain, Clinically significant diarrhea of unexplained origin Providers: Trav Hercules DO Medicines: Monitored Anesthesia Care Patient Profile: This is a 69 year old female. Refer to note in patient chart for documentation of history and physical. Patient has symptoms of chronic abdominal cramping, chronic abdominal distention, chronic epigastric abdominal pain and dysphagia with both liquids and solids. Last Colonoscopy: 5 years ago. Complications: No immediate complications. Procedure: Pre-Anesthesia Assessment: - Prior to the procedure, a History and Physical was performed, and patient medications and allergies were reviewed. The patient is competent. The risks and benefits of the procedure and the sedation options and risks were discussed with the patient. All questions were answered and informed consent was obtained. Patient identification and proposed procedure were verified by the physician in the pre-procedure area. Mental Status Examination: alert and oriented. Airway Examination: normal oropharyngeal airway and neck mobility. Respiratory Examination: clear to auscultation. CV Examination: normal. Prophylactic Antibiotics: The patient does not require prophylactic antibiotics. Prior Anticoagulants: The patient has taken no anticoagulant or antiplatelet agents except for NSAID medication. ASA Grade Assessment: II - A patient with mild systemic disease. After reviewing the risks and benefits, the patient was deemed in satisfactory condition to undergo the procedure. The anesthesia plan was to use monitored anesthesia care (MAC). Immediately prior to administration of medications, the patient was re-assessed for adequacy to receive sedatives. The heart rate, respiratory rate, oxygen saturations, blood pressure, adequacy of pulmonary ventilation, and response to care were monitored throughout the procedure. The physical status of the patient was re-assessed after the procedure. After I obtained informed consent, the scope was passed under direct vision. Throughout the procedure, the patient's blood pressure, pulse, and oxygen saturations were monitored continuously. The Colonoscope was introduced through the anus and advanced to the cecum, identified by appendiceal orifice and ileocecal valve. The colonoscopy was performed without difficulty. The patient tolerated the procedure well. The quality of the bowel preparation was good. The ileocecal valve, appendiceal orifice, and rectum were photographed. Scope In: 9:19:45 AM Scope Withdrawal Time 0 hours 9 minutes 25 seconds Scope Out: 9:35:38 AM Total Procedure Duration Time 0 hours 15 minutes 53 seconds Findings: The perianal and digital rectal examinations were normal. External and internal hemorrhoids were found during retroflexion. The hemorrhoids were Grade IV (internal hemorrhoids that prolapse and cannot be reduced manually). Multiple small and large-mouthed diverticula were found in the recto-sigmoid colon, sigmoid colon, descending colon, transverse colon and hepatic flexure. An area of mildly congested mucosa was found in the sigmoid colon, in the descending colon, in the transverse colon and at the hepatic flexure. Biopsies were taken with a cold forceps for histology. Verification of patient identification for the specimen was done. Estimated blood loss was minimal. Impression: - External and internal hemorrhoids. - Diverticulosis in the recto-sigmoid colon, in the sigmoid colon, in the descending colon, in the transverse colon and at the hepatic flexure. - Congested mucosa in the sigmoid colon, in the descending colon, in the transverse colon and at the hepatic flexure. Biopsied. Recommendation: - Repeat colonoscopy for surveillance based on pathology results. - Continue present medications. Trav Hercules DO 03/29/2025 9:45:25 AM This report has been signed electronically. Number of Addenda: 0 Note Initiated On: 03/29/2025 9:18 AM
--- NOTE | 2025-03-29 09:45 | PCM.POST.ANE ---
Anesthesia: Postop Eval I Current Vital Signs Temperature: 97.3 F Pulse Rate: 79 Blood Pressure: 95/47 Respiratory Rate: 16 Pulse Ox: 93 Oxygen Delivery Method: Room Air Assessment Airway patent: Yes Spontaneous unlabored respirations: Yes Mental status: Awake and Calm nausea: No Vomiting: No Anesthesia Complication: No Fluid Hydration Crystalloid volume administer (ml): 800 Total IV fluid infused: 800 Progress Note Anesthesia document: Postop Eval 1 completed: Yes
--- NOTE | 2025-03-29 09:46 | OP.CCLET_ITS ---
03/29/2025 Katerine Andino Md Re : Colonoscopy procedure for Jocy Marquez Dear Thu This procedure was performed on Saturday, March 29, 2025. My impressions and recommendations are as follows: Impressions : - External and internal hemorrhoids. - Diverticulosis in the recto-sigmoid colon, in the sigmoid colon, in the descending colon, in the transverse colon and at the hepatic flexure. - Congested mucosa in the sigmoid colon, in the descending colon, in the transverse colon and at the hepatic flexure. Biopsied. Recommendations : - Repeat colonoscopy for surveillance based on pathology results. - Continue present medications. My findings are described in the full procedure note, which is enclosed. If I can be of further assistance, please feel free to contact me at . Sincerely, Trav Hercules, 03/29/2025 9:45:25 AM This report has been signed electronically.
--- NOTE | 2025-03-29 16:11 | PCM.POSTANE2 ---
Anesthesia Postop Eval I Sum Postop Eval Completion status Anesthesia document: Postop Eval 1 completed: Yes Anesthesia Postop Eval I Summary Anesthesia Postop Eval I Summary: Anesthesia Postop Eval I: Assessment Summary Airway patent Yes 03/29/25 09:46 [email or web address] Spontaneous unlabored Yes 03/29/25 09:46 [email or web address] respirations Mental status Awake,Calm 03/29/25 09:46 [email or web address] nausea No 03/29/25 09:46 [email or web address] Vomiting No 03/29/25 09:46 [email or web address] Anesthesia Postop Eval I: Fluid Summary Crystalloid volume administer 800 03/29/25 09:46 [email or web address] (ml) Colloids volume administered ( ml) Blood Product volume administered (ml) Total IV fluid infused 800 03/29/25 09:46 [email or web address] Anesthesia Postop Eval I: Summary Notes Anesthesia Complication No 03/29/25 09:46 [email or web address] Anesthesia Complication Comment: Post-operative progress note Anesthesia: Postop Eval II Evaluation Mental status: Awake Pain Level: 0 nausea: No Vomiting: No
== END 2025-03-29 10:14 | disposition home or self-care (01) ==
LOC: EN 07:28 → AC 07:29
PROVIDERS: PCP Internal Medicine; Referring Provider Internal Medicine; Visit Provider Internal Medicine Gastroenterology
PROC: 0DJD8ZZ Inspection of Lower Intestinal Tract, Via Natural or Artificial Opening Endoscopic (ICD-10-PCS; CPT 45378; principal; 2025-03-29 08:40)
DX: K52.9 Noninfective gastroenteritis and colitis, unspecified (principal); M06.9 Rheumatoid arthritis, unspecified; D64.9 Anemia, unspecified; K64.3 Fourth degree hemorrhoids; K64.4 Residual hemorrhoidal skin tags; E78.00 Pure hypercholesterolemia, unspecified; I10 Essential (primary) hypertension; K57.30 Diverticulosis of large intestine without perforation or abscess without bleeding; K21.00 Gastro-esophageal reflux disease with esophagitis, without bleeding; Z87.891 Personal history of nicotine dependence; M79.7 Fibromyalgia; Z79.899 Other long term (current) drug therapy; F32.A Depression, unspecified; F41.9 Anxiety disorder, unspecified; Z90.49 Acquired absence of other specified parts of digestive tract; M81.0 Age-related osteoporosis without current pathological fracture; Z79.52 Long term (current) use of systemic steroids; Z79.620 Long term (current) use of immunosuppressive biologic; K31.89 Other diseases of stomach and duodenum; Z79.51 Long term (current) use of inhaled steroids; Z79.890 Hormone replacement therapy; E03.9 Hypothyroidism, unspecified
CPT/HCPCS: 45380; 43239; 88305; 88342; J2405

== ENCOUNTER → 2025-07-31 | Outpatient (CLI) | payer MEDICARE, SELFPAY ==
--- NOTE | 2025-07-31 14:00 | BI_ITS ---
EXAM: DIAG MAMM W/CAD, BILAT N/A CLINICAL HISTORY: F, Age 69 y/o , BREAST LUMP palpable abnormality right breast. Evaluate. History of bilateral breast reduction surgery. TECHNIQUE: Procedure Code: [id number] Modality: MG Procedure: DIAG MAMM W/CAD, BILAT. COMPARISON: Prior exam(s) dated 12/14/2023 and 06/12/2022. FINDINGS: TISSUE DENSITY: The breasts are almost entirely fatty. Bilateral Breast Mammographic Findings: A radiopaque marker is placed over the right breast palpable abnormality. This appears to represent benign macrocalcifications which may be due to fat necrosis from her prior breast reduction surgery. Benign-appearing macrocalcifications are seen elsewhere in the right and left breasts which appears stable. No suspicious masses, suspicious cluster of microcalcifications, architectural distortion or secondary sign of malignancy is identified in either breast. BI/DIAG MAMM W/CAD, BILAT IMPRESSION: The palpable abnormality in the right breast appears to represent benign calcif ications presumably from her prior breast reduction surgery. If the area does increase in size, ultrasound should be per formed. Otherwise, the patient should return in 1 year for routine yearly screening mammography. OVERALL FINAL ASSESSMENT BI-RADS 2: BENIGN RECOMMENDATION: Routine annual follow-up in 1 Year Additional Recommendation none A letter with findings and recommendations will be mailed to the patient. Reading Location: [id number]
== END | disposition home or self-care (01) ==
PROVIDERS: PCP Internal Medicine; Referring Provider Internal Medicine; Visit Provider Internal Medicine
DX: N63.0 Unspecified lump in unspecified breast (principal); R92.8 Other abnormal and inconclusive findings on diagnostic imaging of breast
CPT/HCPCS: 77062; 77066; G0279

== ENCOUNTER → 2025-08-16 | Outpatient (CLI) | payer MEDICARE, SELFPAY ==
[2025-08-16 12:43] LABS: Hematocrit 40.1 % (37-47); Hemoglobin 12.8 g/dL (12.0-15.0); Immature Granulocytes Count 0.020 X10^3/uL (0.0-0.0); Mean Corp Hgb Conc 31.9 g/dL (32-36); Mean Corpuscular Volume 90.7 fL (81-99); Mean Platelet Vol. 8.9 fl (6.2-12.0); NRBC Flagged by Analyzer 0 % (0-5); Platelet Count 339 K/mm3 (150-450); RBC Distribution Width CV 13.3 % (11.6-14.6); RBC Distribution Width SD 43.8 fl (35.1-43.9); Red Blood Count 4.42 M/mm3 (4.2-5.4); White Blood Count 7.9 K/mm3 (4.4-11.0)
[2025-08-16 13:34] LABS: AST(SGOT) 20 U/L (<=31); Alanine Aminotransfer ALT/SGPT 10 U/L (<=34); Albumin, Serum 4.0 g/dL (3.4-4.8); Alkaline Phosphatase 59 U/L (35-104); Anion Gap 10 (5-15); BUN 16 mg/dL (4-19); BUN/Creat Ratio 28.5 RATIO (10-20); Calcium,Total 9.6 mg/dL (7.6-11.0); Carbon Dioxide 25.6 mmol/L (21.0-32.0); Chloride 99 mmol/L (98-108); Cholesterol 147 mg/dL (<=200); Globulin 3.4 g/dL (2.2-4.2); Glucose 93 mg/dL (70-99); Low Density Lipoprotein Calc. 77 mg/dL; Potassium 4.1 mmol/L (3.3-5.1); Triglycerides 74 mg/dL; Very Low Density Lipoprotein 15 mg/dL (5-40); Vitamin D,25 Hydroxy 29.9 ng/mL (30-100); cholesterol:hdl ratio screen 2.63
== END | disposition home or self-care (01) ==
LOC: LAB 11:53
PROVIDERS: PCP Internal Medicine; Referring Provider Internal Medicine; Visit Provider Internal Medicine
DX: E03.9 Hypothyroidism, unspecified (principal); R73.03 Prediabetes; E78.5 Hyperlipidemia, unspecified; M81.0 Age-related osteoporosis without current pathological fracture
CPT/HCPCS: 36415; 80053; 80061; 82306; 83036; 84443; 85025

== ENCOUNTER → 2025-08-17 | Outpatient (CLI) | payer MEDICARE, SELFPAY ==
--- NOTE | 2025-08-17 14:55 | RAD_ITS ---
PROCEDURE: WRIST MIN 3 VIEWS 08/17/2025 REASON FOR EXAM: WRIST PAIN TECHNIQUE: Procedure Code: RADWR Modality: DX Procedure: WRIST MIN 3 VIEWS Laterality: Right COMPARISON: Right wrist study of 12/02/2023. 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 At least mild degenerative changes are seen of the scaphoid trapezial trapezoid joint. Calcifications of the TFCC again noted. No significant degree of ulnar variance is noted. Satisfactory carpal alignment is seen. No fracture or dislocation is seen. Reading Location: [place] [id number]
== END | disposition home or self-care (01) ==
LOC: RAD 14:51
PROVIDERS: PCP Internal Medicine; Referring Provider Internal Medicine; Visit Provider Internal Medicine
DX: M25.531 Pain in right wrist (principal)
CPT/HCPCS: 73110

== ENCOUNTER → 2025-09-26 | Outpatient (CLI) | payer MEDICARE, SELFPAY ==
--- NOTE | 2025-09-26 11:54 | CT_ITS ---
PROCEDURE: ABDOMEN/PELVIS WITH CONTRAST 09/26/2025 REASON FOR EXAM: ABDOMINAL PAIN Abdominal pain. History of prior hernia repair. TECHNIQUE: Procedure Code: [id number] Modality: CT Procedure: ABDOMEN/PELVIS WITH CONTRAST Coronal and Sagittal reconstruction series were provided. CONTRAST: Isovue 370 VOLUME: 90 mL One or more dose reduction techniques were used (e.g., Automated exposure control, adjustment of the mA and/or kV according to patient size, use of iterative reconstruction technique. RADIATION DOSE SUMMARY: CTDlvol: 19.2 mGy DLP: 1842.55 mGycm COMPARISON: December 07, 2022. FINDINGS: Lung bases: Mild increase the suggestive of either mild linear atelectasis and/or scarring. An esophageal metallic ring is seen at the gastroesophageal junction. Liver: Borderline hepatomegaly. Stable 1.2 cm cyst in the left lobe of the liver. Gallbladder: Unremarkable Spleen: Normal size. Pancreas: Normal size without evidence of mass surrounding inflammation or ductal dilation. Adrenals: Unremarkable Kidneys: Normal renal sizes. No hydronephrosis. Bladder: Unremarkable Reproductive Organs: Prior hysterectomy. Adnexal regions are unremarkable. Bowel: Diffuse sigmoid diverticulosis. Mild degree of increased markings in the surrounding peritoneal fat suggestive of possible mild early diverticulitis. Appendix: The patient is status post appendectomy by history. Stable mild atelectasis and/or scarring at the lung bases. Lymph nodes: Unremarkable. Vasculature: Mild diffuse atherosclerotic calcifications are noted. Peritoneum / Retroperitoneum: Unremarkable Bones: Degenerative changes of the spine. Prior bilateral hip replacements causing beam artifact and limited visualization of the deep pelvic organs. Status post fixation of the left pelvic bones. Prior kyphoplasty of the T9, T12 and L1 vertebrae. CT/Abdomen/Pelvis WITH Contrast IMPRESSION: Stable small cyst in the left lobe of the liver. Prior hiatal hernia metallic ring placement. Sigmoid diverticulosis and possible mild diverticulitis. Limited evaluation du e to beam hardening artifact. Reading Location: [id number]
[2025-09-26 13:34] LABS: Hematocrit 40.6 % (37-47); Hemoglobin 13.4 g/dL (12.0-15.0); Immature Granulocytes Count 0.020 X10^3/uL (0.0-0.0); Mean Corp Hgb Conc 33.0 g/dL (32-36); Mean Corpuscular Volume 90.0 fL (81-99); Mean Platelet Vol. 10.5 fl (6.2-12.0); NRBC Flagged by Analyzer 0 % (0-5); Platelet Count 278 K/mm3 (150-450); RBC Distribution Width CV 13.5 % (11.6-14.6); RBC Distribution Width SD 45.0 fl (35.1-43.9); Red Blood Count 4.51 M/mm3 (4.2-5.4); White Blood Count 7.5 K/mm3 (4.4-11.0)
[2025-09-26 13:58] LABS: AST(SGOT) 20 U/L (<=31); Alanine Aminotransfer ALT/SGPT 11 U/L (<=34); Albumin, Serum 4.0 g/dL (3.4-4.8); Alkaline Phosphatase 67 U/L (35-104); Anion Gap 11 (5-15); BUN 9 mg/dL (4-19); BUN/Creat Ratio 14.3 RATIO (10-20); Calcium,Total 9.1 mg/dL (7.6-11.0); Carbon Dioxide 25.5 mmol/L (21.0-32.0); Chloride 94 mmol/L (98-108); Globulin 3.2 g/dL (2.2-4.2); Glucose 81 mg/dL (70-99); LDH 171 U/L (84-246); Potassium 3.8 mmol/L (3.3-5.1)
== END | disposition home or self-care (01) ==
PROVIDERS: PCP Internal Medicine; Visit Provider Internal Medicine Gastroenterology
DX: R14.0 Abdominal distension (gaseous) (principal); D64.9 Anemia, unspecified; R10.9 Unspecified abdominal pain
CPT/HCPCS: 36415; 74177; 80053; 83615; 85025; 85652; Q9967; A4216